=== PATIENT | female | born 1950 | race Caucasian/White ===

== ENCOUNTER 2017-05-07 16:50 | Emergency (ER) | payer MEDICARE, MEDICAID, SELFPAY ==
[2017-05-07 16:50] VITALS: BP 118/58; PULSE 52; RESP 18; TEMP 36.6; O2SAT 95; BMI 28.3
--- NOTE | 2017-05-07 16:58 | XR_ITS ---
XR elbow RT min 3V HISTORY: Pain following injury ITS.REASON: fall c/o pain ORDERING PHYSICIAN: Adrien Mehta MD PATIENT AGE: 66 years COMPARISON: None FINDINGS: BONY STRUCTURES: No fracture or dislocation. No lytic or blastic change. Normal mineralization. SOFT TISSUES: Unremarkable. No radio opaque foreign bodies. No displaced fat pad. JOINT SPACE: Well-preserved. No significant arthritic changes evident. IMPRESSION: Negative right elbow.
--- NOTE | 2017-05-07 16:58 | CT_ITS ---
CT facial bones wo con CLINICAL INDICATION: Patient pain and swelling, contusion, abrasion following injury ITS.REASON: fall ORDERING PHYSICIAN: Adrien Mehta MD PATIENT AGE: 66 years COMPARISON: None TECHNIQUE:Axial, sagittal, and coronal images are generated and reviewed without contrast COMPARISON: None FINDINGS: Bones: Unremarkable. No fracture, lytic, or blastic changes evident Extracranial soft tissues: Unremarkable Sinuses: Unremarkable. No air-fluid levels or significant mucosal thickening Orbits: Unremarkable Other: No other pertinent findings IMPRESSION: NO ACUTE FRACTURE OR OTHER ACUTE ANOMALY
--- NOTE | 2017-05-07 16:58 | CT_ITS ---
CT cervical spine wo con INDICATION: Neck pain following injury ITS.REASON: fall ORDERING PHYSICIAN: Adrien Mehta MD PATIENT AGE: 66 years COMPARISON: None TECHNIQUE: Axial images are obtained without contrast. Sagittal and coronal reformatted images are reviewed as well. FINDINGS: There is normal alignment. Multilevel degenerative disc disease is present with endplate hypertrophic change. No fracture or dislocation. C2-C3: Degenerative disc disease. C3-C4: Degenerative disc disease with endplate osteophytes with borderline canal stenosis along with left lateral recess narrowing C4-C5: Degenerative disc disease with endplate hypertrophic change and canal stenosis. C5-C6: Degenerative disc disease with canal stenosis with endplate osteophyte. Bilateral foraminal narrowing. C6-7: Degenerative disc disease. C7-T1: Unremarkable. There is scarring in the right apex. IMPRESSION: 1. No acute fracture. 2. Cervical spondylosis with degenerative disc disease, endplate disc osteophyte complexes with canal stenosis and facet arthritic change at multiple levels
--- NOTE | 2017-05-07 16:58 | CT_ITS ---
CT head/brain wo con HISTORY: Headache following injury, concussion, contusion with abrasion ITS.REASON: fall ORDERING PHYSICIAN: Adrien Mehta MD PATIENT AGE: 66 years COMPARISON: None TECHNIQUE: Axial images obtained without contrast. Brain and bone windows reviewed. FINDINGS: No midline shift, mass effect, intracranial hemorrhage, hydrocephalus, or extra-axial fluid collection is evident. Chronic white matter ischemic change with mild atrophy The calvarium has an unremarkable appearance. No mastoid effusion. No sinus air-fluid levels.. IMPRESSION: No acute finding.
--- NOTE | 2017-05-07 16:58 | XR_ITS ---
XR hip RT 2-3V w/pelvis HISTORY: Pain following injury ITS.REASON: fall, c/o pain ORDERING PHYSICIAN: Adrien Mehta MD PATIENT AGE: 66 years COMPARISON: 09/28/2016 FINDINGS: There are bilateral total hip prosthesis present. No evidence of acute fracture, dislocation, or prosthesis complication. IMPRESSION: No acute finding, total hip prosthesis present
--- NOTE | 2017-05-07 17:05 | HMH.EDFALL ---
ED Disposition Clinical Impression: Concussion without loss of consciousness Qualifiers: Encounter type: initial encounter Qualified Code(s): S06.0X0A - Concussion without loss of consciousness, initial encounter Facial contusion Qualifiers: Encounter type: initial encounter Qualified Code(s): S00.83XA - Contusion of other part of head, initial encounter Contusion of elbow, right Qualifiers: Encounter type: initial encounter Qualified Code(s): S50.01XA - Contusion of right elbow, initial encounter Disposition: Home, Self-Care Condition on Discharge: Good Additional Instructions: resume orders Referrals: dArien Mehta MD [Primary Care Provider] - - Critical Care Critical Care Time: No Attestation: On , the high probability of a clinically significant, sudden or life threatening deterioration of the following system(s) required my full and direct attention, intervention and personal management. The time I documented below is in addition to time spent performing reported procedures but includes the following listed in this critical care notation. Medical Decision Making - Medical Records Medical records reviewed: Yes: I reviewed the patient's medical records. Vital Signs: 05/07/17 16:50 Temperature 97.8 F Temperature Source Oral Pulse Rate [Right Brachial] 52 L Respiratory Rate 18 Blood Pressure [Right Arm] 118/58 Blood Pressure Mean [Right Arm] 78 Blood Pressure Source [Right Arm] Automatic Cuff Blood Pressure Position [Right Arm] Sitting 02 Sat by Pulse Oximetry 95 Oxygen Delivery Method Room Air Orders (Tests/Meds): ORDERS Category Date Time Status CT cervical spine wo con Stat Cat Scan 05/07/17 16:[address] facial bones wo con Stat Cat Scan 05/07/17 16:[address] head/brain wo con Stat Cat Scan 05/07/17 16:58 Taken XR elbow RT min 3V Stat Exams 05/07/17 16:58 Taken XR hip RT 2-3V w/pelvis Stat Exams 05/07/17 16:58 Taken - Radiology Data #1 Image(s): Elbow, Hip Image Reviewed: Yes I reviewed the patient's radiology image Preliminary Findings: No Fracture Seen - CT Data CT Scan: Head, C-Spine, Sinus Time Received: 18:[address] Reviewed: Yes: I have viewed the radiologist's interpretation Preliminary Findings: No Fracture Seen - Sukhwinder Inquiry Pt receiving controlled substance: No Fall HPI - General Chief Complaint: Fall Stated Complaint: fall Time Seen by Provider: 05/07/17 17:05 Mode of Arrival: EMS Source of Information: Patient, EMS, Medical Record Limitations: No Limitations Description of Symptoms (Recalled from ER Triage Doc. by RN): REPORTS TRIPPED GOING INTO THE BATHROOM CAUSING FALL, UNWITNESSED. PT REPORTS R HIP PAIN, R ELBOW PAIN AND PAIN IN ON R SIE OF FOREHEAD. - History of Present Illness HPI Narrative: trip injury at senior care with head and neck injury and rt elbow and rt hip w/o loc MD complaint: fall Onset (ago): hour(s) Fall from: standing Fall witnessed: yes, by living facility staff Place fall occurred: home Loss of consciousness: none Prolonged down time: no Symptoms prior to fall: none Context: tripped/slipped Location of injury: head, face, neck Location of injury - extremities: Right: elbow, thigh Severity: moderate - Related Data Allergies Allergy/AdvReac Type Severity Reaction Status Date / Time egg [From EGGS (FOOD/DRUG)] Allergy Unknown I-RASH Unverified 04/09/17 15:07 Penicillins [PENICILLINS] Allergy Unknown Unverified 04/09/17 15:07 Sulfa (Sulfonamide Allergy Unknown Unverified 04/09/17 15:07 Antibiotics) [SULFA (SULFONAMIDE ANTIBIOTICS)] trimethoprim [TRIMETHOPRIM] Allergy Unknown Unverified 04/09/17 15:07 From EGGS (FOOD/DRUG) Allergy Unknown I-RASH Uncoded 04/09/17 15:07 [facility] History I have reviewed the patient's past medical history: Yes Medical History: Denies:: Cancer, Diabetes Mellitus Type 1, Diabetes Mellitus Type 2, MRSA Laterality Cases: Bilateral: Total Hip Replacement
[2017-05-07 18:54] VITALS: BP 135/85; PULSE 57; RESP 20; O2SAT 94
== END 2017-05-07 18:56 | disposition home or self-care (01) ==
PROVIDERS: Emergency Provider Emergency Medicine; Family Provider Emergency Medicine; PCP Emergency Medicine
DX: S06.0X0A Concussion without loss of consciousness, initial encounter (principal); S00.83XA Contusion of other part of head, initial encounter; S50.01XA Contusion of right elbow, initial encounter; W01.0XXA Fall on same level from slipping, tripping and stumbling without subsequent striking against object, initial encounter; Y93.01 Activity, walking, marching and hiking; Y92.192 Bathroom in other specified residential institution as the place of occurrence of the external cause; Z96.643 Presence of artificial hip joint, bilateral; Z87.891 Personal history of nicotine dependence
CPT/HCPCS: 70450; 70486; 72125; 73080; 73502; 99283

== ENCOUNTER 2017-05-14 15:28 | Emergency (ER) | payer MEDICARE, MEDICAID, SELFPAY ==
[2017-05-14 15:30] VITALS: BP 117/56; PULSE 56; RESP 16; TEMP 36.7; O2SAT 94; BMI 25.8
--- NOTE | 2017-05-14 15:38 | CT_ITS ---
CT head/brain wo con HISTORY: Headache, contusion, abrasion following injury ITS.REASON: fall ORDERING PHYSICIAN: Dianna Rizzo MD PATIENT AGE: 66 years COMPARISON: 05/07/2017 TECHNIQUE: Axial images obtained without contrast. Brain and bone windows reviewed. FINDINGS: No midline shift, mass effect, intracranial hemorrhage, hydrocephalus, or extra-axial fluid collection is evident. There is atrophy with microangiopathic gliotic change. Skin clips are present in the left parietal area. No evidence of fracture. Mild soft tissue swelling left scalp parietal area. The calvarium has an unremarkable appearance. No mastoid effusion. No sinus air-fluid levels.. IMPRESSION: 1. No acute intracranial finding. 2. Left parietal scalp laceration.
--- NOTE | 2017-05-14 15:39 | CT_ITS ---
CT lumbar spine wo con INDICATION: Low back pain following injury ITS.REASON: fall ORDERING PHYSICIAN: Dianna Rizzo MD PATIENT AGE: 66 years COMPARISON: None TECHNIQUE: Axial images are obtained without contrast. Sagittal and coronal reformatted images are reviewed as well. FINDINGS: Mildly depressed fracture is present involving the left 11th and 12th ribs posteriorly. No lumbar fracture apparent. No dislocation. There is mild anterolisthesis of L5 on S1 of 5 mm which is degenerative in nature with mild degenerative disc disease at L5-S1. Bulging disc at L5-S1 with bilateral foraminal narrowing and canal stenosis. Nonobstructing 2 mm stone is present in the lower pole the right kidney. A moderate amount of retained colonic feces. IMPRESSION: 1. Mildly depressed left 12th and 11th rib fractures. 2. No acute lumbar fracture. 3. Mild anterolisthesis of L5 on S1 with degenerative disc disease, canal stenosis, and bilateral foraminal narrowing
--- NOTE | 2017-05-14 15:39 | CT_ITS ---
CT cervical spine wo con INDICATION: Neck pain following injury ITS.REASON: fall ORDERING PHYSICIAN: Dianna Rizzo MD PATIENT AGE: 66 years COMPARISON: None TECHNIQUE: Axial images are obtained without contrast. Sagittal and coronal reformatted images are reviewed as well. FINDINGS: There is normal alignment. Multilevel degenerative disc disease is present with endplate hypertrophic change. No fracture or dislocation. C2-C3: Degenerative disc disease. C3-C4: Degenerative disc disease with endplate osteophytes with borderline canal stenosis along with left lateral recess narrowing C4-C5: Degenerative disc disease with endplate hypertrophic change and canal stenosis. C5-C6: Degenerative disc disease with canal stenosis with endplate osteophyte. Bilateral foraminal narrowing. C6-7: Degenerative disc disease. C7-T1: Minimal anterolisthesis of C7 3 mm. There is scarring in the right apex. IMPRESSION: 1. No acute fracture. 2. Cervical spondylosis with degenerative disc disease, endplate disc osteophyte complexes with canal stenosis and facet arthritic change at multiple levels
--- NOTE | 2017-05-14 15:39 | XR_ITS ---
XR hip LT 2-3V w/pelvis HISTORY: Pain following injury ITS.REASON: fall ORDERING PHYSICIAN: Dianna Rizzo MD PATIENT AGE: 66 years COMPARISON: 09/28/2016 FINDINGS: Total left hip prosthesis present in good alignment without evidence of acute fracture or other orthopedic complications. IMPRESSION: Left hip prosthesis present, no acute finding
--- NOTE | 2017-05-14 15:39 | CT_ITS ---
CT pelvis wo con INDICATION: Pelvic pain following injury ITS.REASON: fell pelvis pain ORDERING PHYSICIAN: Dianna Rizzo MD PATIENT AGE: 66 years COMPARISON: None TECHNIQUE: Axial images are obtained without contrast. Sagittal and coronal reformatted images are reviewed as well. FINDINGS: There is extensive artifact bilateral hip prosthesis. This could obscure a fracture. No acute fractures evident regarding the areas not affected by the extensive artifact. No obvious pelvic hematoma. Mild amount retained colonic feces. IMPRESSION: 1. Extensive artifact from bilateral hip prosthesis. 2. No obvious acute fracture evident.
--- NOTE | 2017-05-14 15:39 | XR_ITS ---
XR hip RT 2-3V w/pelvis HISTORY: Post traumatic pain ITS.REASON: fall ORDERING PHYSICIAN: Dianna Rizzo MD PATIENT AGE: 66 years COMPARISON: 05/07/2017 FINDINGS: Total right hip prosthesis is present without evidence of fracture or other orthopedic complications. IMPRESSION: No change right hip prosthesis with no acute finding
--- NOTE | 2017-05-14 15:40 | HMH.EDFALL ---
ED Disposition Clinical Impression: Scalp laceration, Rib fracture Disposition: Home, Self-Care Condition on Discharge: Fair Instructions: DI for Low Back Pain Additional Instructions: 1- rest. 2- fall precautions. 3- IR 10 times whilw awake. 4- follow up with pcp jasmina on final x ray reports. Referrals: Adrien Mehta MD [Primary Care Provider] - - Critical Care Critical Care Time: No Attestation: On 05/14/17, the high probability of a clinically significant, sudden or life threatening deterioration of the following system(s) required my full and direct attention, intervention and personal management. The time I documented below is in addition to time spent performing reported procedures but includes the following listed in this critical care notation. Medical Decision Making Vital Signs: 05/14/17 15:30 Temperature 98.1 F Temperature Source Oral Pulse Rate [Right Brachial] 56 L Respiratory Rate 16 Blood Pressure [Right Arm] 117/56 Blood Pressure Mean [Right Arm] 76 Blood Pressure Source [Right Arm] Automatic Cuff Blood Pressure Position [Right Arm] Sitting 02 Sat by Pulse Oximetry 94 L Oxygen Delivery Method Room Air Nasal Cannula - Lab Data Lab Results 05/14/17 16:20: Urine Color Yellow, Urine Appearance Clear, Urine pH 6.0, Ur Specific [place] 1.010, Urine Protein Negative, Urine Glucose (UA) Negative, Urine Ketones Negative, Urine Blood Negative, Urine Nitrate Negative, Urine Bilirubin Negative, Urine Urobilinogen 0.2, Ur Leukocyte Esterase Trace Orders (Tests/Meds): ORDERS Category Date Time Status UA [Urinalysis and Microscopic] Stat Lab 05/14/17 16:20 Results - Radiology Data #1 Image(s): Chest, Hip, Femur Image Reviewed: Yes I reviewed the patient's radiology results, Yes I reviewed the patient's radiology image, Yes I have reviewed radiologist's interpretation - Sukhwinder Inquiry Pt receiving controlled substance: No Sukhwinder was queried for this patient: No Medical Decision Making Narrative: CT pelvis was negative for fractures. Ct LUMbar: IMPRESSION: 1. Mildly depressed left 12th and 11th rib fractures. 2. No acute lumbar fracture. 3. Mild anterolisthesis of L5 on S1 with degenerative disc disease, canal stenosis, and bilateral foraminal narrowing ct scalp was poisitive for a hematoma: CT cervical spine IMPRESSION: 1. No acute fracture. 2. Cervical spondylosis with degenerative disc disease, endplate disc osteophyte complexes with canal stenosis and facet arthritic change at multiple levels Fall HPI - General Chief Complaint: Fall Stated Complaint: fall Mode of Arrival: Ambulatory Limitations: No Limitations Description of Symptoms (Recalled from ER Triage Doc. by RN): fall with injury - History of Present Illness HPI Narrative: 66 years old white female came from [place]. She is status post bilateral hip replacement. She reports that she tripped and fell and hit her head. This resulted in a left occipital laceration. The patient denies loss of consciousness. She complains of left leg pain. MD complaint: fall Onset (ago): minute(s) Fall from: standing Fall witnessed: yes, by living facility staff Place fall occurred: snf/SNF Loss of consciousness: none Prolonged down time: no Context: tripped/slipped Location of injury: head Location of injury - extremities: Left: lower leg Severity: moderate Quality: dull Associated symptoms (after fall): other (He does have low back pain. ) - Related Data Allergies Allergy/AdvReac Type Severity Reaction Status Date / Time egg [From EGGS (FOOD/DRUG)] Allergy Unknown I-RASH Unverified 04/09/17 15:07 Penicillins [PENICILLINS] Allergy Unknown Unverified 04/09/17 15:07 Sulfa (Sulfonamide Allergy Unknown Unverified 04/09/17 15:07 Antibiotics) [SULFA (SULFONAMIDE ANTIBIOTICS)] trimethoprim [TRIMETHOPRIM] Allergy Unknown Unverified 04/09/17 15:07 From EG
--- NOTE | 2017-05-14 15:43 | ED_ITS ---
ED Disposition Clinical Impression: Scalp laceration, Rib fracture Disposition: Home, Self-Care Condition on Discharge: Fair Instructions: DI for Low Back Pain Additional Instructions: 1- rest. 2- fall precautions. 3- IR 10 times whilw awake. 4- follow up with pcp jasmina on final x ray reports. Referrals: Adrien Mehta MD [Primary Care Provider] - - Critical Care Critical Care Time: No Attestation: On 05/14/17, the high probability of a clinically significant, sudden or life threatening deterioration of the following system(s) required my full and direct attention, intervention and personal management. The time I documented below is in addition to time spent performing reported procedures but includes the following listed in this critical care notation. Medical Decision Making Vital Signs: 05/14/17 15:30 Temperature 98.1 F Temperature Source Oral Pulse Rate [Right Brachial] 56 L Respiratory Rate 16 Blood Pressure [Right Arm] 117/56 Blood Pressure Mean [Right Arm] 76 Blood Pressure Source [Right Arm] Automatic Cuff Blood Pressure Position [Right Arm] Sitting 02 Sat by Pulse Oximetry 94 L Oxygen Delivery Method Room Air Nasal Cannula - Lab Data Lab Results 05/14/17 16:20: Urine Color Yellow, Urine Appearance Clear, Urine pH 6.0, Ur Specific [place] 1.010, Urine Protein Negative, Urine Glucose (UA) Negative, Urine Ketones Negative, Urine Blood Negative, Urine Nitrate Negative, Urine Bilirubin Negative, Urine Urobilinogen 0.2, Ur Leukocyte Esterase Trace Orders (Tests/Meds): ORDERS Category Date Time Status UA [Urinalysis and Microscopic] Stat Lab 05/14/17 16:20 Results - Radiology Data #1 Image(s): Chest, Hip, Femur Image Reviewed: Yes I reviewed the patient's radiology results, Yes I reviewed the patient's radiology image, Yes I have reviewed radiologist's interpretation - Sukhwinder Inquiry Pt receiving controlled substance: No Sukhwinder was queried for this patient: No Medical Decision Making Narrative: CT pelvis was negative for fractures. Ct LUMbar: IMPRESSION: 1. Mildly depressed left 12th and 11th rib fractures. 2. No acute lumbar fracture. 3. Mild anterolisthesis of L5 on S1 with degenerative disc disease, canal stenosis, and bilateral foraminal narrowing ct scalp was poisitive for a hematoma: CT cervical spine IMPRESSION: 1. No acute fracture. 2. Cervical spondylosis with degenerative disc disease, endplate disc osteophyte complexes with canal stenosis and facet arthritic change at multiple levels Fall HPI - General Chief Complaint: Fall Stated Complaint: fall Mode of Arrival: Ambulatory Limitations: No Limitations Description of Symptoms (Recalled from ER Triage Doc. by RN): fall with injury - History of Present Illness HPI Narrative: 66 years old white female came from [place]. She is status post bilateral hip replacement. She reports that she tripped and fell and hit her head. This resulted in a left occipital laceration. The patient denies loss of consciousness. She complains of left leg pain. MD complaint: fall Onset (ago): minute(s) Fall from: standing Fall witnessed: yes, by living facility staff Place fall occurred: custodial/SNF Loss of consciousness: none Prolonged down time: no Context: tripped/slipped Location of inj
--- NOTE | 2017-05-14 15:45 | XR_ITS ---
XR femur LT 1V CLINICAL INDICATION: Posttraumatic pain ITS.REASON: fall ORDERING PHYSICIAN: Dianna Rizzo MD PATIENT AGE: 66 years COMPARISON: None FINDINGS: Total left hip prosthesis is present without evidence of acute complication. Mild osteoarthritic change involves the left knee. No acute fracture or dislocation. IMPRESSION: No acute finding
[2017-05-14 16:37] LABS: Appearance,Urine CLEAR (Clear); Bilirubin,Urine Negative (Negative); Blood, Urine Negative (Negative); Color,Urine YELLOW (Yellow); Glucose,Urine (UA) Negative (Negative); Ketones,Urine Negative (Negative); Leukocyte Esterase,Urine TRACE (Negative); Microscopic, Urine URINE MICROSCOPIC (MICROSCOPIC); Nitrate,Urine Negative (Negative); Protein,Urine Negative (Negative); Urobilinogen,Urine 0.2 EU/dl (0.2)
--- NOTE | 2017-05-14 17:00 | XR_ITS ---
XR chest AP HISTORY: ITS.REASON: CHEST PAIN POST FALL ORDERING PHYSICIAN: Dianna Rizzo MD PATIENT AGE: 66 years COMPARISON: 10/24/2016 FINDINGS: Prior median sternotomy. Mild cardiomegaly without failure.. Chronic changes. No lobar consolidation or collapse.. No acute bony abnormalities. IMPRESSION: Cardiomegaly with chronic changes. No acute finding
--- NOTE | 2017-05-14 17:33 | PC.NURSE ---
RU CALLED, ADVISED PT WAS READY TO BE PICKED UP.
[2017-05-14 18:09] LABS: Bacteria,Urine Trace /lpf; Squamous Epithelial Cell,Urine Occasional #/hpf (0-5); WBC,Urine Occasional #/hpf (0-3)
== END 2017-05-14 19:09 | disposition home or self-care (01) ==
PROVIDERS: Emergency Provider Emergency Medicine; Family Provider Emergency Medicine; PCP Emergency Medicine
DX: S01.01XA Laceration without foreign body of scalp, initial encounter (principal); S22.42XA Multiple fractures of ribs, left side, initial encounter for closed fracture; W01.0XXA Fall on same level from slipping, tripping and stumbling without subsequent striking against object, initial encounter; Y93.9 Activity, unspecified; Y92.129 Unspecified place in nursing home as the place of occurrence of the external cause; Z96.643 Presence of artificial hip joint, bilateral; Z87.891 Personal history of nicotine dependence; Z88.0 Allergy status to penicillin; Z88.2 Allergy status to sulfonamides
CPT/HCPCS: 12001; 70450; 71045; 72125; 72131; 72192; 73502; 73551; 81001; 99282

== ENCOUNTER 2017-05-15 14:26 | Emergency (ER) | payer MEDICARE, MEDICAID, SELFPAY ==
[2017-05-15 14:28] VITALS: BP 192/51; PULSE 50; RESP 12; TEMP 36.5; O2SAT 98; BMI 27.4
--- NOTE | 2017-05-15 15:00 | CT_ITS ---
CT head/brain wo con HISTORY: Headache, contusion, abrasion following injury, frontal scalp contusion/laceration ITS.REASON: FELL AT [facility] ORDERING PHYSICIAN: Mulugeta Cristina MD PATIENT AGE: 66 years COMPARISON: 05/14/2017 TECHNIQUE: Axial images obtained without contrast. Brain and bone windows reviewed. FINDINGS: No midline shift, mass effect, intracranial hemorrhage, hydrocephalus, or extra-axial fluid collection is evident. Mild generalized atrophy with microangiopathic gliotic changes. Increased soft tissue swelling is present in the left parietal region with skin clips at that area. The calvarium has an unremarkable appearance. No mastoid effusion. No sinus air-fluid levels.. IMPRESSION: 1. No acute intracranial findings. 2. Left parietal scalp hematoma is larger on today's exam.
--- NOTE | 2017-05-15 15:00 | CT_ITS ---
CT cervical spine wo con INDICATION: Neck pain following injury ITS.REASON: FELL AT CARE HOME COMPARISON: None TECHNIQUE: Axial images are obtained without contrast. Sagittal and coronal reformatted images are reviewed as well. FINDINGS: There is normal alignment. Multilevel degenerative disc disease is present with endplate hypertrophic change. No fracture or dislocation. C2-C3: Degenerative disc disease. C3-C4: Degenerative disc disease with endplate osteophytes with borderline canal stenosis along with left lateral recess narrowing C4-C5: Degenerative disc disease with endplate hypertrophic change and canal stenosis. C5-C6: Degenerative disc disease with canal stenosis with endplate osteophyte. Bilateral foraminal narrowing. C6-7: Degenerative disc disease. C7-T1: Minimal anterolisthesis of C7 3 mm. There is scarring in the right apex. Left lobe of thyroid gland is slightly enlarged. Scattered small lymph nodes are present in the neck IMPRESSION: 1. No acute fracture. 2. Cervical spondylosis with degenerative disc disease, endplate disc osteophyte complexes with canal stenosis and facet arthritic change at multiple levels
[2017-05-15 16:34] VITALS: BP 114/84; PULSE 94; RESP 16; O2SAT 99
--- NOTE | 2017-05-15 16:36 | HMH.EDGENADL ---
ED Disposition Condition on Discharge: Good - Critical Care Critical Care Time: No <Mulugeta Cristina - Last Filed: 05/15/17 20:28> <Adrien Mehta - Last Filed: 05/16/17 08:56> Clinical Impression: Scalp hematoma Qualifiers: Encounter type: initial encounter Qualified Code(s): S00.03XA - Contusion of scalp, initial encounter Fall Qualifiers: Encounter type: initial encounter Qualified Code(s): W19.XXXA - Unspecified fall, initial encounter Dilantin toxicity Qualifiers: Encounter type: initial encounter Injury intent: accidental or unintentional Qualified Code(s): T42.0X1A - Poisoning by hydantoin derivatives, accidental (unintentional), initial encounter Disposition: Home, Self-Care Instructions: How to Prevent Falls, DI for Closed Head Injury Additional Instructions: Additional instructions for HEAD INJURY: See your physician as soon as possible for further evaluation. Return immediately if severe headache, vomiting, problems with vision or speech, numbness or weakness of the extremities, or severe neck pain. Referrals: Adrien Mehta MD [Primary Care Provider] - Attestation: On 05/15/17, the high probability of a clinically significant, sudden or life threatening deterioration of the following system(s) required my full and direct attention, intervention and personal management. The time I documented below is in addition to time spent performing reported procedures but includes the following listed in this critical care notation. Medical Decision Making - Lab Data Result diagrams: 05/15/17 17:40 05/15/17 17:40 - CT Data CT Scan: Head, C-Spine Time Received: 16:[address] Reviewed: Yes: I have viewed the radiologist's interpretation - Sukhwinder Inquiry Pt receiving controlled substance: No <Mulugeta Cristina - Last Filed: 05/15/17 20:28> - Lab Data Result diagrams: 05/15/17 17:40 05/15/17 17:40 <Adrien Mehta - Last Filed: 05/16/17 08:56> Vital Signs: 05/15/17 14:28 05/15/17 16:34 05/15/17 18:34 Temperature 97.7 F 97.7 F Temperature Source Oral Axillary Pulse Rate [Right Brachial] 50 L 94 H 57 L Respiratory Rate 12 16 18 Blood Pressure [Right Arm] 192/51 114/84 198/65 Blood Pressure Mean [Right Arm] 98 94 109 Blood Pressure Source [Right Arm] Automatic Cuff Automatic Cuff Automatic Cuff Blood Pressure Position [Right Arm] Supine Sitting Supine 02 Sat by Pulse Oximetry 98 99 100 Oxygen Delivery Method Room Air Room Air Room Air 05/15/17 22:18 05/16/17 01:37 Temperature Temperature Source Pulse Rate [Right Brachial] 55 L 52 L Respiratory Rate 18 16 Blood Pressure [Right Arm] 190/44 193/65 Blood Pressure Mean [Right Arm] 92 107 Blood Pressure Source [Right Arm] Automatic Cuff Automatic Cuff Blood Pressure Position [Right Arm] Supine Supine 02 Sat by Pulse Oximetry 97 100 Oxygen Delivery Method Room Air Room Air - Lab Data Lab Results 05/15/17 17:40: WBC 9.1, RBC 4.17 L, Hgb 13.0, Hct 39.2, MCV 94.0, MCH 31.2, MCHC 33.1, RDW 14.8, Plt Count 194, MPV 8.1, Neut % (Auto) 72.9, Lymph % (Auto) 17.3, [place] % (Auto) 5.2, Eos % (Auto) 4.1, Baso % (Auto) 0.5, Neut # (Auto) 6.7, Lymph # (Auto) 1.6, [place] # (Auto) 0.5, Eos # (Auto) 0.4, Baso # (Auto) 0.0 05/15/17 17:40: Sodium 148 H, Potassium 3.5, Chloride 106, Carbon Dioxide 33 H, Anion Gap 12.5, BUN 8, Creatinine 0.76, Estimated Creat Clear 63, Estimated GFR 76, Est GFR ( Amer) 92, Glucose 121 H, Calcium 8.5, Total Bilirubin 0.6, AST 25, ALT 24, Alkaline Phosphatase 175 H, Total Creatine Kinase 183, CK-MB (CK-2) 1.2, CK-MB (CK-2) Rel Index 0.7, Troponin I 0.03, Total Protein 6.7, Albumin 3.6, Globulin 3.1, Albumin/Globulin Ratio 1.2, Phenytoin 50.5 H* 05/15/17 17:40: Urine Color Yellow, Urine Appearance Clear, Urine pH 7.5, Ur Specific [place] 1.010, Urine Protein Negative, Urine Glucose (UA) Negative, Urine Ketones Negative, Urine Blood 1+, Urine Nitrate Negative, Urine Bilirubin Negative, Urine Urobilinogen 0.2, Ur Le
--- NOTE | 2017-05-15 16:59 | XR_ITS ---
XR chest portable HISTORY: Cough and congestion ITS.REASON: cough, congestion ORDERING PHYSICIAN: Mulugeta Cristina MD PATIENT AGE: 66 years COMPARISON: 05/14/2017 FINDINGS: Prior median sternotomy with mild cardiomegaly without failure.. The lungs are clear without infiltrates, suspicious nodules, or pleural effusions. No acute bony abnormalities. IMPRESSION: No change with no acute finding
--- NOTE | 2017-05-15 17:02 | PC.NURSE ---
INFORMED P.T. THAT A P.T. EVAL HAS BEEN ORDERED ON PATIENT. STATED ALL PHYSICAL THERAPISTS WERE WITH PATIENT'S. I ASKED IF SHE COULD RELAY THE MESSAGE TO THEM. I INFORMED SHARLA, CARE MANAGEMENT OF REQUEST.
[2017-05-15 18:01] LABS: Microscopic, Urine URINE MICROSCOPIC (MICROSCOPIC)
[2017-05-15 18:06] LABS: Basophils % 0.5 % (0.1-2.0); Eosinophils # 0.4 K/mm3 (0.0-0.4); Eosinophils % 4.1 % (0.1-12.0); Hematocrit 39.2 % (37.0-47.0); Lymphocytes # 1.6 K/mm3 (0.7-4.5); Lymphocytes % 17.3 K/mm3 (10-50); Mean Corpuscular HGB Conc 33.1 g/dL (31.8-35.4); Mean Corpuscular Hemoglobin 31.2 pg (27.0-31.2); Mean Platelet Volume 8.1 fl (7.4-10.4); Monocytes # 0.5 K/mm3 (0.1-1.0); Monocytes % 5.2 % (1.7-9.3); Neutrophils # 6.7 K/mm3 (1.8-7.8); Neutrophils % 72.9 % (37.0-80.0); Platelet Count 194 K/mm3 (142-424); Red Blood Count 4.17 M/mm3 (4.20-5.40); Red Cell Distribution Width 14.8 % (11.5-17.5); White Blood Count 9.1 K/mm3 (4.8-10.8)
[2017-05-15 18:08] LABS: Appearance,Urine CLEAR (Clear); Bilirubin,Urine Negative (Negative); Blood, Urine 1+ (Negative); Color,Urine YELLOW (Yellow); Glucose,Urine (UA) Negative (Negative); Ketones,Urine Negative (Negative); Leukocyte Esterase,Urine Negative (Negative); Nitrate,Urine Negative (Negative); PH,Urine 7.5 (5.0-8.5); Protein,Urine Negative (Negative); Urobilinogen,Urine 0.2 EU/dl (0.2)
[2017-05-15 18:34] VITALS: BP 198/65; PULSE 57; RESP 18; TEMP 36.5; O2SAT 100
[2017-05-15 18:34] LABS: RBC,Urine Occasional #/hpf (0-3); Squamous Epithelial Cell,Urine Occasional #/hpf (0-5)
[2017-05-15 18:35] LABS: Hyaline Casts,Urine Occasional #/lpf (0)
[2017-05-15 18:38] LABS: Alanine Aminotransferase 24 U/L (12-78); Albumin Level 3.6 gm/dL (3.4-5.0); Albumin/Globulin Ratio 1.2 (1.1-1.8); Alkaline Phosphatase 175 U/L (46-116); Anion Gap 12.5 mEq/L (5-15); Aspartate Amino Transferase 25 U/L (15-37); Bilirubin,Total 0.6 mg/dL (0.2-1.0); Blood Urea Nitrogen 8 mg/dL (7-18); Calcium 8.5 mg/dL (8.5-10.1); Carbon Dioxide 33 mmol/L (21.0-32.0); Chloride 106 mmol/L (98-107); Creatine Kinase 183 U/L (26-192); Creatinine Clearance Estimated 63 mL/min (0-300); Creatinine,Serum 0.76 mg/dL (0.55-1.02); Estimated Glomerular Filt Rate 76 ml/min (>60); GFR (African American) 92 ML/MIN (>60); Globulin 3.1 gm/dl (1.3-3.2); Glucose 121 mg/dL (74-106); Potassium 3.5 mmoL/L (3.5-5.1); Sodium 148 mmol/L (136-145); Total Protein,Serum 6.7 gm/dL (6.4-8.2); Troponin I 0.03 ng/ml (0.00-0.06)
--- NOTE | 2017-05-15 18:41 | SW/DCPLANNER ---
Addendum entered by Greta Dhillon 05/15/17 19:24: MD has not made decision to admit or discharge at this time. I have informed Tiffany of situation and I have also asked that ED nurse (Janki) contact Tiffany if MD decides to discharge before 9pm and if patient is ready for discharge after 9pm then to call [facility] at [phone] and Tiffany has stated that they will send a otr company driver up once ready. If patient is admitted I will follow up with Tiffany and placement in the AM. Original Note: I have spoke with Tiffany from [facility] regarding this patient this evening. Earlier this evening ED MD did not see a reason to admit this patient and asked PT to see patient. PT stated that they would not be able to see this patient this evening due to having a full schedule. I called and informed Dae of this situation and Tiffany stated that she was fine with this and if patient was ready to be discharged she would send a worker to pick patient up. I then spoke with and he stated that he would prefer do a full work up on this patient then make a decision. Tiffany is aware of situation. Once makes decision after reviewing full work up labs I will contact Tiffany from [facility].
[2017-05-15 19:10] LABS: CKMB Relative Index 0.7 U/L (0-4.0); Creatine Kinase MB 1.2 mg/ml (0.0-3.6)
[2017-05-15 19:11] LABS: Phenytoin (Dilantin) 50.5 ug/mL (10-20)
[2017-05-15 22:18] VITALS: BP 190/44; PULSE 55; RESP 18; O2SAT 97
--- NOTE | 2017-05-15 22:20 | PC.NURSE ---
PT RESTING IN ROOM NO NEEDS EXPRESSED AT THIS TIME. WILL CONTINUE TO MONITOR
[2017-05-16 01:37] VITALS: BP 193/65; PULSE 52; RESP 16; O2SAT 100
[2017-05-16 06:41] LABS: Phenytoin (Dilantin) 38.9 ug/mL (10-20)
[2017-05-16 09:08] LABS: Phenytoin (Dilantin) 37.8 ug/mL (10-20)
[2017-05-16 11:00] VITALS: BP 177/67; PULSE 75; RESP 20; TEMP 36.9; O2SAT 96
== END 2017-05-16 11:01 | disposition home or self-care (01) ==
PROVIDERS: Emergency Medicine; Emergency Provider Emergency Medicine; Family Provider Emergency Medicine; PCP Emergency Medicine
DX: S06.0X0A Concussion without loss of consciousness, initial encounter (principal); S50.01XA Contusion of right elbow, initial encounter; S22.39XA Fracture of one rib, unspecified side, initial encounter for closed fracture; T42.0X1A Poisoning by hydantoin derivatives, accidental (unintentional), initial encounter; I10 Essential (primary) hypertension; Z95.1 Presence of aortocoronary bypass graft; F25.9 Schizoaffective disorder, unspecified; W01.0XXA Fall on same level from slipping, tripping and stumbling without subsequent striking against object, initial encounter; Z91.81 History of falling; Y92.199 Unspecified place in other specified residential institution as the place of occurrence of the external cause; Z79.899 Other long term (current) drug therapy; Z88.0 Allergy status to penicillin; Z88.2 Allergy status to sulfonamides; Z90.49 Acquired absence of other specified parts of digestive tract; Z90.79 Acquired absence of other genital organ(s)
CPT/HCPCS: 70450; 71045; 72125; 80053; 80185; 81001; 82550; 82553; 84484; 85025; 93005; 96365; 99284

== ENCOUNTER 2017-07-23 13:29 | Emergency (ER) | payer MEDICARE, MEDICAID, SELFPAY ==
[2017-07-23] VITALS (7 sets, daily range): BP systolic 89–188; BP diastolic 52–86; PULSE 56–89; RESP 8–18; TEMP 36.1–36.9; O2SAT 96–98; BMI 21.2; BMI 21.4
--- NOTE | 2017-07-23 12:43 | CT_ITS ---
CT head/brain wo con COMPARISON: Noncontrast CT scan of brain 05/15/2017 HISTORY: Patient unresponsive, stroke alert TECHNIQUE: Multiaxial scans obtained from base skull to the vertex and were performed without IV contrast. FINDINGS: The base of skull appears normal, the mastoids are clear. The basilar cisterns are mildly prominent. The ventricular system is normal for age. There is no ischemic infarct or bleed and there are no extra-axial fluid collections. There are mild periventricular hypodensities consistent with chronic ischemic white matter changes. The sylvian fissures and cortical sulci are somewhat prominent. The bony calvarium appears intact. IMPRESSION: No acute findings . Mild cortical atrophy and mild chronic ischemic white matter changes, no acute intracranial pathology noted No significant change since 05/15/2017
--- NOTE | 2017-07-23 12:44 | XR_ITS ---
XR pelvis 1-2V COMPARISON: CT scan the pelvis 05/14/2017 HISTORY: Questionable fall, patient unresponsive cannot give history TECHNIQUE: AP pelvis FINDINGS: The iliac bones appear intact although the right iliac crest is cut off from the top edge of the [id number]. Bilateral total hip prosthesis on noted in each prosthetic acetabulum is fixated to the ilium by a threaded screw. There is good position of the medullary stem in the proximal femurs bilaterally. The soft tissues are normal and the pubic bones are normal. IMPRESSION: No acute pelvic fracture identified
--- NOTE | 2017-07-23 12:44 | XR_ITS ---
XR chest portable COMPARISON: AP spine chest 05/14/2017 HISTORY: Altered mental status, chest pain TECHNIQUE: Portable upright chest FINDINGS: The lung dutta are well expanded and appear clear of infiltrate. There are sternal wire sutures noted likely from previous CABG there is prominent aortic tortuosity with borderline cardio megaly however the is no evidence of failure. There is no pleural fluid. IMPRESSION: Prominent aortic tortuosity, no acute chest pathology noted
[2017-07-23 12:56] LABS: Basophils % 0.4 % (0.1-2.0); Eosinophils # 0.2 K/mm3 (0.0-0.4); Eosinophils % 1.7 % (0.1-12.0); Hematocrit 38.8 % (37.0-47.0); Hemoglobin 12.7 g/dL (12.2-16.2); Lymphocytes # 1.6 K/mm3 (0.7-4.5); Lymphocytes % 14.6 K/mm3 (10-50); Mean Corpuscular HGB Conc 32.8 g/dL (31.8-35.4); Mean Corpuscular Hemoglobin 31.2 pg (27.0-31.2); Mean Platelet Volume 8.2 fl (7.4-10.4); Monocytes # 0.7 K/mm3 (0.1-1.0); Monocytes % 6.7 % (1.7-9.3); Neutrophils # 8.4 K/mm3 (1.8-7.8); Neutrophils % 76.6 % (37.0-80.0); Platelet Count 197 K/mm3 (142-424); Red Blood Count 4.09 M/mm3 (4.20-5.40); Red Cell Distribution Width 14.2 % (11.5-17.5); White Blood Count 10.9 K/mm3 (4.8-10.8)
[2017-07-23 13:02] LABS: Alanine Aminotransferase 18 U/L (12-78); Albumin Level 3.4 gm/dL (3.4-5.0); Albumin/Globulin Ratio 1.1 (1.1-1.8); Alkaline Phosphatase 83 U/L (46-116); Anion Gap 9.6 mEq/L (5-15); Aspartate Amino Transferase 21 U/L (15-37); Bilirubin,Total 0.7 mg/dL (0.2-1.0); Blood Urea Nitrogen 12 mg/dL (7-18); Calcium 9.2 mg/dL (8.5-10.1); Carbon Dioxide 31 mmol/L (21.0-32.0); Chloride 107 mmol/L (98-107); Creatinine Clearance Estimated 48 mL/min (0-300); Creatinine,Serum 0.82 mg/dL (0.55-1.02); Estimated Glomerular Filt Rate 70 ml/min (>60); GFR (African American) 84 ML/MIN (>60); Globulin 3.1 gm/dl (1.3-3.2); Glucose 95 mg/dL (74-106); Potassium 3.6 mmoL/L (3.5-5.1); Sodium 144 mmol/L (136-145); Total Protein,Serum 6.5 gm/dL (6.4-8.2)
[2017-07-23 13:14] LABS: Microscopic, Urine URINE MICROSCOPIC (MICROSCOPIC)
[2017-07-23 13:16] LABS: ABG Base Excess 3.4 mmol/L (-2.4-2.3); ABG Oxygen Saturation 99 % (90-100); ABG PCO2 44.9 mmhg (35.0-45.0); ABG PH 7.41 mmol/L (7.35-7.45); ABG PO2 274.1 mmhg (80-100); ABG TCO2 29.4 mmhg (23-27); Allen's Test Patient Unable; Oxygen 100% %
[2017-07-23 13:17] LABS: Source Left Radial
[2017-07-23 13:18] LABS: Appearance,Urine CLEAR (Clear); Bilirubin,Urine Negative (Negative); Blood, Urine 1+ (Negative); Color,Urine YELLOW (Yellow); Glucose,Urine (UA) Negative (Negative); Ketones,Urine Negative (Negative); Leukocyte Esterase,Urine 2+ (Negative); Nitrate,Urine Negative (Negative); PH,Urine 7.5 (5.0-8.5); Protein,Urine Negative (Negative); Specific Gravity, Urine <= 1.005 (1.005-1.030)
[2017-07-23 13:29] LABS: Bacteria,Urine 3+ /lpf; RBC,Urine Occasional #/hpf (0-3); Squamous Epithelial Cell,Urine Occasional #/hpf (0-5)
--- NOTE | 2017-07-23 13:33 | CT_ITS ---
CT angio chest COMPARISON: AP chest same date HISTORY: Altered mental status, chest pain TECHNIQUE: Multiaxial scans obtained from the thoracic inlet the hemidiaphragms after injection of IV contrast. Sagittal and coronal reformats were evaluated as well. FINDINGS: Lung dutta are well expanded. There is mild generalized cardio megaly. An there are sternal wire sutures likely from previous bypass procedure. There is prominent aortic tortuosity and there is mild aneurysmal dilatation of the ascending aorta measuring 3.8 to 4.4 cm. There is no evidence of aortic dissection. The descending thoracic aorta is mildly dilated as well measuring 3.5 cm in diameter. There is no evidence of PE. The lung dutta are clear of active infiltrate. There is no pleural fluid. There are mild multilevel degenerative changes of the thoracic spine. IMPRESSION: Mild aneurysmal dilatation of the ascending aorta and descending thoracic aorta near the diaphragmatic hiatus without evidence of aortic dissection. There is mild to moderate cardiomegaly without evidence of failure.
--- NOTE | 2017-07-23 13:34 | PC.NURSE ---
escorted patient to ct for cta chest. pt remains unresponsive to anything other than painful stimuli. at that point she simply grimaces both sides of face moving unilaterally.
--- NOTE | 2017-07-23 13:35 | PC.NURSE ---
MALIK MALONE spoke with pt daughter on the phone at this time
--- NOTE | 2017-07-23 13:39 | PC.NURSE ---
MALIK MALONE contacted [facility] [place], spoke with staff who was taking care of pt today
[2017-07-23 13:43] LABS: D-Dimer 1320 ng/mL (0-400)
--- NOTE | 2017-07-23 13:46 | PC.NURSE ---
Pt return from CT PE protocol with staff accompanying pt.
--- NOTE | 2017-07-23 13:48 | PC.NURSE ---
contacted [employer] to check flight status per ER MD request.
--- NOTE | 2017-07-23 13:50 | PC.NURSE ---
[employer] [place] [facility] declined flight r/t weather, dispatch stated they would check with other bases and call us back.
[2017-07-23 13:54] LABS: CKMB Relative Index 2.2 U/L (0-4.0); Creatine Kinase 129 U/L (26-192); Creatine Kinase MB 2.9 ng/ml (0.0-3.6); Troponin I < 0.02 ng/ml (0.00-0.06)
--- NOTE | 2017-07-23 13:55 | HMH.EDAMS ---
ED Disposition Clinical Impression: CVA (cerebral vascular accident), Status epilepticus, Ascending aortic aneurysm, CAD (coronary artery disease), Sinus bradycardia, Altered mental status Disposition: Xfer Short-Term Hosp Condition on Discharge: Fair Instructions: DI for Altered Mental Status Referrals: Adrien Mehta MD [Primary Care Provider] - Forms: Transfer Record - ED - Critical Care Critical Care Time: Yes (1 hour) Attestation: On , the high probability of a clinically significant, sudden or life threatening deterioration of the following system(s) required my full and direct attention, intervention and personal management. The time I documented below is in addition to time spent performing reported procedures but includes the following listed in this critical care notation. Vital system(s) involved:: Circulatory Failure, Central Nervous System My critical care processes included: Assessment & monitoring of V/S, Initial and Re-exams, Data Review/Interpretation, Coordinating Care, Medication Orders and management, Documentation Medical Decision Making - Medical Records Medical records reviewed: Yes: I reviewed the patient's medical records. - Sukhwinder Inquiry Pt receiving controlled substance: No Sukhwinder was queried for this patient: No Vital Signs: 07/23/17 12:59 07/23/17 13:51 07/23/17 14:00 Temperature 98.4 F Temperature Source Rectal Pulse Rate [Apical] 56 L 60 Pulse Rate [Right Brachial] 66 Respiratory Rate 8 L 8 L 18 Blood Pressure [Left Arm] 188/52 89/57 Blood Pressure [Right Arm] 180/60 Blood Pressure Mean [Left Arm] 97 67 Blood Pressure Mean [Right Arm] 100 Blood Pressure Source [Left Arm] Manual Cuff/ Auscultation Automatic Cuff Blood Pressure Source [Right Arm] Manual Cuff/ Auscultation Automatic Cuff Blood Pressure Position [Left Arm] Supine Sitting Blood Pressure Position [Right Arm] Sitting Supine 02 Sat by Pulse Oximetry 98 98 Oxygen Delivery Method Room Air Non-Rebreather Oxygen Flow Rate (LPM) 07/23/17 14:30 07/23/17 14:53 07/23/17 15:12 Temperature 97 F L 98.4 F Temperature Source Rectal Rectal Pulse Rate [Apical] 84 63 Pulse Rate [Right Brachial] 89 59 L Respiratory Rate 16 16 Blood Pressure [Left Arm] 172/58 Blood Pressure [Right Arm] 101/71 152/75 Blood Pressure Mean [Left Arm] 96 Blood Pressure Mean [Right Arm] 81 100 Blood Pressure Source [Left Arm] Automatic Cuff Blood Pressure Source [Right Arm] Automatic Cuff Automatic Cuff Blood Pressure Position [Left Arm] Sitting Blood Pressure Position [Right Arm] Sitting Supine 02 Sat by Pulse Oximetry 97 96 98 Oxygen Delivery Method Mechanical Ventilation Mechanical Ventilation Oxygen Flow Rate (LPM) 45 - Lab Data Lab Results 07/23/17 12:43: WBC 10.9 H, RBC 4.09 L, Hgb 12.7, Hct 38.8, MCV 95.0, MCH 31.2, MCHC 32.8, RDW 14.2, Plt Count 197, MPV 8.2, Neut % (Auto) 76.6, Lymph % (Auto) 14.6, [place] % (Auto) 6.7, Eos % (Auto) 1.7, Baso % (Auto) 0.4, Neut # (Auto) 8.4 H, Lymph # (Auto) 1.6, [place] # (Auto) 0.7, Eos # (Auto) 0.2, Baso # (Auto) 0.0 07/23/17 12:43: Sodium 144, Potassium 3.6, Chloride 107, Carbon Dioxide 31, Anion Gap 9.6, BUN 12, Creatinine 0.82, Estimated Creat Clear 48, Estimated GFR 70, Est GFR ( Amer) 84, Glucose 95, Calcium 9.2, Total Bilirubin 0.7, AST 21, ALT 18, Alkaline Phosphatase 83, Total Protein 6.5, Albumin 3.4, Globulin 3.1, Albumin/Globulin Ratio 1.1 07/23/17 12:43: B-Natriuretic Peptide 460 H 07/23/17 13:00: Urine Color Yellow, Urine Appearance Clear, Urine pH 7.5, Ur Specific [place] <= 1.005, Urine Protein Negative, Urine Glucose (UA) Negative, Urine Ketones Negative, Urine Blood 1+, Urine Nitrate Negative, Urine Bilirubin Negative, Urine Urobilinogen 1.0, Ur Leukocyte Esterase 2+ A, Urine RBC Occasional, Urine WBC 3-5, Ur Squamous Epith Cells Occasional, Urine Bacteria 3+ 07/23/17 13:05: Lactic Acid 1.0 07/23/17 13:05: D-Dimer 1320 H* 07/23/17 13:05: Total
--- NOTE | 2017-07-23 13:57 | PC.NURSE ---
speaking with [place] stroke team
--- NOTE | 2017-07-23 13:59 | ED_ITS ---
ED Disposition Clinical Impression: CVA (cerebral vascular accident), Status epilepticus, Ascending aortic aneurysm , CAD (coronary artery disease), Sinus bradycardia, Altered mental status Disposition: Xfer Short-Term Hosp Condition on Discharge: Fair Instructions: DI for Altered Mental Status Referrals: Adrien Mehta MD [Primary Care Provider] - Forms: Transfer Record - ED - Critical Care Critical Care Time: Yes (1 hour) Attestation: On , the high probability of a clinically significant, sudden or life threatening deterioration of the following system(s) required my full and direct attention, intervention and personal management. The time I documented below is in addition to time spent performing reported procedures but includes the following listed in this critical care notation. Vital system(s) involved:: Circulatory Failure, Central Nervous System My critical care processes included: Assessment & monitoring of V/S, Initial and Re-exams, Data Review/Interpretation, Coordinating Care, Medication Orders and management, Documentation Medical Decision Making - Medical Records Medical records reviewed: Yes: I reviewed the patient's medical records. - Sukhwinder Inquiry Pt receiving controlled substance: No Sukhwinder was queried for this patient: No Vital Signs: 07/23/17 12:59 07/23/17 13:51 07/23/17 14:00 Temperature 98.4 F Temperature Source Rectal Pulse Rate [Apical] 56 L 60 Pulse Rate [Right Brachial] 66 Respiratory Rate 8 L 8 L 18 Blood Pressure [Left Arm] 188/52 89/57 Blood Pressure [Right Arm] 180/60 Blood Pressure Mean [Left Arm] 97 67 Blood Pressure Mean [Right Arm] 100 Blood Pressure Source [Left Arm] Manual Cuff/ Auscultation Automatic Cuff Blood Pressure Source [Right Arm] Manual Cuff/ Auscultation Automatic Cuff Blood Pressure Position [Left Arm] Supine Sitting Blood Pressure Position [Right Arm] Sitting Supine 02 Sat by Pulse Oximetry 98 98 Oxygen Delivery Method Room Air Non-Rebreather Oxygen Flow Rate (LPM) 07/23/17 14:30 07/23/17 14:53 07/23/17 15:12 Temperature 97 F L 98.4 F Temperature Source Rectal Rectal Pulse Rate [Apical] 84 63 Pulse Rate [Right Brachial] 89 59 L Respiratory Rate 16 16 Blood Pressure [Left Arm] 172/58 Blood Pressure [Right Arm] 101/71 152/75 Blood Pressure Mean [Left Arm] 96 Blood Pressure Mean [Right Arm] 81 100 Blood Pressure Source [Left Arm] Automatic Cuff Blood Pressure Source [Right Arm] Automatic Cuff Automatic Cuff Blood Pressure Position [Left Arm] Sitting Blood Pressure Position [Right Arm] Sitting Supine 02 Sat by Pulse Oximetry 97 96 98 Oxygen Delivery Method Mechanical Ventilation Mechanical Ventilation Oxygen Flow Rate (LPM) 45 - Lab Data Lab Results 07/23/17 12:43: WBC 10.9 H, RBC 4.09 L, Hgb 12.7, Hct 38.8, MCV 95.0, MCH 31.2, MCHC 32.8, RDW 14.2, Plt Count 197, MPV 8.2, Neut % (Auto) 76.6, Lymph % (Auto) 14.6, [place] % (Auto) 6.7, Eos % (Auto) 1.7, Baso % (Auto) 0.4, Neut # (Auto) 8.4 H, Lymph # (Auto) 1.6, [place] # (Auto) 0.7, Eos # (Auto) 0.2, Baso # (Auto) 0.0 07/23/17 12:43: Sodium 144, Potassium 3.6, Chloride 107, Carbon Dioxide 31, Anion Gap 9.6, BUN 12, Creatinine 0.82, Estimated Creat Clear 48, Estimated GFR 70, Est GFR ( Amer) 84, Glucose 95, Calcium 9.2, Total Bilirubin
--- NOTE | 2017-07-23 14:14 | PC.NURSE ---
PT ACCEPTED BY DOCTOR RUBIO AT ER.
--- NOTE | 2017-07-23 14:35 | XR_ITS ---
XR chest portable COMPARISON: Portable upright chest 1:20 PM same date HISTORY: Post intubation TECHNIQUE: Portable spine chest FINDINGS: There is NG tube in place with the tip projecting towards the greater curvature of the stomach. There is an endotracheal tube in good position approximately 2.5 centers above the kari. The lung dutta remain clear of infiltrate. IMPRESSION: Satisfactory position of endotracheal tube and NG tube
--- NOTE | 2017-07-23 15:36 | PC.NURSE ---
[facility]A/RESPIRATORY ARREST: PT UNABLE TO MAINTAIN AIRWAY, GCS <8; aT APPROX 1420 ETOMIDATE 12MG GIVEN, ATTEMPTED TO INTUBATE WITHOUT SUCCESS PER DR ALBERT. ADDITION ETOMIDATE 15MG GIVEN, ALONG WITH 70 MG SUCCS. SEE MAR. AT 1425 PT WAS HYPERVENTILATED AND THEN SUCCESSFUL PLACEMENT OF 7.5 ET TUBE, LINED AT 22. 16 FR NG TUBE PLACED AND STABILIZED, 60 AT THE NARE. AT 1438, A VERSED 5MG IVP BOLUS WAS GIVEN AND TOLERATED WELL FOR PATIENTS COUGHING. PT PLACED ON VENTILATOR WITH INITIAL SETTINGS 475-16; FIO2 45%; NO PEEP.
[2017-07-23 15:37] LABS: Valproic Acid, (Depakene) 2.5 ug/mL (50-100)
[2017-07-26 07:19] LABS: POC Glucose,Bedside 90 (70-110)
== END 2017-07-23 17:42 | disposition short-term general hospital (02) ==
PROVIDERS: Emergency Provider Emergency Medicine; Family Provider Emergency Medicine; PCP Emergency Medicine
DX: I63.9 Cerebral infarction, unspecified (principal); G40.901 Epilepsy, unspecified, not intractable, with status epilepticus; I71.2 Thoracic aortic aneurysm, without rupture; I25.10 Atherosclerotic heart disease of native coronary artery without angina pectoris; R00.1 Bradycardia, unspecified; Z87.891 Personal history of nicotine dependence; Z96.641 Presence of right artificial hip joint; Z96.642 Presence of left artificial hip joint; R06.02 Shortness of breath; G20 Parkinson's disease
CPT/HCPCS: 31500; 70450; 71045; 71275; 72170; 80053; 80164; 81001; 82550; 82553; 82803; 82962; 83605; 83880; 84484; 85025; 85378; 87040; 87086; 87088; 87186; 92950; 93005; 96365; 96366; 96367; 96374; 96375; 99291; J0330; Q9967

== ENCOUNTER 2017-07-28 08:31 | Emergency (ER) | payer MEDICARE, MEDICAID, SELFPAY ==
[2017-07-28 08:31] VITALS: RESP 16; TEMP 36.4; O2SAT 95; BMI 25.7
--- NOTE | 2017-07-28 08:42 | HMH.EDGENADL ---
ED Disposition Clinical Impression: Superficial thrombophlebitis Qualifiers: Superficial thrombophlebitis-Involved body area: upper extremity Laterality: right Qualified Code(s): I80.8 - Phlebitis and thrombophlebitis of other sites Disposition: Xfer SNF Condition on Discharge: Good Instructions: DI for Superficial Thrombophlebitis Additional Instructions: Elevation of arm. Warm compresses. Prescriptions: Naproxen Sodium [Naproxen 220mg Tab] 220 mg PO BID #14 tab Referrals: Adrien Mehta MD [Primary Care Provider] - - Critical Care Critical Care Time: No Attestation: On , the high probability of a clinically significant, sudden or life threatening deterioration of the following system(s) required my full and direct attention, intervention and personal management. The time I documented below is in addition to time spent performing reported procedures but includes the following listed in this critical care notation. Medical Decision Making - Sukhwinder Inquiry Pt receiving controlled substance: No Vital Signs: 07/28/17 08:31 07/28/17 11:15 07/28/17 13:07 Temperature 97.5 F L 98.3 F Temperature Source Axillary Oral Pulse Rate [Left Radial] 100 H 90 Respiratory Rate 16 20 20 Blood Pressure [Left Arm] 118/57 121/50 Blood Pressure Mean [Left Arm] 77 73 Blood Pressure Source [Left Arm] Automatic Cuff Automatic Cuff Blood Pressure Position [Left Arm] Sitting Sitting 02 Sat by Pulse Oximetry 95 97 94 L Oxygen Delivery Method Room Air Nasal Cannula Nasal Cannula Oxygen Flow Rate (LPM) 2 2 - Lab Data Lab Results 07/28/17 08:48: WBC 7.6, RBC 3.50 L, Hgb 11.3 L, Hct 33.7 L, MCV 96.3, MCH 32.2 H, MCHC 33.5, RDW 13.8, Plt Count 179, MPV 8.0, Neut % (Auto) 77.3, Lymph % (Auto) 15.7, [place] % (Auto) 5.1, Eos % (Auto) 1.6, Baso % (Auto) 0.3, Neut # (Auto) 5.9, Lymph # (Auto) 1.2, [place] # (Auto) 0.4, Eos # (Auto) 0.1, Baso # (Auto) 0.0 07/28/17 08:48: Sodium 144, Potassium 3.5, Chloride 107, Carbon Dioxide 30, Anion Gap 10.5, BUN 22 H, Creatinine 0.73, Estimated Creat Clear 59, Estimated GFR 80, Est GFR ( Amer) 97, Glucose 107 H, Calcium 9.3, Total Bilirubin 0.6, AST 59 H, ALT 19, Alkaline Phosphatase 75, Total Protein 6.4, Albumin 2.9 L, Globulin 3.5 H, Albumin/Globulin Ratio 0.8 L 07/28/17 08:48: Lactic Acid 0.9 Result diagrams: 07/28/17 08:48 07/28/17 08:48 - US Data US Images: Upper Extremity Findings Narrative: As per [facility] procedure, ultrasound report received from research laboratory technician: Superficial thrombophlebitis of basilic and cephalic veins. Negative for DVT. Medical Decision Narrative: Discharge summary from [facility] reviewed. Patient was admitted 07/23/17 through 07/26/17. Diagnosed with acute hypoxic respiratory failure, metabolic encephalopathy, syncope, seizure, urinary retention. Noted to be on Levaquin since D/C. General Adult HPI - General Chief complaint: PAIN Stated complaint: RIGHT ARM SWOLLEN Time Seen by Provider: 07/28/17 08:43 - History of Present Illness HPI narrative: Arrives by ambulance from long-term. States both of her arms are sore, right greater than left. States released from the hospital yesterday. Had IVs in her arms. Per ED Nurse: patient sent here for swollen R arm where IV infiltrated, concerned about a possible blood clot. - Related Data Home Medications Medication Instructions Recorded Confirmed acetaminophen 325 mg capsule 325 mg PO Q4-6H PRN 07/01/17 07/28/17 acyclovir 800 mg tablet 1 tab PO DIRECTED 30 Days #30 07/01/17 07/28/17 amlodipine 10 mg tablet 10 mg PO DAILY 30 Days #30 07/01/17 07/28/17 fluticasone 50 mcg/actuation nasal 1 spray INTRANASAL DIRECTED 30 07/01/17 07/28/17 spray,suspension Days #16 furosemide 40 mg tablet 1 tab PO DIRECTED 14 Days #14 07/01/17 07/28/17 lisinopril 10 mg tablet 20 mg PO DAILY 30 Days #60 07/01/17 07/28/17 omega-3 acid ethyl esters 1 gram 1 tab PO DIRECTED 30 Days #30 07/01
[2017-07-28 09:09] LABS: Basophils % 0.3 % (0.1-2.0); Eosinophils # 0.1 K/mm3 (0.0-0.4); Eosinophils % 1.6 % (0.1-12.0); Hematocrit 33.7 % (37.0-47.0); Hemoglobin 11.3 g/dL (12.2-16.2); Lymphocytes # 1.2 K/mm3 (0.7-4.5); Lymphocytes % 15.7 K/mm3 (10-50); Mean Corpuscular HGB Conc 33.5 g/dL (31.8-35.4); Mean Corpuscular Hemoglobin 32.2 pg (27.0-31.2); Mean Corpuscular Volume 96.3 fl (81-99); Monocytes # 0.4 K/mm3 (0.1-1.0); Monocytes % 5.1 % (1.7-9.3); Neutrophils # 5.9 K/mm3 (1.8-7.8); Neutrophils % 77.3 % (37.0-80.0); Platelet Count 179 K/mm3 (142-424); Red Cell Distribution Width 13.8 % (11.5-17.5); White Blood Count 7.6 K/mm3 (4.8-10.8)
--- NOTE | 2017-07-28 09:10 | NVE_ITS ---
Venous Exam IMPRESSIONS Evidence of acute superficial vein thrombosis involving thebasilic and cephalic veinsof the right upper extremity. Right upper extremity venous duplex. Doppler flow study including spectral analysis, color and more scale imaging. Location: Bedside. Patient status: Emergency department. CRITICAL FINDINGS - Reported to: Dr. Cristina - Read back and verified. - 07/28/2017 - 1:20 PM - SVT Tables: Venous flow and imaging: + + + + Location Flow properties Comments + + + + Right internal Normal phasicity; jugular spontaneous; compressible + + + + Right subclavian Normal phasicity; spontaneous; normal augmentation; compressible + + + + Right axillary Normal phasicity; spontaneous; normal augmentation; compressible + + + + Right brachial Normal phasicity; spontaneous; normal augmentation; compressible + + + + Right cephalic Absent; not The cephalic vein is spontaneous; no noncompressible throughout augmentation; the forearm. Above the noncompressible antecubital fossa the cephalic vein is compressible and demonstrates flow by color Doppler. + + + + Right basilic Diminished phasicity; The basilic vein not spontaneous; no demonstrates augmentation; noncompressibility from the noncompressible wristtojust before it terminates with the brachial vein. No flow is demonstrated in the basilic vein by color Doppler. + + + + Right radial Compressible + + + + Right ulnar Compressible + +-----
[2017-07-28 09:19] LABS: Alanine Aminotransferase 19 U/L (12-78); Albumin Level 2.9 gm/dL (3.4-5.0); Albumin/Globulin Ratio 0.8 (1.1-1.8); Alkaline Phosphatase 75 U/L (46-116); Anion Gap 10.5 mEq/L (5-15); Aspartate Amino Transferase 59 U/L (15-37); Bilirubin,Total 0.6 mg/dL (0.2-1.0); Blood Urea Nitrogen 22 mg/dL (7-18); Calcium 9.3 mg/dL (8.5-10.1); Carbon Dioxide 30 mmol/L (21.0-32.0); Chloride 107 mmol/L (98-107); Creatinine Clearance Estimated 59 mL/min (0-300); Creatinine,Serum 0.73 mg/dL (0.55-1.02); Estimated Glomerular Filt Rate 80 ml/min (>60); GFR (African American) 97 ML/MIN (>60); Globulin 3.5 gm/dl (1.3-3.2); Glucose 107 mg/dL (74-106); Potassium 3.5 mmoL/L (3.5-5.1); Sodium 144 mmol/L (136-145); Total Protein,Serum 6.4 gm/dL (6.4-8.2)
[2017-07-28 09:22] LABS: Lactic Acid 0.9 mmol/L (0.4-2.0)
[2017-07-28 11:15] VITALS: BP 118/57; PULSE 100; RESP 20; O2SAT 97
[2017-07-28 13:07] VITALS: BP 121/50; PULSE 90; RESP 20; TEMP 36.8; O2SAT 94
[2017-07-28 16:26] VITALS: BP 127/96; PULSE 75; RESP 18; TEMP 36.7; O2SAT 99
== END 2017-07-28 16:26 ==
PROVIDERS: Emergency Provider Emergency Medicine; Family Provider Emergency Medicine; PCP Emergency Medicine
DX: I80.8 Phlebitis and thrombophlebitis of other sites (principal); I10 Essential (primary) hypertension; Z88.2 Allergy status to sulfonamides; Z90.49 Acquired absence of other specified parts of digestive tract; Z96.641 Presence of right artificial hip joint; Z96.642 Presence of left artificial hip joint
CPT/HCPCS: 80053; 83605; 85025; 93971; 99283

== ENCOUNTER → 2017-08-05 09:12 | Outpatient (CLI) | payer MEDICARE, MEDICAID, SELFPAY ==
--- NOTE | 2017-08-05 09:16 | MR_ITS ---
MR head/brain wo/w con HISTORY: Seizures, encephalopathy, tremors ITS.REASON: encephalopathy ORDERING PHYSICIAN: Lorraine Enriquez MD PATIENT AGE: 66 years COMPARISON: 60 07/23/2017 TECHNIQUE: Standard multiplanar multiecho sequences are performed without and with gadolinium enhancement. FINDINGS: No midline shift, mass effect, intracranial hemorrhage, hydrocephalus, enhancing lesion, or acute infarction evident. There is mild generalized atrophy. 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 The cerebellopontine angles, cerebellum, and brainstem are unremarkable. No intra or extra-axial mass. No enhancing lesions. The hippocampal gyri are unremarkable. The pituitary and optic chiasm are unremarkable. There is focal thinning of the posterior aspect of the body of the corpus callosum. No cerebellar tonsillar ectopia. No mastoid effusion or sinus air-fluid level. IMPRESSION: 1. No acute intracranial findings. 2. Involutional changes of age with mild atrophy and periventricular ischemic gliotic change. 3. Focal thinning of the posterior body of the corpus callosum of questionable clinical significance
== END ==
PROVIDERS: Family Provider Emergency Medicine; PCP Emergency Medicine; Visit Provider Specialist
DX: G93.40 Encephalopathy, unspecified (principal); R25.1 Tremor, unspecified; G20 Parkinson's disease; I10 Essential (primary) hypertension
CPT/HCPCS: 70553; A9576

== ENCOUNTER 2017-11-29 17:26 | Inpatient (IN) ==
[2017-11-29 17:55] LABS: Basophils % 0.5 % (0.1-2.0); Eosinophils # 0.1 K/mm3 (0.0-0.4); Eosinophils % 2.5 % (0.1-12.0); Hematocrit 35.2 % (37.0-47.0); Hemoglobin 11.4 g/dL (12.2-16.2); Lymphocytes # 1.5 K/mm3 (0.7-4.5); Lymphocytes % 27.8 K/mm3 (10-50); Mean Corpuscular HGB Conc 32.4 g/dL (31.8-35.4); Mean Corpuscular Hemoglobin 29.5 pg (27.0-31.2); Mean Corpuscular Volume 91.2 fl (81-99); Mean Platelet Volume 7.5 fl (7.4-10.4); Monocytes # 0.2 K/mm3 (0.1-1.0); Monocytes % 4.4 % (1.7-9.3); Neutrophils # 3.4 K/mm3 (1.8-7.8); Neutrophils % 64.8 % (37.0-80.0); Platelet Count 264 K/mm3 (142-424); Red Blood Count 3.86 M/mm3 (4.20-5.40); Red Cell Distribution Width 15.3 % (11.5-17.5); White Blood Count 5.3 K/mm3 (4.8-10.8)
[2017-11-29 17:57] LABS: ABG HCO3 29.2 mmhg (22.0-26.0); ABG PCO2 41.6 mmhg (35.0-45.0); ABG PH 7.46 mmol/L (7.35-7.45); ABG TCO2 30.5 mmhg (23-27)
[2017-11-29 17:58] LABS: ABG Base Excess 5.4 mmol/L (-2.4-2.3); ABG Oxygen Saturation 96 % (90-100); Allen's Test positive
[2017-11-29 18:00] LABS: Alanine Aminotransferase 21 U/L (12-78); Albumin Level 3.1 gm/dL (3.4-5.0); Albumin/Globulin Ratio 0.8 (1.1-1.8); Alkaline Phosphatase 102 U/L (46-116); Anion Gap 10.1 mEq/L (5-15); Aspartate Amino Transferase 26 U/L (15-37); Bilirubin,Total 0.4 mg/dL (0.2-1.0); Blood Urea Nitrogen 11 mg/dL (7-18); Calcium 9.2 mg/dL (8.5-10.1); Carbon Dioxide 36 mmol/L (21.0-32.0); Chloride 101 mmol/L (98-107); Globulin 3.8 gm/dl (1.3-3.2); Glucose 91 mg/dL (74-106); Potassium 3.1 mmoL/L (3.5-5.1); Sodium 144 mmol/L (136-145); Total Protein,Serum 6.9 gm/dL (6.4-8.2)
[2017-11-29 18:21] LABS: Microscopic, Urine URINE MICROSCOPIC (MICROSCOPIC)
[2017-11-29 18:30] LABS: Appearance,Urine CLOUDY (Clear); Bilirubin,Urine Negative (Negative); Blood, Urine 3+ (Negative); Color,Urine YELLOW (Yellow); Glucose,Urine (UA) Negative (Negative); Ketones,Urine Negative (Negative); Leukocyte Esterase,Urine 2+ (Negative); Protein,Urine 1+ (Negative); Specific Gravity, Urine 1.025 (1.005-1.030)
[2017-11-29 18:37] LABS: Bacteria,Urine 2+ /lpf; RBC,Urine 20-50 #/hpf (0-3); WBC,Urine 50-100 #/hpf (0-3)
--- NOTE | 2017-11-29 18:42 | Emergency Department Note ---
ED Disposition Clinical Impression: Acute delirium, UTI (urinary tract infection) Disposition: Admitted as Observation Condition on Discharge: Fair Referrals: Adrien Mehta MD [Primary Care Provider] - - Critical Care Critical Care Time: No Attestation: On 11/29/17, the high probability of a clinically significant, sudden or life threatening deterioration of the following system(s) required my full and direct attention, intervention and personal management. The time I documented below is in addition to time spent performing reported procedures but includes the following listed in this critical care notation. Medical Decision Making - Medical Records Medical records reviewed: Yes: I reviewed the patient's medical records. - Sukhwinder Inquiry Pt receiving controlled substance: No Vital Signs: 11/29/17 17:24 Temperature 98.1 F Temperature Source Temporal Artery Scan Pulse Rate [Right Brachial] 75 Respiratory Rate 14 Blood Pressure [Right Arm] 156/84 Blood Pressure Mean [Right Arm] 108 Blood Pressure Source [Right Arm] Automatic Cuff Blood Pressure Position [Right Arm] Sitting 02 Sat by Pulse Oximetry 100 Oxygen Delivery Method Room Air - Lab Data Lab results reviewed: Yes: I reviewed the patient's lab results. Lab Results 11/29/17 17:32: WBC 5.3, RBC 3.86 L, Hgb 11.4 L, Hct 35.2 L, MCV 91.2, MCH 29.5 , MCHC 32.4, RDW 15.3, Plt Count 264, MPV 7.5, Neut % (Auto) 64.8, Lymph % (Auto ) 27.8, [place] % (Auto) 4.4, Eos % (Auto) 2.5, Baso % (Auto) 0.5, Neut # (Auto) 3.4, Lymph # (Auto) 1.5, [place] # (Auto) 0.2, Eos # (Auto) 0.1, Baso # (Auto) 0.0 11/29/17 17:32: Sodium 144, Potassium 3.1 L, Chloride 101, Carbon Dioxide 36 H, Anion Gap 10.1, BUN 11, Creatinine 0.62, Estimated Creat Clear 68, Estimated GFR 96, Est GFR ( Amer) 116, Glucose 91, Calcium 9.2, Total Bilirubin 0.4 , AST 26, ALT 21, Alkaline Phosphatase 102, Troponin I < 0.02, Total Protein 6.9 , Albumin 3.1 L, Globulin 3.8 H, Albumin/Globulin Ratio 0.8 L 11/29/17 17:32: Lactate 0.7 11/29/17 17:50: Specimen Source Right radial, O2 % 1 lpm, ABG pH 7.46 H, ABG pCO2 41.6, ABG pO2 89.0, ABG HCO3 29.2 H, ABG Total CO2 30.5 H, ABG O2 Saturation 96, ABG Base Excess 5.4 H, Gordon Test positive 11/29/17 18:18: Urine Color Yellow, Urine Appearance Cloudy, Urine pH 6.0, Ur Specific [place] 1.025, Urine Protein 1+, Urine Glucose (UA) Negative, Urine Ketones Negative, Urine Blood 3+, Urine Nitrate Positive, Urine Bilirubin Negative, Urine Urobilinogen 1.0, Ur Leukocyte Esterase 2+ A, Urine RBC 20-50, Urine WBC 50-100, Urine Bacteria 2+ Result diagrams: 11/29/17 17:32 11/29/17 17:32 Orders (Tests/Meds): ORDERS Category Date Time Status CT head/brain wo con Stat Cat Scan 11/29/17 17:47 Taken Chest XR AP view [XR chest AP] Stat Exams 11/29/17 17:47 Taken Blood Culture Stat Micro 11/29/17 17:32 Received Urine Culture Stat Micro 11/29/17 18:18 Received - Radiology Data #1 Image(s): Chest, Other (sternotomy wires, neg acute) Image Reviewed: Yes I reviewed the patient's radiology image Preliminary Findings: No Infiltrates Seen, Normal Lung Inflation Sukh, Normal Heart Size - CT Data CT Scan: Head Time Received: 19:[address] Reviewed: Yes: I have viewed the radiologist's interpretation Preliminary Findings: Normal/NAD - ECG Data Tracing #1 old bifascicular block old ST changes no acute changes SB 59 ECG initial impression date: 11/29/17 ECG initial impression time: 17:55 Normal Sinus Rhythm: Yes Ischemic changes: non-specific ST-T wave changes ECG compared to prior tracings: there are no significant changes - Physician Consults Physician Consulted: Dr. Cooney Time: 19:33 (admit obs; hold psych/neuro meds overnight, continue abx) Reason -: Admission, Pt condition - Reevaluation(s) Time: 19:34 (neurologically unchanged; no response to Narcan) General Adult HPI - General Chief complaint: Altered Mental Status Stated complaint: lethargy,unexplained Time Seen by Provider: 11/29/17 18:30 Mode of Arrival: EMS Source of Information: EMS, Medical Record Limitations: No Limitations Description of Symptoms (Recalled from ER Triage Doc. by RN): according to ar staff, pt is a hospice patient who became more lethargic this date and her. daughter wanted to evaluate her at er - History of Present Illness HPI narrative: Gradual lethargy per NH; Hospice pt but full code; limited information due to change in mental status. Onset (ago): day(s) Treatments prior to arrival: none - Related Data Home Medications Medication Instructions Recorded Confirmed acetaminophen 325 mg capsule 325 mg PO Q4-6H PRN 07/01/17 07/28/17 acyclovir 800 mg tablet 1 tab PO DIRECTED 30 Days #30 07/01/17 07/28/17 amlodipine 10 mg tablet 10 mg PO DAILY 30 Days #30 07/01/17 07/28/17 fluticasone 50 mcg/actuation nasal 1 spray INTRANASAL DIRECTED 30 07/01/17 spray,suspension Days #16 furosemide 40 mg tablet 1 tab PO DIRECTED 14 Days #14 07/01/17 07/28/17 lisinopril 10 mg tablet 20 mg PO DAILY 30 Days #60 07/01/17 07/28/17 omega-3 acid ethyl esters 1 gram 1 tab PO DIRECTED 30 Days #30 07/01/1707/28 capsule omeprazole 40 mg capsule,delayed 1 tab PO DIRECTED 30 Days #30 07/01/1707/28 release potassium chloride ER 10 mEq 1 tab PO DAILY 14 Days #14 07/01/17 07/28/17 tablet,extended release risperidone 1 mg tablet 1 % PO DIRECTED 30 Days #60 07/01/17 07/28/17 risperidone 3 mg tablet 1 tab PO DIRECTED 30 Days #30 07/01/17 07/28/17 sertraline 50 mg tablet 1 tab PO DIRECTED 30 Days #30 07/01/17 07/28/17 levETIRAcetam [Keppra] 750 mg PO BID 07/28/17 07/28/17 levoFLOXacin [Levofloxacin 750MG 1 tab PO DAILY 07/28/17 07/28/17 Tablet] Previous Rx's Medication Instructions Recorded Naproxen Sodium [Naproxen 220mg 220 mg PO BID #14 tab 07/28/17 Tab] Allergies Allergy/AdvReac Type Severity Reaction Status Date / Time egg [From EGGS (FOOD/DRUG)] Allergy Unknown I-RASH Verified 07/28/17 08:44 Penicillins [PENICILLINS] Allergy Unknown Verified 07/28/17 08:44 Sulfa (Sulfonamide Allergy Unknown Verified 07/28/17 08:44 Antibiotics) [SULFA (SULFONAMIDE ANTIBIOTICS)] trimethoprim [TRIMETHOPRIM] Allergy Unknown Verified 07/28/17 08:44 From EGGS (FOOD/DRUG) Allergy Unknown I-RASH Uncoded 07/01/17 09:29 [facility] History I have reviewed the patient's past medical history: Yes Medical History: Reports:: Seizures (schizoaffective; PD) Other Medical History: Reports: Other (schizoaffective) Laterality Cases: Bilateral: Total Hip Replacement Other Surgeries: Yes: Appendectomy, Cardiac Surgery, Hysterectomy-Total, Other Comment: gallbladder, aortic aneurysm - Social History Educational Level: Completed High School Smoking Status: Unknown if ever smoked Tobacco Type: cigarettes Alcohol Intake: never Substance Use Type: denies use Occupational Status: disabled Housing: shelter - Psychiatric History Expresses thoughts of harming self/others: None Suicide Plan Description: No Plan Family Hx:: Stroke, Hypertension ROS Obtained: Yes unobtainable due to mental condition - Constitutional Constitutional: Reports other (change in MS) Physical Exam - General General appearance: other (sleepy, opens eyes to verbal stimulation) - Head Head exam: atraumatic, normocephalic - Eye Eye exam: Present: PERRL, EOMI - ENT ENT exam: Present: mucous membranes dry - Neck Neck exam: Present: full ROM, trachea midline. Absent: meningismus - Chest Chest inspection: Present: normal inspection, symmetric chest wall rise. Absent : tenderness - Respiratory Respiratory exam: Present: normal lung sounds bilaterally. Absent: respiratory distress - Cardiovascular Cardiovascular exam: Present: regular rate, normal rhythm. Absent: JVD - Abdominal Exam Abdominal exam: Present: soft, normal bowel sounds. Absent: distention, tenderness, guarding - Extremities Exam Extremities exam: Present: normal inspection, full ROM, normal capillary refill. Absent: tenderness - Back Exam Back exam: Present: other (decubitus with clean bandage) - Neurological Exam Neurological exam: Present: CN II-XII intact, reflexes normal (somewhat sleepy, no unilateral findings noted, nonverbal but opens eyes to verbal stimulation, moves extremities very slowly) - Skin Skin exam: Present: warm, dry, pallor. Absent: mottled - Lymphatic Lymphatic Findings: no adenopathy
--- NOTE | 2017-11-29 21:09 | History & Physical Report ---
*Admission Date: 11/29/17 *Chief complaint: change in mental status *History of present illness: this elderly wf to or staff, pt is a hospice patient who became more lethargic this date and her. daughter wanted to evaluate her at er pt had dec po intake and with dec loc - pt unable to give sig hx [facility] History I have reviewed the patient's past medical history: Yes Medical History: Reports:: Seizures (schizoaffective; PD) Other Medical History: Reports: Other (schizoaffective) Laterality Cases: Bilateral: Total Hip Replacement Other Surgeries: Yes: Appendectomy, Cardiac Surgery, Hysterectomy-Total, Other - *Social History Educational Level: Completed High School Smoking Status: Unknown if ever smoked Tobacco Type: cigarettes Alcohol Intake: never Substance Use Type: denies use Occupational Status: disabled Housing: long-term - Psychiatric History Expresses thoughts of harming self/others: None Suicide Plan Description: No Plan *Family Hx:: Stroke, Hypertension Review of Systems - Review of Systems Review of systems:: unable to obtain, pertinent systems reviewed and negative unless documented below - Constitutional Reports weakness - Eyes Denies discharge - ENT Denies headache(s), Denies lip swelling - *Cardiovascular Denies chest pain - *Respiratory Denies cough - *Gastrointestinal Denies abdominal pain - *Genitourinary Denies blood in urine - *Musculoskeletal Denies joint pain - Integumentary/Breasts Denies rash - *Neurologic Reports behavioral changes, Reports weakness Meds Home Medications Medication Instructions Recorded Confirmed Type acetaminophen 325 mg capsule 325 mg PO Q4-6H PRN 07/01/17 11/29/17 History acyclovir 800 mg tablet 1 tab PO DIRECTED 30 Days #30 07/01/17 11/29/17 History amlodipine 10 mg tablet 10 mg PO DAILY 30 Days #30 07/01/17 11/29/17 History fluticasone 50 mcg/actuation nasal 1 spray INTRANASAL DIRECTED 30 07/01/17 History spray,suspension Days #16 furosemide 40 mg tablet 1 tab PO DIRECTED 14 Days #14 07/01/17 11/29/17 History lisinopril 10 mg tablet 20 mg PO DAILY 30 Days #60 07/01/17 11/29/17 History omega-3 acid ethyl esters 1 gram 1 tab PO DIRECTED 30 Days #30 07/01/1711/29 History capsule omeprazole 40 mg capsule,delayed 1 tab PO DIRECTED 30 Days #30 07/01/1711/29 History release potassium chloride ER 10 mEq 1 tab PO DAILY 14 Days #14 07/01/17 11/29/17 History tablet,extended release risperidone 1 mg tablet 1 g PO DIRECTED 30 Days #60 07/01/17 11/29/17 History risperidone 3 mg tablet 1 tab PO DIRECTED 30 Days #30 07/01/17 11/29/17 History sertraline 50 mg tablet 1 tab PO DIRECTED 30 Days #30 07/01/17 11/29/17 History levETIRAcetam [Keppra] 750 mg PO BID 07/28/17 11/29/17 History levoFLOXacin [Levofloxacin 750MG 1 tab PO DAILY 07/28/17 11/29/17 History Tablet] Acyclovir 800 mg PO DAILY 11/29/17 11/29/17 History Docusate Sodium [Docusate Sodium 100 mg PO BID 11/29/17 11/29/17 History 100mg Cap] Melatonin/Pyridoxine [Melatonin 3 1 each PO DAILYP PRN 11/29/17 11/29/17 History mg Tablet] Naproxen Sodium [Naproxen 220mg 220 mg PO BID 11/29/17 11/29/17 History Tab] Omeprazole [Omeprazole 40mg 40 mg PO DAILY 11/29/17 11/29/17 History Capsule] Sennosides/Docusate Sodium [Senna 8.6 each PO DAILY 11/29/17 11/29/17 History Laxative Tablet] Allergies Allergy/AdvReac Type Severity Reaction Status Date / Time egg [From EGGS (FOOD/DRUG)] Allergy Unknown I-RASH Verified 07/28/17 08:44 Penicillins [PENICILLINS] Allergy Unknown Verified 07/28/17 08:44 Sulfa (Sulfonamide Allergy Unknown Verified 07/28/17 08:44 Antibiotics) [SULFA (SULFONAMIDE ANTIBIOTICS)] trimethoprim [TRIMETHOPRIM] Allergy Unknown Verified 07/28/17 08:44 From EGGS (FOOD/DRUG) Allergy Unknown I-RASH Uncoded 07/01/17 09:29 Exam Vital signs and Labs for Last 24 Hours: Temp Pulse Resp BP Pulse Ox 0 F L 50 L 15 145/62 100 11/29/17 20:19 11/29/17 20:19 11/29/17 20:19 11/29/17 20:19 11/29/17 17:24 Laboratory Results - last 24 hr 11/29/17 17:32: WBC 5.3, RBC 3.86 L, Hgb 11.4 L, Hct 35.2 L, MCV 91.2, MCH 29.5 , MCHC 32.4, RDW 15.3, Plt Count 264, MPV 7.5, Neut % (Auto) 64.8, Lymph % (Auto ) 27.8, [place] % (Auto) 4.4, Eos % (Auto) 2.5, Baso % (Auto) 0.5, Neut # (Auto) 3.4, Lymph # (Auto) 1.5, [place] # (Auto) 0.2, Eos # (Auto) 0.1, Baso # (Auto) 0.0 11/29/17 17:32: Sodium 144, Potassium 3.1 L, Chloride 101, Carbon Dioxide 36 H, Anion Gap 10.1, BUN 11, Creatinine 0.62, Estimated Creat Clear 68, Estimated GFR 96, Est GFR ( Amer) 116, Glucose 91, Calcium 9.2, Total Bilirubin 0.4 , AST 26, ALT 21, Alkaline Phosphatase 102, Troponin I < 0.02, Total Protein 6.9 , Albumin 3.1 L, Globulin 3.8 H, Albumin/Globulin Ratio 0.8 L 11/29/17 17:32: Lactate 0.7 11/29/17 17:50: Specimen Source Right radial, O2 % 1 lpm, ABG pH 7.46 H, ABG pCO2 41.6, ABG pO2 89.0, ABG HCO3 29.2 H, ABG Total CO2 30.5 H, ABG O2 Saturation 96, ABG Base Excess 5.4 H, Gordon Test positive 11/29/17 18:18: Urine Color Yellow, Urine Appearance Cloudy, Urine pH 6.0, Ur Specific [place] 1.025, Urine Protein 1+, Urine Glucose (UA) Negative, Urine Ketones Negative, Urine Blood 3+, Urine Nitrate Positive, Urine Bilirubin Negative, Urine Urobilinogen 1.0, Ur Leukocyte Esterase 2+ A, Urine RBC 20-50, Urine WBC 50-100, Urine Bacteria 2+ I & O for Last 24 hours: Intake & Output 11/27/17 11/28/17 11/29/17 11/30/17 11:59 11:59 11:59 11:59 Weight 175 lb - Constitutional no acute distress, thin, chronically ill appearing - *Routine HEENT Exam Head: Present: normocephalic Eye: Present: EOMI, PERRL ENT: Present: mucous membranes dry - *Routine Neck Exam Absent: JVD - *Routine Respiratory Exam Present: decreased breath sounds - *Routine Cardiovascular Exam Present: RRR, murmur, S4 - *Routine Abdominal Exam Present: soft - *Routine Extremities Exam Present: edema. Absent: calf tenderness - *Routine Skin Exam Present: intact - *Routine Neurological Exam Present: altered mental status (no focal changes ) H&P: Result - Labs Labs: Short CBC 11/29/17 Range/Units 17:32 WBC 5.3 (4.8-10.8) K/mm3 Hgb 11.4 L (12.2-16.2) g/dL Hct 35.2 L (37.0-47.0) % Plt Count 264 (142-424) K/mm3 BMP 11/29/17 17:32 Sodium 144 Potassium 3.1 L Chloride 101 Carbon Dioxide 36 H BUN 11 Creatinine 0.62 Glucose 91 Calcium 9.2 Cardiac Enzymes 11/29/17 Range/Units 17:32 Troponin I < 0.02 (0.00-0.06) ng/ml Liver Function 11/29/17 Range/Units 17:32 Total Bilirubin 0.4 (0.2-1.0) mg/dL AST 26 (15-37) U/L ALT 21 (12-78) U/L Alkaline Phosphatase 102 (46-116) U/L Albumin 3.1 L (3.4-5.0) gm/dL Urine 11/29/17 Range/Units 18:18 Urine Color Yellow (Yellow) Urine Appearance Cloudy (Clear) Urine pH 6.0 (5.0-8.5) Ur Specific [place] 1.025 (1.005-1.030) Urine Protein 1+ (Negative) Urine Glucose (UA) Negative (Negative) Assessment and Plan (1) UTI (urinary tract infection) Current visit: Yes Status: Acute Category: Medical Code(s): N39.0 - Urinary tract infection, site not specified (2) Acute delirium Current visit: Yes Status: Acute Category: Medical Code(s): R41.0 - Disorientation, unspecified (3) Hypokalemia Current visit: Yes Status: Acute Category: Medical Code(s): E87.6 - Hypokalemia (4) Low body mass index (BMI) Current visit: Yes Status: Acute Category: Medical
[2017-11-30 06:44] LABS: Basophils % 0.4 % (0.1-2.0); Eosinophils # 0.1 K/mm3 (0.0-0.4); Eosinophils % 2.4 % (0.1-12.0); Hematocrit 29.4 % (37.0-47.0); Lymphocytes # 1.3 K/mm3 (0.7-4.5); Lymphocytes % 21.4 K/mm3 (10-50); Mean Corpuscular HGB Conc 33.1 g/dL (31.8-35.4); Mean Corpuscular Hemoglobin 29.9 pg (27.0-31.2); Mean Corpuscular Volume 90.6 fl (81-99); Mean Platelet Volume 7.5 fl (7.4-10.4); Monocytes # 0.2 K/mm3 (0.1-1.0); Monocytes % 3.7 % (1.7-9.3); Neutrophils # 4.3 K/mm3 (1.8-7.8); Neutrophils % 72.1 % (37.0-80.0); Platelet Count 226 K/mm3 (142-424); Red Blood Count 3.24 M/mm3 (4.20-5.40); Red Cell Distribution Width 15.3 % (11.5-17.5)
[2017-11-30 06:59] LABS: Hemoglobin 9.6 g/dL (12.2-16.2)
[2017-11-30 07:08] LABS: Albumin Level 2.5 gm/dL (3.4-5.0); Albumin/Globulin Ratio 0.9 (1.1-1.8); Anion Gap 5.9 mEq/L (5-15); Bilirubin,Total 0.4 mg/dL (0.2-1.0); Calcium 8.3 mg/dL (8.5-10.1); Globulin 2.8 gm/dl (1.3-3.2); Total Protein,Serum 5.3 gm/dL (6.4-8.2)
[2017-11-30 07:13] LABS: Potassium 2.9 mmoL/L (3.5-5.1)
--- NOTE | 2017-11-30 08:54 | Progress Note ---
Internal Medicine - PN: Subj *Date: 12/01/17 *Time: 09:50 Interval history: pt with some improvement this am - more alert Exam Vital signs and Labs for Last 24 Hours: Temp Pulse Resp BP Pulse Ox 98.9 F 64 18 138/49 98 11/30/17 07:31 11/30/17 07:31 11/30/17 07:31 11/30/17 07:31 11/30/17 07:31 Laboratory Results - last 24 hr 11/29/17 17:32: WBC 5.3, RBC 3.86 L, Hgb 11.4 L, Hct 35.2 L, MCV 91.2, MCH 29.5 , MCHC 32.4, RDW 15.3, Plt Count 264, MPV 7.5, Neut % (Auto) 64.8, Lymph % (Auto ) 27.8, [place] % (Auto) 4.4, Eos % (Auto) 2.5, Baso % (Auto) 0.5, Neut # (Auto) 3.4, Lymph # (Auto) 1.5, [place] # (Auto) 0.2, Eos # (Auto) 0.1, Baso # (Auto) 0.0 11/29/17 17:32: Sodium 144, Potassium 3.1 L, Chloride 101, Carbon Dioxide 36 H, Anion Gap 10.1, BUN 11, Creatinine 0.62, Estimated Creat Clear 68, Estimated GFR 96, Est GFR ( Amer) 116, Glucose 91, Calcium 9.2, Total Bilirubin 0.4 , AST 26, ALT 21, Alkaline Phosphatase 102, Troponin I < 0.02, Total Protein 6.9 , Albumin 3.1 L, Globulin 3.8 H, Albumin/Globulin Ratio 0.8 L 11/29/17 17:32: Lactate 0.7 11/29/17 17:50: Specimen Source Right radial, O2 % 1 lpm, ABG pH 7.46 H, ABG pCO2 41.6, ABG pO2 89.0, ABG HCO3 29.2 H, ABG Total CO2 30.5 H, ABG O2 Saturation 96, ABG Base Excess 5.4 H, Gordon Test positive 11/29/17 18:18: Urine Color Yellow, Urine Appearance Cloudy, Urine pH 6.0, Ur Specific [place] 1.025, Urine Protein 1+, Urine Glucose (UA) Negative, Urine Ketones Negative, Urine Blood 3+, Urine Nitrate Positive, Urine Bilirubin Negative, Urine Urobilinogen 1.0, Ur Leukocyte Esterase 2+ A, Urine RBC 20-50, Urine WBC 50-100, Urine Bacteria 2+ 11/30/17 05:50: WBC 6.0, RBC 3.24 L, Hgb 9.6 L D, Hct 29.4 L, MCV 90.6, MCH 29.9 , MCHC 33.1, RDW 15.3, Plt Count 226, MPV 7.5, Neut % (Auto) 72.1, Lymph % (Auto ) 21.4, [place] % (Auto) 3.7, Eos % (Auto) 2.4, Baso % (Auto) 0.4, Neut # (Auto) 4.3, Lymph # (Auto) 1.3, [place] # (Auto) 0.2, Eos # (Auto) 0.1, Baso # (Auto) 0.0 11/30/17 05:50: Sodium 144, Potassium 2.9 L*, Chloride 106, Carbon Dioxide 35 H , Anion Gap 5.9, BUN 9, Creatinine 0.47 L D, Estimated Creat Clear 44, Estimated GFR 132, Est GFR ( Amer) 160 D, Glucose 97, Calcium 8.3 L, Total Bilirubin 0.4, AST 18 D, ALT 16, Alkaline Phosphatase 84, Total Protein 5.3 L, Albumin 2.5 L D, Globulin 2.8, Albumin/Globulin Ratio 0.9 L I & O for Last 24 hours: Intake & Output 11/27/17 11/28/17 11/29/17 11/30/17 11:59 11:59 11:59 11:59 Output Total 300 / 300 Balance -300 / -300 Weight 113 lb 9 oz Microbiology Reports for the Last 24 Hours: Microbiology 11/29/17 18:18 Urine,Clean Catch Urine Culture - Preliminary - Constitutional no acute distress - *Routine HEENT Exam Head: Present: normocephalic Eye: Present: EOMI, PERRL ENT: Present: mucous membranes dry - *Routine Neck Exam Absent: JVD - *Routine Respiratory Exam Present: decreased breath sounds - *Routine Cardiovascular Exam Present: RRR, murmur - *Routine Abdominal Exam Present: soft - *Routine Extremities Exam Present: edema - *Routine Skin Exam Present: intact - *Routine Neurological Exam Present: altered mental status Assessment and Plan (1) UTI (urinary tract infection) Current visit: Yes Status: Acute Category: Medical Code(s): N39.0 - Urinary tract infection, site not specified (2) Acute delirium Current visit: Yes Status: Acute Category: Medical Code(s): R41.0 - Disorientation, unspecified (3) Hypokalemia Current visit: Yes Status: Acute Category: Medical Code(s): E87.6 - Hypokalemia (4) Low body mass index (BMI) Current visit: Yes Status: Acute Category: Medical
--- NOTE | 2017-11-30 10:14 | Pharmacy Consult Notes ---
[facility] Pharmacy VTE Monitoring - Patient Demographics Admission date: 11/29/17 Report Date: 11/30/17 Time: 10:14 Allergies/Adverse Reactions: Patient Allergies egg [From EGGS (FOOD/DRUG)] Allergy (Unknown, Verified 07/28/17 08:44) I-RASH Penicillins [PENICILLINS] Allergy (Unknown, Verified 07/28/17 08:44) Sulfa (Sulfonamide Antibiotics) [SULFA (SULFONAMIDE ANTIBIOTICS)] Allergy ( Unknown, Verified 07/28/17 08:44) trimethoprim [TRIMETHOPRIM] Allergy (Unknown, Verified 07/28/17 08:44) From EGGS (FOOD/DRUG) Allergy (Unknown, Uncoded 07/01/17 09:29) I-RASH Height: 1.57 m Weight: 51.511 kg Patient Problems: Current Active Problems Acute delirium (Acute) UTI (urinary tract infection) (Acute) UTI (urinary tract infection) (Acute) Acute delirium (Acute) Hypokalemia (Acute) Low body mass index (BMI) (Acute) - VTE Risk Labs: VTE Related Lab Results Hgb 9.6 g/dL (12.2-16.2) L D 11/30/17 05:50 Hct 29.4 % (37.0-47.0) L 11/30/17 05:50 Plt Count 226 K/mm3 (142-424) 11/30/17 05:50 BUN 9 mg/dL (7-18) 11/30/17 05:50 Creatinine 0.47 mg/dL (0.55-1.02) L D 11/30/17 05:50 Estimated Creat Clear 44 mL/min (0-300) 11/30/17 05:50 VTE Risk Level: Low Risk - Prophylaxis VTE Prophylaxis Ordered?: Yes Types of VTE Prophylaxis: TEDS Knee High Location of Applied Device: Bilateral Lower Extremeties
--- NOTE | 2017-12-01 10:24 | Progress Note ---
Internal Medicine - PN: Subj *Date: 12/01/17 *Time: 10:21 Interval history: pt more awake and has gram neg rods on urine culture - discussed skin care with staff Exam Vital signs and Labs for Last 24 Hours: Temp Pulse Resp BP Pulse Ox 99.1 F 89 18 137/60 97 12/01/17 08:00 12/01/17 08:00 12/01/17 08:00 12/01/17 08:00 12/01/17 08:00 Laboratory Results - last 24 hr 11/29/17 18:18: Urine Color Yellow, Urine Appearance Cloudy, Urine pH 6.0, Ur Specific Thurman 1.025, Urine Protein 1+, Urine Glucose (UA) Negative, Urine Ketones Negative, Urine Blood 3+, Urine Nitrate Positive, Urine Bilirubin Negative, Urine Urobilinogen 1.0, Ur Leukocyte Esterase 2+ A, Urine RBC 20-50, Urine WBC 50-100, Urine Bacteria 2+ I & O for Last 24 hours: Intake & Output 11/28/17 11/29/17 11/30/17 12/01/17 11:59 11:59 11:59 11:59 Intake Total 1622 / 1622 Output Total 300 / 300 100 / 100 Balance -300 / -300 1522 / 1522 Weight 113 lb 9 oz Microbiology Reports for the Last 24 Hours: Microbiology 11/29/17 18:18 Urine,Clean Catch Urine Culture - Preliminary Gram Negative Rods - Constitutional no acute distress - *Routine HEENT Exam Head: Present: normocephalic Eye: Present: EOMI, PERRL ENT: Present: mucous membranes dry - *Routine Neck Exam Absent: JVD - *Routine Respiratory Exam Present: decreased breath sounds. Absent: respiratory distress - *Routine Cardiovascular Exam Present: RRR, murmur, S4 - *Routine Abdominal Exam Present: soft - *Routine Extremities Exam Absent: calf tenderness - *Routine Skin Exam Comments: has decubitus prob stage 3 on buttock area - *Routine Neurological Exam old changes Assessment and Plan (1) UTI (urinary tract infection) Current visit: Yes Status: Acute Category: Medical Code(s): N39.0 - Urinary tract infection, site not specified (2) Acute delirium Current visit: Yes Status: Acute Category: Medical Code(s): R41.0 - Disorientation, unspecified (3) Hypokalemia Current visit: Yes Status: Acute Category: Medical Code(s): E87.6 - Hypokalemia (4) Low body mass index (BMI) Current visit: Yes Status: Acute Category: Medical (5) Hypokalemia Current visit: Yes Status: Acute Category: Medical Code(s): E87.6 - Hypokalemia (6) Decubitus skin ulcer Current visit: Yes Status: Acute Qualifiers: Pressure injury stage: stage 3 Laterality: unspecified laterality Category: Medical Code(s): L89.90 - Pressure ulcer of unspecified site, unspecified stage (7) Anemia Current visit: Yes Status: Acute Qualifiers: Anemia type: unspecified type Qualified Code(s): D64.9 - Anemia, unspecified Category: Medical Code(s): D64.9 - Anemia, unspecified
[2017-12-01 10:44] LABS: Anion Gap 9.4 mEq/L (5-15); Calcium 8.7 mg/dL (8.5-10.1); Potassium 3.4 mmoL/L (3.5-5.1)
[2017-12-01 10:49] LABS: Hematocrit 29.2 % (37.0-47.0); Hemoglobin 9.6 g/dL (12.2-16.2); Lymphocytes % 18.9 K/mm3 (10-50); Mean Corpuscular Hemoglobin 30.1 pg (27.0-31.2); Monocytes % 4.3 % (1.7-9.3); Neutrophils % 74.7 % (37.0-80.0); Platelet Count 216 K/mm3 (142-424); Red Blood Count 3.21 M/mm3 (4.20-5.40); Red Cell Distribution Width 15.4 % (11.5-17.5); White Blood Count 5.5 K/mm3 (4.8-10.8)
[2017-12-01 10:50] LABS: Basophils % 0.5 % (0.1-2.0); Eosinophils # 0.1 K/mm3 (0.0-0.4); Eosinophils % 1.7 % (0.1-12.0); Monocytes # 0.2 K/mm3 (0.1-1.0); Neutrophils # 4.1 K/mm3 (1.8-7.8)
[2017-12-02 07:37] LABS: Basophils % 0.4 % (0.1-2.0); Eosinophils # 0.2 K/mm3 (0.0-0.4); Eosinophils % 2.1 % (0.1-12.0); Lymphocytes # 1.1 K/mm3 (0.7-4.5); Lymphocytes % 12.3 K/mm3 (10-50); Mean Corpuscular HGB Conc 33.5 g/dL (31.8-35.4); Mean Corpuscular Hemoglobin 30.4 pg (27.0-31.2); Mean Corpuscular Volume 90.7 fl (81-99); Mean Platelet Volume 7.2 fl (7.4-10.4); Monocytes # 0.3 K/mm3 (0.1-1.0); Monocytes % 3.5 % (1.7-9.3); Neutrophils # 7.3 K/mm3 (1.8-7.8); Neutrophils % 81.8 % (37.0-80.0); Platelet Count 251 K/mm3 (142-424); Red Cell Distribution Width 15.2 % (11.5-17.5)
[2017-12-02 07:44] LABS: Hematocrit 31.9 % (37.0-47.0); Hemoglobin 10.7 g/dL (12.2-16.2)
[2017-12-02 08:09] LABS: Anion Gap 10.5 mEq/L (5-15); Calcium 8.7 mg/dL (8.5-10.1); Potassium 3.5 mmoL/L (3.5-5.1)
--- NOTE | 2017-12-02 12:15 | Discharge Summary ---
General - General Admission date:: 11/29/17 Discharge date: 12/02/17 HPI HPI: this elderly wf to [facility] staff, pt is a hospice patient who became more lethargic this date and her. daughter wanted to evaluate her at er pt had dec po intake and with dec loc - pt unable to give sig hx Hospital Course Hospital Course: pt has improved with ivf and abx and was more alert and tolerating diet with temp controlled- she has pseudomonas a. uti and will need levofloxin x 10 days total -labs were stable and will benefit from return to [facility] Objective Vital signs: Temp Pulse Resp BP Pulse Ox 98.5 F 116 H 20 146/58 99 12/02/17 09:43 12/02/17 07:42 12/02/17 07:42 12/02/17 07:42 12/02/17 07:42 no acute distress - *Routine HEENT Exam Head: Present: normocephalic Eye: Present: PERRL ENT: Present: mucous membranes dry - *Routine Neck Exam Absent: JVD - *Routine Respiratory Exam Present: decreased breath sounds. Absent: respiratory distress - *Routine Cardiovascular Exam Present: RRR, murmur - *Routine Abdominal Exam Present: soft - *Routine Extremities Exam Absent: calf tenderness - *Routine Skin Exam Comments: unchanged - *Routine Neurological Exam no acute focal changes has residual changes Results Labs on day of discharge: Labs from last 24 hours 12/02/17 12/02/17 12/01/17 07:25 07:25 16:48 WBC 9.0 D RBC 3.50 L Hgb 10.7 L D Hct 31.9 L MCV 90.7 MCH 30.4 MCHC 33.5 RDW 15.2 Plt Count 251 MPV 7.2 L Neut % (Auto) 81.8 H Lymph % (Auto) 12.3 [place] % (Auto) 3.5 Eos % (Auto) 2.1 Baso % (Auto) 0.4 Neut # (Auto) 7.3 Lymph # (Auto) 1.1 [place] # (Auto) 0.3 Eos # (Auto) 0.2 Baso # (Auto) 0.0 Sodium 143 Potassium 3.5 Chloride 106 Carbon Dioxide 30 Anion Gap 10.5 BUN 9 Creatinine 0.53 L Estimated Creat Clear 44 Estimated GFR 115 Est GFR ( Amer) 139 Glucose 130 H POC Glucose 115 H Calcium 8.7 Preliminary micro results at discharge 11/29/17 17:32 Blood Culture - Preliminary Blood NO GROWTH AFTER 48 HOURS 11/29/17 17:32 Blood Culture - Preliminary Blood NO GROWTH AFTER 48 HOURS DS: Diagnosis - Discharge Diagnosis (1) UTI (urinary tract infection) Status: Acute (2) Acute delirium Status: Acute (3) Hypokalemia Status: Acute (4) Low body mass index (BMI) Status: Acute (5) Hypokalemia Status: Acute (6) Decubitus skin ulcer Status: Acute (7) Anemia Status: Acute (8) Pseudomonas aeruginosa infection Status: Acute Discharge Plan - Patient Discharge Instructions ACTIVITY: Continue current activity DIET: continue same diet - Follow up Plan Disposition: [facility] Home Medications: Home Medications Medication Instructions Recorded Confirmed Type acetaminophen 325 mg capsule 650 mg PO Q6HP PRN 07/01/17 11/30/17 History amlodipine 10 mg tablet 10 mg PO HS 30 Days #30 07/01/17 11/30/17 History furosemide 40 mg tablet 40 mg PO DAILY 14 Days #14 07/01/17 11/30/17 History potassium chloride ER 10 mEq 10 meq PO DAILY 14 Days #14 07/01/17 11/30/17 History tablet,extended release risperidone 1 mg tablet 1 mg PO BID 30 Days #60 07/01/17 11/30/17 History risperidone 3 mg tablet 3 mg PO HS 30 Days #30 07/01/17 11/30/17 History sertraline 50 mg tablet 50 mg PO DAILY 30 Days #30 07/01/17 11/30/17 History levETIRAcetam [Keppra] 750 mg PO BID 07/28/17 11/29/17 History Acyclovir 800 mg PO DAILY 11/29/17 11/29/17 History Docusate Sodium [Docusate Sodium 100 mg PO BID 11/29/17 11/29/17 History 100mg Cap] Melatonin/Pyridoxine [Melatonin 3 6 mg PO HS 11/29/17 11/30/17 History mg Tablet] Omeprazole [Omeprazole 40mg 40 mg PO DAILY 11/29/17 11/29/17 History Capsule] Aspirin [Aspirin 81mg chewable 81 mg PO DAILY 11/30/17 11/30/17 History tab] Baclofen 20 mg PO Q8HP PRN 11/30/17 11/30/17 History Hydrocodone/Acetaminophen 1 each PO Q4HP PRN 11/30/17 11/30/17 History [Hydrocodone-Acetamin 5-325 mg] LORazepam [Ativan] 0.5 mg PO Q12H PRN 11/30/17 11/30/17 History Lactulose [Lactulose 10gm/15ml 30 ml PO DAILYP PRN 11/30/17 11/30/17 History Oral Soln] Lisinopril [Lisinopril 20mg Tab] 20 mg PO DAILY 11/30/17 11/30/17 History Polyethylene Glycol 3350 [Miralax 17 gm PO DAILYP PRN 11/30/17 11/30/17 History 17gm Packet] Sennosides [Senna] 8.6 mg PO DAILY 11/30/17 11/30/17 History Prescriptions/Medication Reconciliation: New levoFLOXacin [Levaquin 500mg tab] 500 mg PO DAILY #7 tab Continue amlodipine 10 mg tablet 10 mg PO HS 30 Days #30 Acyclovir 800 mg PO DAILY No Action acetaminophen 325 mg capsule 650 mg PO Q6HP PRN PRN Reason: PAIN/FEVER potassium chloride ER 10 mEq tablet,extended release 10 meq PO DAILY 14 Days #14 furosemide 40 mg tablet 40 mg PO DAILY 14 Days #14 sertraline 50 mg tablet 50 mg PO DAILY 30 Days #30 risperidone 3 mg tablet 3 mg PO HS 30 Days #30 risperidone 1 mg tablet 1 mg PO BID 30 Days #60 levETIRAcetam [Keppra] 750 mg PO BID Melatonin/Pyridoxine [Melatonin 3 mg Tablet] 6 mg PO HS Sennosides [Senna] 8.6 mg PO DAILY Polyethylene Glycol 3350 [Miralax 17gm Packet] 17 gm PO DAILYP PRN PRN Reason: Constipation Aspirin [Aspirin 81mg chewable tab] 81 mg PO DAILY LORazepam [Ativan] 0.5 mg PO Q12H PRN PRN Reason: Anxiety Hydrocodone/Acetaminophen [Hydrocodone-Acetamin 5-325 mg] 1 each PO Q4HP PRN PRN Reason: PAIN Baclofen 20 mg PO Q8HP PRN PRN Reason: MUSCLE SPASMS Omeprazole [Omeprazole 40mg Capsule] 40 mg PO DAILY Docusate Sodium [Docusate Sodium 100mg Cap] 100 mg PO BID Lisinopril [Lisinopril 20mg Tab] 20 mg PO DAILY Lactulose [Lactulose 10gm/15ml Oral Soln] 30 ml PO DAILYP PRN PRN Reason: Constipation
--- NOTE | 2017-12-03 10:01 | Progress Note ---
Internal Medicine - PN: Subj *Date: 12/03/17 *Time: 09:59 Interval history: d/c cancelled as pt has temp of 102 rectally- pt denied any pain and rocio diet Exam Vital signs and Labs for Last 24 Hours: Temp Pulse Resp BP Pulse Ox 102.7 F H 120 H 24 148/67 97 12/03/17 09:06 12/03/17 08:00 12/03/17 08:00 12/03/17 08:00 12/03/17 08:00 I & O for Last 24 hours: Intake & Output 11/30/17 12/01/17 12/02/17 12/03/17 11:59 11:59 11:59 11:59 Intake Total 1622 / 1622 2553 / 2553 1080 / 1080 Output Total 300 / 300 100 / 100 425 / 425 100 / 100 Balance -300 / -300 1522 / 1522 2128 / 2128 980 / 980 Weight 113 lb 9 oz 113 lb 8.997 oz Microbiology Reports for the Last 24 Hours: Microbiology 11/29/17 18:18 Urine,Clean Catch Urine Culture - Final Pseudomonas aeruginosa - Constitutional no acute distress - *Routine HEENT Exam Head: Present: normocephalic Eye: Present: EOMI, PERRL ENT: Present: mucous membranes dry - *Routine Neck Exam Absent: JVD, meningismus - *Routine Respiratory Exam Present: decreased breath sounds - *Routine Cardiovascular Exam Present: RRR, murmur - *Routine Abdominal Exam Present: soft - *Routine Extremities Exam Absent: calf tenderness - *Routine Skin Exam Present: dry - *Routine Neurological Exam Present: alert - Routine Psychiatric Exam Present: unable to assess Assessment and Plan (1) UTI (urinary tract infection) Current visit: Yes Status: Acute Category: Medical Code(s): N39.0 - Urinary tract infection, site not specified (2) Acute delirium Current visit: Yes Status: Acute Category: Medical Code(s): R41.0 - Disorientation, unspecified (3) Hypokalemia Current visit: Yes Status: Acute Category: Medical Code(s): E87.6 - Hypokalemia (4) Low body mass index (BMI) Current visit: Yes Status: Acute Category: Medical (5) Hypokalemia Current visit: Yes Status: Acute Category: Medical Code(s): E87.6 - Hypokalemia (6) Decubitus skin ulcer Current visit: Yes Status: Acute Qualifiers: Pressure injury stage: stage 3 Laterality: unspecified laterality Category: Medical Code(s): L89.90 - Pressure ulcer of unspecified site, unspecified stage (7) Anemia Current visit: Yes Status: Acute Qualifiers: Anemia type: unspecified type Qualified Code(s): D64.9 - Anemia, unspecified Category: Medical Code(s): D64.9 - Anemia, unspecified (8) Pseudomonas aeruginosa infection Current visit: Yes Status: Acute Category: Medical Code(s): A49.8 - Other bacterial infections of unspecified site
[2017-12-03 10:51] LABS: Basophils % 0.2 % (0.1-2.0); Eosinophils # 0.1 K/mm3 (0.0-0.4); Eosinophils % 0.5 % (0.1-12.0); Hematocrit 33.5 % (37.0-47.0); Hemoglobin 10.7 g/dL (12.2-16.2); Lymphocytes # 1.3 K/mm3 (0.7-4.5); Lymphocytes % 13.4 K/mm3 (10-50); Mean Corpuscular HGB Conc 31.9 g/dL (31.8-35.4); Mean Corpuscular Hemoglobin 29.4 pg (27.0-31.2); Mean Corpuscular Volume 92.2 fl (81-99); Mean Platelet Volume 7.2 fl (7.4-10.4); Monocytes # 0.4 K/mm3 (0.1-1.0); Monocytes % 4.5 % (1.7-9.3); Neutrophils # 7.8 K/mm3 (1.8-7.8); Neutrophils % 81.5 % (37.0-80.0); Platelet Count 296 K/mm3 (142-424); Red Blood Count 3.64 M/mm3 (4.20-5.40); Red Cell Distribution Width 15.5 % (11.5-17.5); White Blood Count 9.6 K/mm3 (4.8-10.8)
[2017-12-03 10:57] LABS: Anion Gap 13.6 mEq/L (5-15); Calcium 9.1 mg/dL (8.5-10.1); Potassium 3.6 mmoL/L (3.5-5.1)
--- NOTE | 2017-12-04 08:09 | Progress Note ---
Internal Medicine - PN: Subj *Date: 12/04/17 *Time: 08:06 Interval history: pt still with sl fever but eating breakfast -cxr ok and decubitus stage 4 but stable Exam Vital signs and Labs for Last 24 Hours: Temp Pulse Resp BP Pulse Ox 100.7 F H 79 18 131/54 96 12/04/17 07:35 12/04/17 07:35 12/04/17 07:35 12/04/17 07:35 12/04/17 07:35 Laboratory Results - last 24 hr 12/03/17 10:40: WBC 9.6, RBC 3.64 L, Hgb 10.7 L, Hct 33.5 L, MCV 92.2, MCH 29.4 , MCHC 31.9, RDW 15.5, Plt Count 296, MPV 7.2 L, Neut % (Auto) 81.5 H, Lymph % ( Auto) 13.4, [place] % (Auto) 4.5, Eos % (Auto) 0.5, Baso % (Auto) 0.2, Neut # (Auto ) 7.8, Lymph # (Auto) 1.3, [place] # (Auto) 0.4, Eos # (Auto) 0.1, Baso # (Auto) 0.0 12/03/17 10:40: Sodium 148 H, Potassium 3.6, Chloride 108 H, Carbon Dioxide 30, Anion Gap 13.6, BUN 15 D, Creatinine 0.74 D, Estimated Creat Clear 44, Estimated GFR 78, Est GFR ( Amer) 95 D, Glucose 116 H, Calcium 9.1 I & O for Last 24 hours: Intake & Output 12/01/17 12/02/17 12/03/17 12/04/17 11:59 11:59 11:59 11:59 Intake Total 1622 / 1622 2553 / 2553 1080 / 1080 1560 / 1560 Output Total 100 / 100 425 / 425 100 / 100 625 / 625 Balance 1522 / 1522 2128 / 2128 980 / 980 935 / 935 Weight 113 lb 8.997 oz - Constitutional no acute distress - *Routine HEENT Exam Head: Present: normocephalic Eye: Present: EOMI, PERRL ENT: Present: mucous membranes dry - *Routine Neck Exam Present: supple - *Routine Respiratory Exam Present: decreased breath sounds - *Routine Cardiovascular Exam Present: RRR, murmur - *Routine Abdominal Exam Present: soft - *Routine Extremities Exam Absent: edema - *Routine Skin Exam Present: intact - *Routine Neurological Exam Present: alert, oriented X3, CN II-XII intact - Routine Psychiatric Exam Present: normal affect Assessment and Plan (1) UTI (urinary tract infection) Current visit: Yes Status: Acute Category: Medical Code(s): N39.0 - Urinary tract infection, site not specified (2) Acute delirium Current visit: Yes Status: Acute Category: Medical Code(s): R41.0 - Disorientation, unspecified (3) Hypokalemia Current visit: Yes Status: Acute Category: Medical Code(s): E87.6 - Hypokalemia (4) Low body mass index (BMI) Current visit: Yes Status: Acute Category: Medical (5) Hypokalemia Current visit: Yes Status: Acute Category: Medical Code(s): E87.6 - Hypokalemia (6) Decubitus skin ulcer Current visit: Yes Status: Acute Qualifiers: Pressure injury stage: stage 3 Laterality: unspecified laterality Category: Medical Code(s): L89.90 - Pressure ulcer of unspecified site, unspecified stage (7) Anemia Current visit: Yes Status: Acute Qualifiers: Anemia type: unspecified type Qualified Code(s): D64.9 - Anemia, unspecified Category: Medical Code(s): D64.9 - Anemia, unspecified (8) Pseudomonas aeruginosa infection Current visit: Yes Status: Acute Category: Medical Code(s): A49.8 - Other bacterial infections of unspecified site (9) CVA, old, hemiparesis Current visit: Yes Status: Acute Category: Medical Code(s): I69.359 - Hemiplegia and hemiparesis following cerebral infarction affecting unspecified side
--- NOTE | 2017-12-04 09:23 | Pharmacy Consult Notes ---
- Pharmacy Consult Date: 12/04/17 Time: 09:08 Referring provider: DR. COBB Reason for Consult:: TOBRAMYCIN DOSING Allergies and ADEs:: Allergies Allergy/AdvReac Type Severity Reaction Status Date / Time egg [From EGGS (FOOD/DRUG)] Allergy Unknown I-RASH Verified 07/28/17 08:44 Penicillins [PENICILLINS] Allergy Unknown Verified 07/28/17 08:44 Sulfa (Sulfonamide Allergy Unknown Verified 07/28/17 08:44 Antibiotics) [SULFA (SULFONAMIDE ANTIBIOTICS)] trimethoprim [TRIMETHOPRIM] Allergy Unknown Verified 07/28/17 08:44 From EGGS (FOOD/DRUG) Allergy Unknown I-RASH Uncoded 07/01/17 09:29 Home Medications:: Home Medications Medication Instructions Recorded Confirmed Type acetaminophen 325 mg capsule 650 mg PO Q6HP PRN 07/01/17 11/30/17 History amlodipine 10 mg tablet 10 mg PO HS 30 Days #30 07/01/17 11/30/17 History risperidone 1 mg tablet 1 mg PO BID 30 Days #60 07/01/17 11/30/17 History sertraline 50 mg tablet 50 mg PO DAILY 30 Days #30 07/01/17 11/30/17 History levETIRAcetam [Keppra] 750 mg PO BID 07/28/17 11/29/17 History Acyclovir 800 mg PO DAILY 11/29/17 11/29/17 History Docusate Sodium [Docusate Sodium 100 mg PO BID 11/29/17 11/29/17 History 100mg Cap] Melatonin/Pyridoxine [Melatonin 3 6 mg PO HS 11/29/17 11/30/17 History mg Tablet] Omeprazole [Omeprazole 40mg 40 mg PO DAILY 11/29/17 11/29/17 History Capsule] Aspirin [Aspirin 81mg chewable 81 mg PO DAILY 11/30/17 11/30/17 History tab] Baclofen 20 mg PO Q8HP PRN 11/30/17 11/30/17 History LORazepam [Ativan] 0.5 mg PO Q12H PRN 11/30/17 11/30/17 History Lactulose [Lactulose 10gm/15ml 30 ml PO DAILYP PRN 11/30/17 11/30/17 History Oral Soln] Lisinopril [Lisinopril 20mg Tab] 20 mg PO DAILY 11/30/17 11/30/17 History Polyethylene Glycol 3350 [Miralax 17 gm PO DAILYP PRN 11/30/17 11/30/17 History 17gm Packet] Sennosides [Senna] 8.6 mg PO DAILY 11/30/17 11/30/17 History Height: 1.57 m Weight: 51.511 kg Laboratory Results:: Laboratory Results - last 24 hr 12/03/17 10:40: WBC 9.6, RBC 3.64 L, Hgb 10.7 L, Hct 33.5 L, MCV 92.2, MCH 29.4 , MCHC 31.9, RDW 15.5, Plt Count 296, MPV 7.2 L, Neut % (Auto) 81.5 H, Lymph % ( Auto) 13.4, [place] % (Auto) 4.5, Eos % (Auto) 0.5, Baso % (Auto) 0.2, Neut # (Auto ) 7.8, Lymph # (Auto) 1.3, [place] # (Auto) 0.4, Eos # (Auto) 0.1, Baso # (Auto) 0.0 12/03/17 10:40: Sodium 148 H, Potassium 3.6, Chloride 108 H, Carbon Dioxide 30, Anion Gap 13.6, BUN 15 D, Creatinine 0.74 D, Estimated Creat Clear 44, Estimated GFR 78, Est GFR ( Amer) 95 D, Glucose 116 H, Calcium 9.1 Medical History: Reports:: Seizures (schizoaffective; PD) Assessment and Plan (1) UTI (urinary tract infection) Current visit: Yes Status: Acute Category: Medical Code(s): N39.0 - Urinary tract infection, site not specified (2) Acute delirium Current visit: Yes Status: Acute Category: Medical Code(s): R41.0 - Disorientation, unspecified (3) Hypokalemia Current visit: Yes Status: Acute Category: Medical Code(s): E87.6 - Hypokalemia (4) Low body mass index (BMI) Current visit: Yes Status: Acute Category: Medical (5) Hypokalemia Current visit: Yes Status: Acute Category: Medical Code(s): E87.6 - Hypokalemia (6) Decubitus skin ulcer Current visit: Yes Status: Acute Qualifiers: Pressure injury stage: stage 3 Laterality: unspecified laterality Category: Medical Code(s): L89.90 - Pressure ulcer of unspecified site, unspecified stage (7) Anemia Current visit: Yes Status: Acute Qualifiers: Anemia type: unspecified type Qualified Code(s): D64.9 - Anemia, unspecified Category: Medical Code(s): D64.9 - Anemia, unspecified (8) Pseudomonas aeruginosa infection Current visit: Yes Status: Acute Category: Medical Code(s): A49.8 - Other bacterial infections of unspecified site (9) CVA, old, hemiparesis Current visit: Yes Status: Acute Category: Medical Code(s): I69.359 - Hemiplegia and hemiparesis following cerebral infarction affecting unspecified side - Assessment and plan all Dx Assessment and Plan for all problems:: BASED ON PATIENT FACTORS, RECOMMEND TOBRAMYCIN 240 MG IV Q24H. WILL OBTAIN LEVELS AT 4 AND 12 HOURS POST-INFUSION. PHARMACY WILL FOLLOW DAILY AND ADJUST APPROPRIATE.
[2017-12-05 06:46] LABS: Basophils % 0.3 % (0.1-2.0); Eosinophils # 0.2 K/mm3 (0.0-0.4); Eosinophils % 2.6 % (0.1-12.0); Hematocrit 26.3 % (37.0-47.0); Hemoglobin 8.5 g/dL (12.2-16.2); Lymphocytes # 1.5 K/mm3 (0.7-4.5); Lymphocytes % 23.8 K/mm3 (10-50); Mean Corpuscular HGB Conc 32.4 g/dL (31.8-35.4); Mean Corpuscular Hemoglobin 30.3 pg (27.0-31.2); Mean Corpuscular Volume 93.3 fl (81-99); Mean Platelet Volume 7.3 fl (7.4-10.4); Monocytes # 0.2 K/mm3 (0.1-1.0); Monocytes % 3.9 % (1.7-9.3); Neutrophils # 4.3 K/mm3 (1.8-7.8); Neutrophils % 69.3 % (37.0-80.0); Platelet Count 222 K/mm3 (142-424); Red Blood Count 2.82 M/mm3 (4.20-5.40); Red Cell Distribution Width 15.3 % (11.5-17.5); White Blood Count 6.2 K/mm3 (4.8-10.8)
[2017-12-05 06:53] LABS: Anion Gap 10.2 mEq/L (5-15); Calcium 8.4 mg/dL (8.5-10.1); Potassium 3.2 mmoL/L (3.5-5.1)
--- NOTE | 2017-12-05 08:00 | Progress Note ---
Internal Medicine - PN: Subj *Date: 12/05/17 *Time: 07:59 Exam Vital signs and Labs for Last 24 Hours: Temp Pulse Resp BP Pulse Ox 100.5 F H 73 18 119/51 97 12/05/17 04:00 12/05/17 04:00 12/05/17 04:00 12/05/17 04:00 12/05/17 04:00 Laboratory Results - last 24 hr 12/04/17 14:20: Random Tobramycin 4.4 12/04/17 22:00: Random Tobramycin 1.5 12/05/17 06:15: WBC 6.2 D, RBC 2.82 L, Hgb 8.5 L, Hct 26.3 L, MCV 93.3, MCH 30.3, MCHC 32.4, RDW 15.3, Plt Count 222, MPV 7.3 L, Neut % (Auto) 69.3, Lymph % (Auto) 23.8, [place] % (Auto) 3.9, Eos % (Auto) 2.6, Baso % (Auto) 0.3, Neut # ( Auto) 4.3, Lymph # (Auto) 1.5, [place] # (Auto) 0.2, Eos # (Auto) 0.2, Baso # (Auto ) 0.0 12/05/17 06:15: Sodium 145, Potassium 3.2 L, Chloride 108 H, Carbon Dioxide 30, Anion Gap 10.2, BUN 14, Creatinine 0.54 L D, Estimated Creat Clear 46, Estimated GFR 113, Est GFR ( Amer) 136 D, Glucose 102, Calcium 8.4 L I & O for Last 24 hours: Intake & Output 12/02/17 12/03/17 12/04/17 12/05/17 23:59 23:59 23:59 23:59 Intake Total 1622 / 1622 1520 / 1520 1362 / 1362 Output Total 325 / 325 425 / 425 400 / 400 100 / 100 Balance 1297 / 1297 1095 / 1095 962 / 962 -100 / -100 Weight 51.511 kg 53.722 kg Microbiology Reports for the Last 24 Hours: Microbiology 11/29/17 17:32 Blood Blood Culture - Final NO GROWTH AFTER 5 DAYS 11/29/17 17:32 Blood Blood Culture - Final NO GROWTH AFTER 5 DAYS Assessment and Plan (1) UTI (urinary tract infection) Current visit: Yes Status: Acute Category: Medical Code(s): N39.0 - Urinary tract infection, site not specified (2) Acute delirium Current visit: Yes Status: Acute Category: Medical Code(s): R41.0 - Disorientation, unspecified (3) Hypokalemia Current visit: Yes Status: Acute Category: Medical Code(s): E87.6 - Hypokalemia (4) Low body mass index (BMI) Current visit: Yes Status: Acute Category: Medical (5) Hypokalemia Current visit: Yes Status: Acute Category: Medical Code(s): E87.6 - Hypokalemia (6) Decubitus skin ulcer Current visit: Yes Status: Acute Qualifiers: Pressure injury stage: stage 3 Laterality: unspecified laterality Category: Medical Code(s): L89.90 - Pressure ulcer of unspecified site, unspecified stage (7) Anemia Current visit: Yes Status: Acute Qualifiers: Anemia type: unspecified type Qualified Code(s): D64.9 - Anemia, unspecified Category: Medical Code(s): D64.9 - Anemia, unspecified (8) Pseudomonas aeruginosa infection Current visit: Yes Status: Acute Category: Medical Code(s): A49.8 - Other bacterial infections of unspecified site (9) CVA, old, hemiparesis Current visit: Yes Status: Acute Category: Medical Code(s): I69.359 - Hemiplegia and hemiparesis following cerebral infarction affecting unspecified side The patient's infection will respond to the chosen ABx?: Yes Is the patient receiving the right drug, dose, and route?: Yes Could a more targeted ABx be ordered?: No
--- NOTE | 2017-12-05 09:24 | Progress Note ---
Internal Medicine - PN: Subj *Date: 12/05/17 *Time: 09:22 Exam Vital signs and Labs for Last 24 Hours: Temp Pulse Resp BP Pulse Ox 97.8 F 79 22 133/62 98 12/05/17 08:00 12/05/17 08:00 12/05/17 08:00 12/05/17 08:00 12/05/17 08:00 Laboratory Results - last 24 hr 12/04/17 14:20: Random Tobramycin 4.4 12/04/17 22:00: Random Tobramycin 1.5 12/05/17 06:15: WBC 6.2 D, RBC 2.82 L, Hgb 8.5 L, Hct 26.3 L, MCV 93.3, MCH 30.3, MCHC 32.4, RDW 15.3, Plt Count 222, MPV 7.3 L, Neut % (Auto) 69.3, Lymph % (Auto) 23.8, [place] % (Auto) 3.9, Eos % (Auto) 2.6, Baso % (Auto) 0.3, Neut # ( Auto) 4.3, Lymph # (Auto) 1.5, [place] # (Auto) 0.2, Eos # (Auto) 0.2, Baso # (Auto ) 0.0 12/05/17 06:15: Sodium 145, Potassium 3.2 L, Chloride 108 H, Carbon Dioxide 30, Anion Gap 10.2, BUN 14, Creatinine 0.54 L D, Estimated Creat Clear 46, Estimated GFR 113, Est GFR ( Amer) 136 D, Glucose 102, Calcium 8.4 L I & O for Last 24 hours: Intake & Output 12/02/17 12/03/17 12/04/17 12/05/17 11:59 11:59 11:59 11:59 Intake Total 2553 / 2553 1180 / 1180 1660 / 1660 742 / 742 Output Total 425 / 425 100 / 100 625 / 625 300 / 300 Balance 2128 / 2128 1080 / 1080 1035 / 1035 442 / 442 Weight 113 lb 8.997 oz 113 lb 8.997 oz 118 lb 7 oz Microbiology Reports for the Last 24 Hours: Microbiology 11/29/17 17:32 Blood Blood Culture - Final NO GROWTH AFTER 5 DAYS 11/29/17 17:32 Blood Blood Culture - Final NO GROWTH AFTER 5 DAYS - Constitutional no acute distress, thin, chronically ill appearing - *Routine HEENT Exam Head: Present: normocephalic Eye: Present: PERRL ENT: Present: mucous membranes moist - *Routine Respiratory Exam Present: CTA bilaterally - *Routine Cardiovascular Exam Present: RRR - *Routine Abdominal Exam Present: soft, normoactive bowel sounds - *Routine Extremities Exam Present: full ROM - *Routine Skin Exam Comments: ulcer to buttocks stage 4 - *Routine Neurological Exam Present: alert - Routine Psychiatric Exam Present: normal affect Assessment and Plan (1) UTI (urinary tract infection) Current visit: Yes Status: Acute Category: Medical Code(s): N39.0 - Urinary tract infection, site not specified (2) Acute delirium Current visit: Yes Status: Acute Category: Medical Code(s): R41.0 - Disorientation, unspecified (3) Hypokalemia Current visit: Yes Status: Acute Category: Medical Code(s): E87.6 - Hypokalemia (4) Low body mass index (BMI) Current visit: Yes Status: Acute Category: Medical (5) Hypokalemia Current visit: Yes Status: Acute Category: Medical Code(s): E87.6 - Hypokalemia (6) Decubitus skin ulcer Current visit: Yes Status: Acute Qualifiers: Pressure injury stage: stage 3 Laterality: unspecified laterality Category: Medical Code(s): L89.90 - Pressure ulcer of unspecified site, unspecified stage (7) Anemia Current visit: Yes Status: Acute Qualifiers: Anemia type: unspecified type Qualified Code(s): D64.9 - Anemia, unspecified Category: Medical Code(s): D64.9 - Anemia, unspecified (8) Pseudomonas aeruginosa infection Current visit: Yes Status: Acute Category: Medical Code(s): A49.8 - Other bacterial infections of unspecified site (9) CVA, old, hemiparesis Current visit: Yes Status: Acute Category: Medical Code(s): I69.359 - Hemiplegia and hemiparesis following cerebral infarction affecting unspecified side - Assessment and plan all Dx Assessment and Plan for all problems:: rounded with beverly,all orders per beverly repeat blood cx for fever
--- NOTE | 2017-12-05 09:26 | Progress Note ---
Internal Medicine - PN: Subj *Date: 12/05/17 *Time: 09:26 Exam Vital signs and Labs for Last 24 Hours: Temp Pulse Resp BP Pulse Ox 97.8 F 79 22 133/62 98 12/05/17 08:00 12/05/17 08:00 12/05/17 08:00 12/05/17 08:00 12/05/17 08:00 Laboratory Results - last 24 hr 12/04/17 14:20: Random Tobramycin 4.4 12/04/17 22:00: Random Tobramycin 1.5 12/05/17 06:15: WBC 6.2 D, RBC 2.82 L, Hgb 8.5 L, Hct 26.3 L, MCV 93.3, MCH 30.3, MCHC 32.4, RDW 15.3, Plt Count 222, MPV 7.3 L, Neut % (Auto) 69.3, Lymph % (Auto) 23.8, [place] % (Auto) 3.9, Eos % (Auto) 2.6, Baso % (Auto) 0.3, Neut # ( Auto) 4.3, Lymph # (Auto) 1.5, [place] # (Auto) 0.2, Eos # (Auto) 0.2, Baso # (Auto ) 0.0 12/05/17 06:15: Sodium 145, Potassium 3.2 L, Chloride 108 H, Carbon Dioxide 30, Anion Gap 10.2, BUN 14, Creatinine 0.54 L D, Estimated Creat Clear 46, Estimated GFR 113, Est GFR ( Amer) 136 D, Glucose 102, Calcium 8.4 L I & O for Last 24 hours: Intake & Output 12/02/17 12/03/17 12/04/17 12/05/17 23:59 23:59 23:59 23:59 Intake Total 1622 / 1622 1520 / 1520 1462 / 1462 Output Total 325 / 325 425 / 425 400 / 400 100 / 100 Balance 1297 / 1297 1095 / 1095 1062 / 1062 -100 / -100 Weight 51.511 kg 53.722 kg Microbiology Reports for the Last 24 Hours: Microbiology 11/29/17 17:32 Blood Blood Culture - Final NO GROWTH AFTER 5 DAYS 11/29/17 17:32 Blood Blood Culture - Final NO GROWTH AFTER 5 DAYS Assessment and Plan (1) UTI (urinary tract infection) Current visit: Yes Status: Acute Category: Medical Code(s): N39.0 - Urinary tract infection, site not specified (2) Acute delirium Current visit: Yes Status: Acute Category: Medical Code(s): R41.0 - Disorientation, unspecified (3) Hypokalemia Current visit: Yes Status: Acute Category: Medical Code(s): E87.6 - Hypokalemia (4) Low body mass index (BMI) Current visit: Yes Status: Acute Category: Medical (5) Hypokalemia Current visit: Yes Status: Acute Category: Medical Code(s): E87.6 - Hypokalemia (6) Decubitus skin ulcer Current visit: Yes Status: Acute Qualifiers: Pressure injury stage: stage 3 Laterality: unspecified laterality Category: Medical Code(s): L89.90 - Pressure ulcer of unspecified site, unspecified stage (7) Anemia Current visit: Yes Status: Acute Qualifiers: Anemia type: unspecified type Qualified Code(s): D64.9 - Anemia, unspecified Category: Medical Code(s): D64.9 - Anemia, unspecified (8) Pseudomonas aeruginosa infection Current visit: Yes Status: Acute Category: Medical Code(s): A49.8 - Other bacterial infections of unspecified site (9) CVA, old, hemiparesis Current visit: Yes Status: Acute Category: Medical Code(s): I69.359 - Hemiplegia and hemiparesis following cerebral infarction affecting unspecified side The patient's infection will respond to the chosen ABx?: Yes Is the patient receiving the right drug, dose, and route?: Yes Could a more targeted ABx be ordered?: No
--- NOTE | 2017-12-05 14:39 | Pharmacy Consult Notes ---
- Pharmacy Consult Date: 12/05/17 Time: 14:35 Referring provider: DR. COBB Reason for Consult:: TOBRAMYCIN LEVELS Allergies and ADEs:: Allergies Allergy/AdvReac Type Severity Reaction Status Date / Time egg [From EGGS (FOOD/DRUG)] Allergy Unknown I-RASH Verified 07/28/17 08:44 Penicillins [PENICILLINS] Allergy Unknown Verified 07/28/17 08:44 Sulfa (Sulfonamide Allergy Unknown Verified 07/28/17 08:44 Antibiotics) [SULFA (SULFONAMIDE ANTIBIOTICS)] trimethoprim [TRIMETHOPRIM] Allergy Unknown Verified 07/28/17 08:44 From EGGS (FOOD/DRUG) Allergy Unknown I-RASH Uncoded 07/01/17 09:29 Home Medications:: Home Medications Medication Instructions Recorded Confirmed Type acetaminophen 325 mg capsule 650 mg PO Q6HP PRN 07/01/17 11/30/17 History amlodipine 10 mg tablet 10 mg PO HS 30 Days #30 07/01/17 11/30/17 History risperidone 1 mg tablet 1 mg PO BID 30 Days #60 07/01/17 11/30/17 History sertraline 50 mg tablet 50 mg PO DAILY 30 Days #30 07/01/17 11/30/17 History levETIRAcetam [Keppra] 750 mg PO BID 07/28/17 11/29/17 History Acyclovir 800 mg PO DAILY 11/29/17 11/29/17 History Docusate Sodium [Docusate Sodium 100 mg PO BID 11/29/17 11/29/17 History 100mg Cap] Melatonin/Pyridoxine [Melatonin 3 6 mg PO HS 11/29/17 11/30/17 History mg Tablet] Omeprazole [Omeprazole 40mg 40 mg PO DAILY 11/29/17 11/29/17 History Capsule] Aspirin [Aspirin 81mg chewable 81 mg PO DAILY 11/30/17 11/30/17 History tab] Baclofen 20 mg PO Q8HP PRN 11/30/17 11/30/17 History LORazepam [Ativan] 0.5 mg PO Q12H PRN 11/30/17 11/30/17 History Lactulose [Lactulose 10gm/15ml 30 ml PO DAILYP PRN 11/30/17 11/30/17 History Oral Soln] Lisinopril [Lisinopril 20mg Tab] 20 mg PO DAILY 11/30/17 11/30/17 History Polyethylene Glycol 3350 [Miralax 17 gm PO DAILYP PRN 11/30/17 11/30/17 History 17gm Packet] Sennosides [Senna] 8.6 mg PO DAILY 11/30/17 11/30/17 History Height: 1.57 m Weight: 53.722 kg Laboratory Results:: Laboratory Results - last 24 hr 12/04/17 14:20: Random Tobramycin 4.4 12/04/17 22:00: Random Tobramycin 1.5 12/05/17 06:15: WBC 6.2 D, RBC 2.82 L, Hgb 8.5 L, Hct 26.3 L, MCV 93.3, MCH 30.3, MCHC 32.4, RDW 15.3, Plt Count 222, MPV 7.3 L, Neut % (Auto) 69.3, Lymph % (Auto) 23.8, [place] % (Auto) 3.9, Eos % (Auto) 2.6, Baso % (Auto) 0.3, Neut # ( Auto) 4.3, Lymph # (Auto) 1.5, [place] # (Auto) 0.2, Eos # (Auto) 0.2, Baso # (Auto ) 0.0 12/05/17 06:15: Sodium 145, Potassium 3.2 L, Chloride 108 H, Carbon Dioxide 30, Anion Gap 10.2, BUN 14, Creatinine 0.54 L D, Estimated Creat Clear 46, Estimated GFR 113, Est GFR ( Amer) 136 D, Glucose 102, Calcium 8.4 L Medical History: Reports:: Seizures (schizoaffective; PD) Assessment and Plan (1) UTI (urinary tract infection) Current visit: Yes Status: Acute Category: Medical Code(s): N39.0 - Urinary tract infection, site not specified (2) Acute delirium Current visit: Yes Status: Acute Category: Medical Code(s): R41.0 - Disorientation, unspecified (3) Hypokalemia Current visit: Yes Status: Acute Category: Medical Code(s): E87.6 - Hypokalemia (4) Low body mass index (BMI) Current visit: Yes Status: Acute Category: Medical (5) Hypokalemia Current visit: Yes Status: Acute Category: Medical Code(s): E87.6 - Hypokalemia (6) Decubitus skin ulcer Current visit: Yes Status: Acute Qualifiers: Pressure injury stage: stage 3 Laterality: unspecified laterality Category: Medical Code(s): L89.90 - Pressure ulcer of unspecified site, unspecified stage (7) Anemia Current visit: Yes Status: Acute Qualifiers: Anemia type: unspecified type Qualified Code(s): D64.9 - Anemia, unspecified Category: Medical Code(s): D64.9 - Anemia, unspecified (8) Pseudomonas aeruginosa infection Current visit: Yes Status: Acute Category: Medical Code(s): A49.8 - Other bacterial infections of unspecified site (9) CVA, old, hemiparesis Current visit: Yes Status: Acute Category: Medical Code(s): I69.359 - Hemiplegia and hemiparesis following cerebral infarction affecting unspecified side - Assessment and plan all Dx Assessment and Plan for all problems:: TOBRAMYCIN LEVELS 4-HOUR POST-INFUSION: 4.4 CALCULATED PEAK: 6.6 MCG/ML 12-HOUR POST-INFUSION: 1.5 CALCULATED TROUGH: 0.30 MCG/ML BASED ON LEVELS AND PATIENT FACTORS, RECOMMEND INCREASING DOSE TO TOBRAMYCIN 360 MG IV Q24H. PHARMACY WILL CONTINUE TO FOLLOW DAILY AND ADJUST APPROPRIATE.
--- NOTE | 2017-12-06 09:06 | Progress Note ---
Internal Medicine - PN: Subj *Date: 12/07/17 *Time: 08:16 Interval history: pt doing better and no fever tonight Exam Vital signs and Labs for Last 24 Hours: Temp Pulse Resp BP Pulse Ox 100.4 F H 65 20 130/58 95 12/06/17 07:57 12/06/17 07:57 12/06/17 07:57 12/06/17 07:57 12/06/17 07:57 I & O for Last 24 hours: Intake & Output 12/03/17 12/04/17 12/05/17 12/06/17 11:59 11:59 11:59 11:59 Intake Total 1180 / 1180 1660 / 1660 742 / 742 2180 / 2180 Output Total 100 / 100 625 / 625 300 / 300 200 / 200 Balance 1080 / 1080 1035 / 1035 442 / 442 1979 / 1979 Weight 113 lb 8.997 oz 118 lb 7 oz 118 lb 7 oz - Constitutional no acute distress - *Routine HEENT Exam Head: Present: normocephalic Eye: Present: EOMI, PERRL ENT: Absent: mucous membranes dry - *Routine Neck Exam Present: supple - *Routine Respiratory Exam Present: decreased breath sounds - *Routine Cardiovascular Exam Present: RRR, murmur - *Routine Abdominal Exam Present: soft - *Routine Extremities Exam Absent: calf tenderness - *Routine Skin Exam Present: intact - *Routine Neurological Exam no focal changes - Routine Psychiatric Exam Present: normal affect Assessment and Plan (1) UTI (urinary tract infection) Current visit: Yes Status: Acute Category: Medical Code(s): N39.0 - Urinary tract infection, site not specified (2) Acute delirium Current visit: Yes Status: Acute Category: Medical Code(s): R41.0 - Disorientation, unspecified (3) Hypokalemia Current visit: Yes Status: Acute Category: Medical Code(s): E87.6 - Hypokalemia (4) Low body mass index (BMI) Current visit: Yes Status: Acute Category: Medical (5) Hypokalemia Current visit: Yes Status: Acute Category: Medical Code(s): E87.6 - Hypokalemia (6) Decubitus skin ulcer Current visit: Yes Status: Acute Qualifiers: Pressure injury stage: stage 3 Laterality: unspecified laterality Category: Medical Code(s): L89.90 - Pressure ulcer of unspecified site, unspecified stage (7) Anemia Current visit: Yes Status: Acute Qualifiers: Anemia type: unspecified type Qualified Code(s): D64.9 - Anemia, unspecified Category: Medical Code(s): D64.9 - Anemia, unspecified (8) Pseudomonas aeruginosa infection Current visit: Yes Status: Acute Category: Medical Code(s): A49.8 - Other bacterial infections of unspecified site (9) CVA, old, hemiparesis Current visit: Yes Status: Acute Category: Medical Code(s): I69.359 - Hemiplegia and hemiparesis following cerebral infarction affecting unspecified side
[2017-12-07 09:55] LABS: Basophils % 0.2 % (0.1-2.0); Eosinophils # 0.1 K/mm3 (0.0-0.4); Eosinophils % 1.3 % (0.1-12.0); Hematocrit 30.7 % (37.0-47.0); Lymphocytes # 1.1 K/mm3 (0.7-4.5); Lymphocytes % 13.4 K/mm3 (10-50); Mean Corpuscular HGB Conc 32.5 g/dL (31.8-35.4); Mean Corpuscular Hemoglobin 30.2 pg (27.0-31.2); Mean Corpuscular Volume 92.8 fl (81-99); Mean Platelet Volume 7.3 fl (7.4-10.4); Monocytes # 0.3 K/mm3 (0.1-1.0); Monocytes % 3.8 % (1.7-9.3); Neutrophils # 6.5 K/mm3 (1.8-7.8); Neutrophils % 81.4 % (37.0-80.0); Platelet Count 282 K/mm3 (142-424); Red Blood Count 3.31 M/mm3 (4.20-5.40)
[2017-12-07 10:03] LABS: Anion Gap 9.2 mEq/L (5-15); Calcium 8.7 mg/dL (8.5-10.1); Potassium 3.2 mmoL/L (3.5-5.1)
--- NOTE | 2017-12-07 10:49 | Progress Note ---
Internal Medicine - PN: Subj *Date: 12/07/17 *Time: 10:47 Exam Vital signs and Labs for Last 24 Hours: Temp Pulse Resp BP Pulse Ox 98.6 F 68 20 138/54 98 12/07/17 08:00 12/07/17 08:00 12/07/17 08:00 12/07/17 08:00 12/07/17 08:00 Laboratory Results - last 24 hr 12/06/17 23:00: Random Tobramycin 1.7 12/07/17 09:38: WBC 8.0 D, RBC 3.31 L, Hgb 10.0 L, Hct 30.7 L, MCV 92.8, MCH 30.2, MCHC 32.5, RDW 15.0, Plt Count 282 D, MPV 7.3 L, Neut % (Auto) 81.4 H, Lymph % (Auto) 13.4, [place] % (Auto) 3.8, Eos % (Auto) 1.3, Baso % (Auto) 0.2, Neut # (Auto) 6.5, Lymph # (Auto) 1.1, [place] # (Auto) 0.3, Eos # (Auto) 0.1, Baso # (Auto) 0.0 12/07/17 09:38: Sodium 144, Potassium 3.2 L, Chloride 105, Carbon Dioxide 33 H, Anion Gap 9.2, BUN 11, Creatinine 0.49 L, Estimated Creat Clear 46, Estimated GFR 126, Est GFR ( Amer) 152, Glucose 122 H, Calcium 8.7 I & O for Last 24 hours: Intake & Output 12/04/17 12/05/17 12/06/17 12/07/17 11:59 11:59 11:59 11:59 Intake Total 1660 / 1660 842 / 842 2280 / 2280 4075 / 4075 Output Total 625 / 625 300 / 300 200 / 200 550 / 550 Balance 1035 / 1035 542 / 542 2080 / 2080 3525 / 3525 Weight 113 lb 8.997 oz 118 lb 7 oz 118 lb 7 oz Microbiology Reports for the Last 24 Hours: Microbiology 12/05/17 10:33 Blood Blood Culture - Preliminary NO GROWTH AFTER 48 HOURS 12/05/17 10:33 Blood Blood Culture - Preliminary NO GROWTH AFTER 48 HOURS - Constitutional no acute distress - *Routine HEENT Exam Head: Present: normocephalic Eye: Present: PERRL ENT: Present: mucous membranes moist - *Routine Neck Exam Present: full ROM - *Routine Respiratory Exam Present: CTA bilaterally - *Routine Cardiovascular Exam Present: RRR, murmur - *Routine Abdominal Exam Present: soft, normoactive bowel sounds - *Routine Exam Comments: King draining at bedside - *Routine Extremities Exam Comments: Old CVA - *Routine Skin Exam Comments: Ulcer to coccyx dressing in place - *Routine Neurological Exam Present: alert - Routine Psychiatric Exam Present: normal affect Assessment and Plan (1) UTI (urinary tract infection) Current visit: Yes Status: Acute Category: Medical Code(s): N39.0 - Urinary tract infection, site not specified (2) Acute delirium Current visit: Yes Status: Acute Category: Medical Code(s): R41.0 - Disorientation, unspecified (3) Hypokalemia Current visit: Yes Status: Acute Category: Medical Code(s): E87.6 - Hypokalemia (4) Low body mass index (BMI) Current visit: Yes Status: Acute Category: Medical (5) Hypokalemia Current visit: Yes Status: Acute Category: Medical Code(s): E87.6 - Hypokalemia (6) Decubitus skin ulcer Current visit: Yes Status: Acute Qualifiers: Pressure injury stage: stage 3 Laterality: unspecified laterality Category: Medical Code(s): L89.90 - Pressure ulcer of unspecified site, unspecified stage (7) Anemia Current visit: Yes Status: Acute Qualifiers: Anemia type: unspecified type Qualified Code(s): D64.9 - Anemia, unspecified Category: Medical Code(s): D64.9 - Anemia, unspecified (8) Pseudomonas aeruginosa infection Current visit: Yes Status: Acute Category: Medical Code(s): A49.8 - Other bacterial infections of unspecified site (9) CVA, old, hemiparesis Current visit: Yes Status: Acute Category: Medical Code(s): I69.359 - Hemiplegia and hemiparesis following cerebral infarction affecting unspecified side - Assessment and plan all Dx Assessment and Plan for all problems:: Rounded with Dr. Mehta all orders per Janine
--- NOTE | 2017-12-07 14:01 | Pharmacy Consult Notes ---
- Pharmacy Consult Date: 12/07/17 Time: 14:00 Referring provider: DR. COBB Reason for Consult:: TOBRAMYCIN LEVEL Allergies and ADEs:: Allergies Allergy/AdvReac Type Severity Reaction Status Date / Time egg [From EGGS (FOOD/DRUG)] Allergy Unknown I-RASH Verified 07/28/17 08:44 Penicillins [PENICILLINS] Allergy Unknown Verified 07/28/17 08:44 Sulfa (Sulfonamide Allergy Unknown Verified 07/28/17 08:44 Antibiotics) [SULFA (SULFONAMIDE ANTIBIOTICS)] trimethoprim [TRIMETHOPRIM] Allergy Unknown Verified 07/28/17 08:44 From EGGS (FOOD/DRUG) Allergy Unknown I-RASH Uncoded 07/01/17 09:29 Home Medications:: Home Medications Medication Instructions Recorded Confirmed Type acetaminophen 325 mg capsule 650 mg PO Q6HP PRN 07/01/17 11/30/17 History amlodipine 10 mg tablet 10 mg PO HS 30 Days #30 07/01/17 11/30/17 History risperidone 1 mg tablet 1 mg PO BID 30 Days #60 07/01/17 11/30/17 History sertraline 50 mg tablet 50 mg PO DAILY 30 Days #30 07/01/17 11/30/17 History levETIRAcetam [Keppra] 750 mg PO BID 07/28/17 11/29/17 History Acyclovir 800 mg PO DAILY 11/29/17 11/29/17 History Docusate Sodium [Docusate Sodium 100 mg PO BID 11/29/17 11/29/17 History 100mg Cap] Melatonin/Pyridoxine [Melatonin 3 6 mg PO HS 11/29/17 11/30/17 History mg Tablet] Omeprazole [Omeprazole 40mg 40 mg PO DAILY 11/29/17 11/29/17 History Capsule] Aspirin [Aspirin 81mg chewable 81 mg PO DAILY 11/30/17 11/30/17 History tab] Baclofen 20 mg PO Q8HP PRN 11/30/17 11/30/17 History LORazepam [Ativan] 0.5 mg PO Q12H PRN 11/30/17 11/30/17 History Lactulose [Lactulose 10gm/15ml 30 ml PO DAILYP PRN 11/30/17 11/30/17 History Oral Soln] Lisinopril [Lisinopril 20mg Tab] 20 mg PO DAILY 11/30/17 11/30/17 History Polyethylene Glycol 3350 [Miralax 17 gm PO DAILYP PRN 11/30/17 11/30/17 History 17gm Packet] Sennosides [Senna] 8.6 mg PO DAILY 11/30/17 11/30/17 History Height: 1.57 m Weight: 53.722 kg Laboratory Results:: Laboratory Results - last 24 hr 12/06/17 23:00: Random Tobramycin 1.7 12/07/17 09:38: WBC 8.0 D, RBC 3.31 L, Hgb 10.0 L, Hct 30.7 L, MCV 92.8, MCH 30.2, MCHC 32.5, RDW 15.0, Plt Count 282 D, MPV 7.3 L, Neut % (Auto) 81.4 H, Lymph % (Auto) 13.4, [place] % (Auto) 3.8, Eos % (Auto) 1.3, Baso % (Auto) 0.2, Neut # (Auto) 6.5, Lymph # (Auto) 1.1, [place] # (Auto) 0.3, Eos # (Auto) 0.1, Baso # (Auto) 0.0 12/07/17 09:38: Sodium 144, Potassium 3.2 L, Chloride 105, Carbon Dioxide 33 H, Anion Gap 9.2, BUN 11, Creatinine 0.49 L, Estimated Creat Clear 46, Estimated GFR 126, Est GFR ( Amer) 152, Glucose 122 H, Calcium 8.7 Medical History: Reports:: Seizures (schizoaffective; PD) Assessment and Plan (1) UTI (urinary tract infection) Current visit: Yes Status: Acute Category: Medical Code(s): N39.0 - Urinary tract infection, site not specified (2) Acute delirium Current visit: Yes Status: Acute Category: Medical Code(s): R41.0 - Disorientation, unspecified (3) Hypokalemia Current visit: Yes Status: Acute Category: Medical Code(s): E87.6 - Hypokalemia (4) Low body mass index (BMI) Current visit: Yes Status: Acute Category: Medical (5) Hypokalemia Current visit: Yes Status: Acute Category: Medical Code(s): E87.6 - Hypokalemia (6) Decubitus skin ulcer Current visit: Yes Status: Acute Qualifiers: Pressure injury stage: stage 3 Laterality: unspecified laterality Category: Medical Code(s): L89.90 - Pressure ulcer of unspecified site, unspecified stage (7) Anemia Current visit: Yes Status: Acute Qualifiers: Anemia type: unspecified type Qualified Code(s): D64.9 - Anemia, unspecified Category: Medical Code(s): D64.9 - Anemia, unspecified (8) Pseudomonas aeruginosa infection Current visit: Yes Status: Acute Category: Medical Code(s): A49.8 - Other bacterial infections of unspecified site (9) CVA, old, hemiparesis Current visit: Yes Status: Acute Category: Medical Code(s): I69.359 - Hemiplegia and hemiparesis following cerebral infarction affecting unspecified side - Assessment and plan all Dx Assessment and Plan for all problems:: BASED ON PATIENT'S TOBRAMYCIN 12 HOUR LEVEL OF 1.7 MCG/ML, RECOMMEND CONTINUING WITH CURRENT DOSE AND INTERVAL OF TOBRAMYCIN 360 MG Q24 AT THIS TIME. PHARMACY WILL FOLLOW DAILY AND ADJUST APPROPRIATE. STEPHANY NICOLE, PHARMD
[2017-12-08 08:08] LABS: Lymphocytes # 1.3 K/mm3 (0.7-4.5); Monocytes # 0.3 K/mm3 (0.1-1.0)
[2017-12-08 08:10] LABS: Basophils % 0.2 % (0.1-2.0); Eosinophils # 0.3 K/mm3 (0.0-0.4); Eosinophils % 2.8 % (0.1-12.0); Hematocrit 27.9 % (37.0-47.0); Lymphocytes % 13.7 K/mm3 (10-50); Mean Corpuscular HGB Conc 32.1 g/dL (31.8-35.4); Mean Corpuscular Hemoglobin 29.7 pg (27.0-31.2); Mean Corpuscular Volume 92.6 fl (81-99); Mean Platelet Volume 7.2 fl (7.4-10.4); Monocytes % 3.5 % (1.7-9.3); Neutrophils # 7.3 K/mm3 (1.8-7.8); Neutrophils % 79.8 % (37.0-80.0); Platelet Count 263 K/mm3 (142-424); Red Blood Count 3.01 M/mm3 (4.20-5.40); Red Cell Distribution Width 15.1 % (11.5-17.5); White Blood Count 9.1 K/mm3 (4.8-10.8)
[2017-12-08 08:22] LABS: Hemoglobin 8.9 g/dL (12.2-16.2)
[2017-12-08 08:26] LABS: Chloride 103 mmol/L (98-107); Sodium 136 mmol/L (136-145)
[2017-12-08 08:40] LABS: Alkaline Phosphatase 65 U/L (46-116); Anion Gap 11.9 mEq/L (5-15); Aspartate Amino Transferase 18 U/L (15-37); Bilirubin,Total 0.4 mg/dL (0.2-1.0); Carbon Dioxide 24 mmol/L (21.0-32.0); Total Protein,Serum 5.5 gm/dL (6.4-8.2)
[2017-12-08 08:45] LABS: Potassium 2.9 mmoL/L (3.5-5.1)
--- NOTE | 2017-12-08 09:54 | Progress Note ---
Internal Medicine - PN: Subj *Date: 12/08/17 *Time: 14:09 Exam Vital signs and Labs for Last 24 Hours: Temp Pulse Resp BP Pulse Ox 100.1 F H 76 18 144/55 97 12/08/17 07:50 12/08/17 07:50 12/08/17 07:50 12/08/17 07:50 12/08/17 07:50 Laboratory Results - last 24 hr 12/07/17 09:38: WBC 8.0 D, RBC 3.31 L, Hgb 10.0 L, Hct 30.7 L, MCV 92.8, MCH 30.2, MCHC 32.5, RDW 15.0, Plt Count 282 D, MPV 7.3 L, Neut % (Auto) 81.4 H, Lymph % (Auto) 13.4, [place] % (Auto) 3.8, Eos % (Auto) 1.3, Baso % (Auto) 0.2, Neut # (Auto) 6.5, Lymph # (Auto) 1.1, [place] # (Auto) 0.3, Eos # (Auto) 0.1, Baso # (Auto) 0.0 12/07/17 09:38: Sodium 144, Potassium 3.2 L, Chloride 105, Carbon Dioxide 33 H, Anion Gap 9.2, BUN 11, Creatinine 0.49 L, Estimated Creat Clear 46, Estimated GFR 126, Est GFR ( Amer) 152, Glucose 122 H, Calcium 8.7 12/08/17 08:00: WBC 9.1, RBC 3.01 L, Hgb 8.9 L D, Hct 27.9 L, MCV 92.6, MCH 29.7 , MCHC 32.1, RDW 15.1, Plt Count 263, MPV 7.2 L, Neut % (Auto) 79.8, Lymph % ( Auto) 13.7, [place] % (Auto) 3.5, Eos % (Auto) 2.8, Baso % (Auto) 0.2, Neut # (Auto ) 7.3, Lymph # (Auto) 1.3, [place] # (Auto) 0.3, Eos # (Auto) 0.3, Baso # (Auto) 0.0 12/08/17 08:00: Sodium 136, Potassium 2.9 L*, Chloride 103, Carbon Dioxide 24 D , Anion Gap 11.9, BUN TNP, Creatinine TNP, Estimated GFR TNP, Est GFR ( Amer) TNP, Glucose TNP, Calcium TNP, Total Bilirubin 0.4, AST 18, ALT TNP, Alkaline Phosphatase 65, Total Protein 5.5 L, Albumin TNP, Globulin TNP, Albumin /Globulin Ratio TNP I & O for Last 24 hours: Intake & Output 12/05/17 12/06/17 12/07/17 12/08/17 11:59 11:59 11:59 11:59 Intake Total 842 / 842 2280 / 2280 4175 / 4175 3052 / 3052 Output Total 300 / 300 200 / 200 550 / 550 250 / 250 Balance 542 / 542 2080 / 2080 3625 / 3625 2802 / 2802 Weight 118 lb 7 oz 118 lb 7 oz 118 lb 7 oz Microbiology Reports for the Last 24 Hours: Microbiology 12/05/17 10:33 Blood Blood Culture - Preliminary NO GROWTH AFTER 48 HOURS 12/05/17 10:33 Blood Blood Culture - Preliminary NO GROWTH AFTER 48 HOURS - Constitutional no acute distress - *Routine HEENT Exam Head: Present: normocephalic Eye: Present: PERRL ENT: Present: mucous membranes moist - *Routine Neck Exam Present: supple - *Routine Respiratory Exam Present: CTA bilaterally - *Routine Cardiovascular Exam Present: RRR, murmur - *Routine Abdominal Exam Present: soft, normoactive bowel sounds, tenderness - *Routine Exam Patient deferred: external exam Comments: melton draining at bedside - *Routine Extremities Exam Present: full ROM - *Routine Skin Exam Present: wounds Comments: stage 4 on coccyx - *Routine Neurological Exam Present: alert, oriented X3 - Routine Psychiatric Exam Present: normal affect, normal thought process Comments: pt more talkative today and answers questions vamsi Assessment and Plan (1) UTI (urinary tract infection) Current visit: Yes Status: Acute Category: Medical Code(s): N39.0 - Urinary tract infection, site not specified (2) Acute delirium Current visit: Yes Status: Acute Category: Medical Code(s): R41.0 - Disorientation, unspecified (3) Hypokalemia Current visit: Yes Status: Acute Category: Medical Code(s): E87.6 - Hypokalemia (4) Low body mass index (BMI) Current visit: Yes Status: Acute Category: Medical (5) Hypokalemia Current visit: Yes Status: Acute Category: Medical Code(s): E87.6 - Hypokalemia (6) Decubitus skin ulcer Current visit: Yes Status: Acute Qualifiers: Pressure injury stage: stage 3 Laterality: unspecified laterality Category: Medical Code(s): L89.90 - Pressure ulcer of unspecified site, unspecified stage (7) Anemia Current visit: Yes Status: Acute Qualifiers: Anemia type: unspecified type Qualified Code(s): D64.9 - Anemia, unspecified Category: Medical Code(s): D64.9 - Anemia, unspecified (8) Pseudomonas aeruginosa infection Current visit: Yes Status: Acute Category: Medical Code(s): A49.8 - Other bacterial infections of unspecified site (9) CVA, old, hemiparesis Current visit: Yes Status: Acute Category: Medical Code(s): I69.359 - Hemiplegia and hemiparesis following cerebral infarction affecting unspecified side - Assessment and plan all Dx Assessment and Plan for all problems:: Dr Mehta rounded earlier today and all orders per beverly meyer dc back to [facility] tomorrow
[2017-12-09 08:36] LABS: Basophils % 0.4 % (0.1-2.0); Eosinophils # 0.2 K/mm3 (0.0-0.4); Eosinophils % 1.8 % (0.1-12.0); Hematocrit 29.6 % (37.0-47.0); Hemoglobin 9.7 g/dL (12.2-16.2); Lymphocytes # 1.6 K/mm3 (0.7-4.5); Lymphocytes % 14.6 K/mm3 (10-50); Mean Corpuscular HGB Conc 32.8 g/dL (31.8-35.4); Mean Corpuscular Hemoglobin 30.2 pg (27.0-31.2); Mean Corpuscular Volume 92.1 fl (81-99); Mean Platelet Volume 8.2 fl (7.4-10.4); Monocytes # 0.4 K/mm3 (0.1-1.0); Neutrophils # 8.5 K/mm3 (1.8-7.8); Neutrophils % 79.3 % (37.0-80.0); Platelet Count 317 K/mm3 (142-424); Red Blood Count 3.21 M/mm3 (4.20-5.40); Red Cell Distribution Width 15.2 % (11.5-17.5); White Blood Count 10.7 K/mm3 (4.8-10.8)
[2017-12-09 08:47] LABS: Albumin Level 2.5 gm/dL (3.4-5.0); Albumin/Globulin Ratio 0.7 (1.1-1.8); Anion Gap 6.4 mEq/L (5-15); Bilirubin,Total 0.4 mg/dL (0.2-1.0); Calcium 9.1 mg/dL (8.5-10.1); Globulin 3.6 gm/dl (1.3-3.2); Potassium 3.4 mmoL/L (3.5-5.1); Total Protein,Serum 6.1 gm/dL (6.4-8.2)
--- NOTE | 2017-12-09 10:09 | Discharge Summary ---
Addendum entered and electronically signed by Gabby Allen APRN 12/27/17 13:10: add abnormal urinalysis with 2+ leukocytes Urine culture identified Pseudomonas Pressure decubitus to the sacrum Original Note: General - General Admission date:: 12/03/17 Discharge date: 12/09/17 HPI HPI: this elderly wf to tx staff, pt is a hospice patient who became more lethargic this date and her. daughter wanted to evaluate her at er pt had dec po intake and with dec loc - pt unable to give sig hx - pt was seen in the ed and noted to have uti - pt was admitted for ivf and abx - Hospital Course Hospital Course: pt with ivf and abx and was found to have positive uti -pt was found to have pseudomonas aeruginosa and was placed on dual abx - she slowly improved and inc po intake - she did dev hypokalemia but treated and resolved and she had stable anemia - she had stage 4 sacral decubitus- which has remained stable - Objective Vital signs: Temp Pulse Resp BP Pulse Ox 97.9 F 90 18 138/53 90 L 12/09/17 07:38 12/09/17 07:38 12/09/17 07:38 12/09/17 07:38 12/09/17 07:38 no acute distress, chronically ill appearing - *Routine HEENT Exam Head: Present: normocephalic, atraumatic Eye: Present: EOMI, PERRL ENT: Present: mucous membranes dry - *Routine Neck Exam Present: supple - *Routine Respiratory Exam Present: decreased breath sounds - *Routine Cardiovascular Exam Present: RRR, murmur, S4 - *Routine Abdominal Exam Present: soft - *Routine Extremities Exam Present: edema - *Routine Skin Exam Comments: has chronic stage 4 decubitus which apperared stable at this time - *Routine Neurological Exam no focal changes - Routine Psychiatric Exam Comments: more alert today Results Labs on day of discharge: Labs from last 24 hours 12/09/17 12/09/17 07:50 07:50 WBC 10.7 RBC 3.21 L Hgb 9.7 L Hct 29.6 L MCV 92.1 MCH 30.2 MCHC 32.8 RDW 15.2 Plt Count 317 MPV 8.2 Neut % (Auto) 79.3 Lymph % (Auto) 14.6 [place] % (Auto) 4.0 Eos % (Auto) 1.8 Baso % (Auto) 0.4 Neut # (Auto) 8.5 H Lymph # (Auto) 1.6 [place] # (Auto) 0.4 Eos # (Auto) 0.2 Baso # (Auto) 0.0 Sodium 138 Potassium 3.4 L Chloride 101 Carbon Dioxide 34 H D Anion Gap 6.4 BUN 9 Creatinine 0.44 L Estimated Creat Clear 46 Estimated GFR 143 Est GFR ( Amer) 173 Glucose 91 Calcium 9.1 Total Bilirubin 0.4 AST 18 ALT 20 Alkaline Phosphatase 72 Total Protein 6.1 L Albumin 2.5 L Globulin 3.6 H Albumin/Globulin Ratio 0.7 L Preliminary micro results at discharge 12/05/17 10:33 Blood Culture - Preliminary Blood NO GROWTH AFTER 48 HOURS 12/05/17 10:33 Blood Culture - Preliminary Blood NO GROWTH AFTER 48 HOURS DS: Diagnosis - Discharge Diagnosis (1) UTI (urinary tract infection) Status: Acute (2) Acute delirium Status: Acute (3) Hypokalemia Status: Acute (4) Low body mass index (BMI) Status: Acute (5) Decubitus skin ulcer Status: Acute (6) Anemia Status: Acute (7) Pseudomonas aeruginosa infection Status: Acute (8) CVA, old, hemiparesis Status: Acute Discharge Plan - Patient Discharge Instructions ACTIVITY: Continue current activity DIET: continue same diet Patient Instructions: DI for Pressure Sores, DI for Urinary Tract Infection (UTI) - Follow up Plan Disposition: [facility] Home Medications: Home Medications Medication Instructions Recorded Confirmed Type acetaminophen 325 mg capsule 650 mg PO Q6HP PRN 07/01/17 11/30/17 History amlodipine 10 mg tablet 10 mg PO HS 30 Days #30 07/01/17 11/30/17 History risperidone 1 mg tablet 1 mg PO BID 30 Days #60 07/01/17 11/30/17 History sertraline 50 mg tablet 50 mg PO DAILY 30 Days #30 07/01/17 11/30/17 History levETIRAcetam [Keppra] 750 mg PO BID 07/28/17 11/29/17 History Acyclovir 800 mg PO DAILY 11/29/17 11/29/17 History Docusate Sodium [Docusate Sodium 100 mg PO BID 11/29/17 11/29/17 History 100mg Cap] Melatonin/Pyridoxine [Melatonin 3 6 mg PO HS 11/29/17 11/30/17 History mg Tablet] Omeprazole [Omeprazole 40mg 40 mg PO DAILY 11/29/17 11/29/17 History Capsule] Aspirin [Aspirin 81mg chewable 81 mg PO DAILY 11/30/17 11/30/17 History tab] Baclofen 20 mg PO Q8HP PRN 11/30/17 11/30/17 History LORazepam [Ativan] 0.5 mg PO Q12H PRN 11/30/17 11/30/17 History Lactulose [Lactulose 10gm/15ml 30 ml PO DAILYP PRN 11/30/17 11/30/17 History Oral Soln] Lisinopril [Lisinopril 20mg Tab] 20 mg PO DAILY 11/30/17 11/30/17 History Polyethylene Glycol 3350 [Miralax 17 gm PO DAILYP PRN 11/30/17 11/30/17 History 17gm Packet] Sennosides [Senna] 8.6 mg PO DAILY 11/30/17 11/30/17 History Prescriptions/Medication Reconciliation: New levoFLOXacin [Levaquin 500mg tab] 500 mg PO DAILY #7 tab Continue acetaminophen 325 mg capsule 650 mg PO Q6HP PRN PRN Reason: PAIN/FEVER sertraline 50 mg tablet 50 mg PO DAILY 30 Days #30 amlodipine 10 mg tablet 10 mg PO HS 30 Days #30 risperidone 1 mg tablet 1 mg PO BID 30 Days #60 levETIRAcetam [Keppra] 750 mg PO BID Melatonin/Pyridoxine [Melatonin 3 mg Tablet] 6 mg PO HS Sennosides [Senna] 8.6 mg PO DAILY Polyethylene Glycol 3350 [Miralax 17gm Packet] 17 gm PO DAILYP PRN PRN Reason: Constipation Aspirin [Aspirin 81mg chewable tab] 81 mg PO DAILY LORazepam [Ativan] 0.5 mg PO Q12H PRN PRN Reason: Anxiety Baclofen 20 mg PO Q8HP PRN PRN Reason: MUSCLE SPASMS Omeprazole [Omeprazole 40mg Capsule] 40 mg PO DAILY Docusate Sodium [Docusate Sodium 100mg Cap] 100 mg PO BID Acyclovir 800 mg PO DAILY Lisinopril [Lisinopril 20mg Tab] 20 mg PO DAILY Lactulose [Lactulose 10gm/15ml Oral Soln] 30 ml PO DAILYP PRN PRN Reason: Constipation Discontinued potassium chloride ER 10 mEq tablet,extended release 10 meq PO DAILY 14 Days #14 furosemide 40 mg tablet 40 mg PO DAILY 14 Days #14 risperidone 3 mg tablet 3 mg PO HS 30 Days #30 Hydrocodone/Acetaminophen [Hydrocodone-Acetamin 5-325 mg] 1 each PO Q4HP PRN PRN Reason: PAIN
== END 2017-12-09 12:00 ==
LOC: ER 17:26 → 2ND 17:26 → UNDODISIN 12-08 09:55
PROVIDERS: ADMIT Internal Medicine Adolescent Medicine; ATTEND Emergency Medicine
CPT/HCPCS: 36415; 70450; 71010; 71045; 80048; 80053; 80200; 81001; 82803; 82962; 83605; 84484; 85025; 87040; 87086; 87088; 87186; 93005; 94761; 96365; 96366; 96375; 99284; G0378; J1956; J2310

== ENCOUNTER 2017-12-13 14:53 | Observation (INO) ==
--- NOTE | 2017-12-13 15:09 | Emergency Department Note ---
ED Disposition Clinical Impression: Hypokalemia Urinary tract infection Qualifiers: Urinary tract infection type: site unspecified Hematuria presence: without hematuria Qualified Code(s): N39.0 - Urinary tract infection, site not specified Altered mental status Qualifiers: Altered mental status type: somnolence Qualified Code(s): R40.0 - Somnolence Disposition: Still a Patient Condition on Discharge: Fair Referrals: Adrien Mehta MD [Primary Care Provider] - - Critical Care Critical Care Time: No Attestation: On , the high probability of a clinically significant, sudden or life threatening deterioration of the following system(s) required my full and direct attention, intervention and personal management. The time I documented below is in addition to time spent performing reported procedures but includes the following listed in this critical care notation. Medical Decision Making - Sukhwinder Inquiry Pt receiving controlled substance: No Vital Signs: 12/13/17 14:53 12/13/17 15:49 12/13/17 16:30 Temperature 98.7 F Temperature Source Oral Pulse Rate [Left Radial] 68 62 61 Respiratory Rate 18 Blood Pressure [Right Arm] 106/53 114/58 133/48 Blood Pressure Mean [Right Arm] 70 76 76 Blood Pressure Source [Right Arm] Automatic Cuff Manual Cuff/ Doppler Automatic Cuff Blood Pressure Position [Right Arm] Sitting Sitting Sitting 02 Sat by Pulse Oximetry 98 99 100 Oxygen Delivery Method Nasal Cannula Oxygen Flow Rate (LPM) 2 - Lab Data Lab Results 12/13/17 15:40: WBC 6.5, RBC 3.21 L, Hgb 9.6 L, Hct 29.8 L, MCV 92.9, MCH 30.0, MCHC 32.3, RDW 15.4, Plt Count 384, MPV 7.0 L, Neut % (Auto) 77.1, Lymph % (Auto ) 17.2, [place] % (Auto) 3.3, Eos % (Auto) 2.2, Baso % (Auto) 0.2, Neut # (Auto) 5.0, Lymph # (Auto) 1.1, [place] # (Auto) 0.2, Eos # (Auto) 0.1, Baso # (Auto) 0.0 12/13/17 15:40: Sodium 144, Potassium 2.7 L*, Chloride 102, Carbon Dioxide 36 H , Anion Gap 8.7, BUN 6 L, Creatinine 0.52 L, Estimated Creat Clear 42, Estimated GFR 118, Est GFR ( Amer) 142, Glucose 94, Calcium 8.4 L, Total Bilirubin 0.5, AST 21, ALT 18, Alkaline Phosphatase 83, Troponin I < 0.02, Total Protein 6.0 L, Albumin 2.5 L, Globulin 3.5 H, Albumin/Globulin Ratio 0.7 L 12/13/17 15:40: Urine Color Yellow, Urine Appearance Clear, Urine pH 6.0, Ur Specific Spur >= 1.030, Urine Protein Negative, Urine Glucose (UA) Negative, Urine Ketones Negative, Urine Blood Negative, Urine Nitrate Negative, Urine Bilirubin Negative, Urine Urobilinogen 1.0, Ur Leukocyte Esterase 1+ A, Urine RBC Occasional, Urine WBC 10-20, Ur Squamous Epith Cells Occasional, Ur Transition Epith Cell 3-5, Calcium Oxalate Crystal Trace, Urine Bacteria 2+, Hyaline Casts 10-20, Urine Mucus 3+ Result diagrams: 12/13/17 15:40 12/13/17 15:40 Orders (Tests/Meds): ED MEDICATIONS Generic Name Dose Route Start Last Admin Trade Name Freq PRN Reason Stop Dose Admin Levofloxacin/Dextrose 500 mg in 100 mls @ 100 mls/hr 12/13/17 17:00 Levaquin 500mg/100ml Premix IV 12/27/17 16:59 Q24H [facility] Protocol Miscellaneous 1 each 12/13/17 17:00 Tobramycin Consult Request * 01/12/18 16:59 [facility] Discontinued Medications Generic Name Dose Route Start Last Admin Trade Name Freq PRN Reason Stop Dose Admin Potassium Chloride 60 meq 12/13/17 16:07 12/13/17 16:36 Klor-Con 20meq Tablet PO 12/13/17 16:08 60 meq ONCE ONE Administration ORDERS Category Date Time Status Urine Culture Stat Micro 12/13/17 15:40 Received - ECG Data Tracing #1 EKG interpreted by Mulugeta Cristina MD: Rhythm: sinus Rate: 69 [place]: Left Ectopy: Premature ventricular contraction present Conduction: Right bundle branch block and left anterior fascicular block ST Segment Changes: none T Wave Changes: none Q Waves: none LVH poor R-wave progression Prior electrocardiagrams reviewed. No change from prior tracings. - Physician Consults Physician Consulted: beverly Time: 16:52 Reason -: Admission Comment/Response: Agrees to admit the patient to the hospital. We discussed the patient's clinical information, including history, exam, laboratory and radiology results and ED course. Per hospital procedure, I will write temporary bridge inpatient orders on the patient. Specific orders requested by the admitting physician: Intravenous Levaquin and tobramycin Medical Decision Narrative: Urine culture on 11/29/17 showed pseudomonas aeruginosa greater than 100,000 colony count. General Adult HPI - General Chief complaint: Weakness Stated complaint: Lethargic Time Seen by Provider: 12/13/17 15:09 Mode of Arrival: EMS Limitations: Physical Limitations Description of Symptoms (Recalled from ER Triage Doc. by RN): Per residential pt was lethargic this morning but was able to talk but the lethargic has been worse t/o the day. Pt is A&O x4 states she has no complaints at this time. - History of Present Illness HPI narrative: Brought in from residential for altered mental status, lethargic all day. Patient denies any current complaints. Denies pain. Frequent visits here for the same complaint. Recent admission 12/03/17 through 12/09/17. Recent urinary tract infection. Currently on Levaquin for the past 3 days for UTI, to be continued through 12/16/17. - Related Data Home Medications Medication Instructions Recorded Confirmed acetaminophen 325 mg capsule 650 mg PO Q6HP PRN 07/01/17 12/13/17 amlodipine 10 mg tablet 10 mg PO HS 30 Days #30 07/01/17 12/13/17 risperidone 1 mg tablet 1 mg PO BID 30 Days #60 07/01/17 12/13/17 sertraline 50 mg tablet 50 mg PO DAILY 30 Days #30 07/01/17 12/13/17 levETIRAcetam [Keppra] 750 mg PO BID 07/28/17 12/13/17 Acyclovir 800 mg PO DAILY 11/29/17 12/13/17 Docusate Sodium [Docusate Sodium 100 mg PO BID 11/29/17 12/13/17 100mg Cap] Melatonin/Pyridoxine [Melatonin 3 6 mg PO HS 11/29/17 12/13/17 mg Tablet] Omeprazole [Omeprazole 40mg 40 mg PO DAILY 11/29/17 12/13/17 Capsule] Aspirin [Aspirin 81mg chewable 81 mg PO DAILY 11/30/17 12/13/17 tab] Baclofen 20 mg PO Q8HP PRN 11/30/17 12/13/17 LORazepam [Ativan] 0.5 mg PO Q12H PRN 11/30/17 12/13/17 Lactulose [Lactulose 10gm/15ml 30 ml PO DAILYP PRN 11/30/17 12/13/17 Oral Soln] Lisinopril [Lisinopril 20mg Tab] 20 mg PO DAILY 11/30/17 12/13/17 Polyethylene Glycol 3350 [Miralax 17 gm PO DAILYP PRN 11/30/17 12/13/17 17gm Packet] Sennosides [Senna] 8.6 mg PO DAILY 11/30/17 12/13/17 levoFLOXacin [Levaquin 500mg 500 mg PO DAILY 12/09/17 12/13/17 tab] Allergies Allergy/AdvReac Type Severity Reaction Status Date / Time egg [From EGGS (FOOD/DRUG)] Allergy Unknown I-RASH Verified 07/28/17 08:44 Penicillins [PENICILLINS] Allergy Unknown Verified 07/28/17 08:44 Sulfa (Sulfonamide Allergy Unknown Verified 07/28/17 08:44 Antibiotics) [SULFA (SULFONAMIDE ANTIBIOTICS)] trimethoprim [TRIMETHOPRIM] Allergy Unknown Verified 07/28/17 08:44 From EGGS (FOOD/DRUG) Allergy Unknown I-RASH Uncoded 07/01/17 09:29 [facility] History I have reviewed the patient's past medical history: Yes Medical History: Reports:: Seizures (schizoaffective; PD) Denies:: Diabetes Mellitus Type 1, Diabetes Mellitus Type 2 Other Medical History: Reports: Other (schizoaffective) Laterality Cases: Bilateral: Total Hip Replacement Other Surgeries: Yes: Appendectomy, Cardiac Surgery, Hysterectomy-Total, Other Comment: gallbladder, aortic aneurysm - Social History Smoking Status: Never smoker Tobacco Type: cigarettes Alcohol Intake: never Substance Use Type: denies use Occupational Status: disabled Housing: residential - Psychiatric History Expresses thoughts of harming self/others: None Suicide Plan Description: No Plan Family Hx:: Stroke, Hypertension ROS Obtained: Yes All systems reviewed & no additional complaints - Constitutional Constitutional: Denies fever(s) - Cardiovascular Cardiovascular: Denies chest pain - Respiratory Respiratory: No cough, No dyspnea - Gastrointestinal Gastrointestingal: Denies: abdominal pain, diarrhea, vomiting - Neurologic Neurologic: Denies headache(s) Physical Exam - General General appearance: other Comment: Lays with eyes closed. Opens eyes to voice. Stares straight ahead most of the time during interview. She will look at me when I ask her to do so. She can count fingers. She answers questions but there is a delay between the question and her answer. When she speaks, speech is clear. Pupils constricted, approximately 2 mm bilaterally. - Head Head exam: atraumatic, normocephalic, normal inspection - Eye Eye exam: Present: PERRL, EOMI, miosis - ENT ENT exam: Present: mucous membranes moist - Neck Neck exam: Present: normal inspection, full ROM, trachea midline. Absent: meningismus, lymphadenopathy - Chest Chest inspection: Present: normal inspection, symmetric chest wall rise. Absent : tenderness - Respiratory Respiratory exam: Present: normal lung sounds bilaterally. Absent: respiratory distress - Cardiovascular Cardiovascular exam: Present: regular rate, normal rhythm. Absent: JVD - Abdominal Exam Abdominal exam: Present: soft, normal bowel sounds. Absent: distention, tenderness, guarding - Extremities Exam Extremities exam: Present: other (Contractures of all 4 extremities. Heel pads in place.) - Back Exam Back exam: Present: normal inspection. Absent: tenderness - Neurological Exam Neurological exam: Present: alert, oriented X3 - Psychiatric Psychiatric exam: Present: flat affect - Skin Skin exam: Present: warm, dry, intact, normal color
[2017-12-13 15:46] LABS: Microscopic, Urine URINE MICROSCOPIC (MICROSCOPIC)
[2017-12-13 15:47] LABS: Basophils % 0.2 % (0.1-2.0); Eosinophils # 0.1 K/mm3 (0.0-0.4); Eosinophils % 2.2 % (0.1-12.0); Hematocrit 29.8 % (37.0-47.0); Hemoglobin 9.6 g/dL (12.2-16.2); Lymphocytes # 1.1 K/mm3 (0.7-4.5); Lymphocytes % 17.2 K/mm3 (10-50); Mean Corpuscular HGB Conc 32.3 g/dL (31.8-35.4); Mean Corpuscular Volume 92.9 fl (81-99); Monocytes # 0.2 K/mm3 (0.1-1.0); Monocytes % 3.3 % (1.7-9.3); Neutrophils % 77.1 % (37.0-80.0); Platelet Count 384 K/mm3 (142-424); Red Blood Count 3.21 M/mm3 (4.20-5.40); Red Cell Distribution Width 15.4 % (11.5-17.5); White Blood Count 6.5 K/mm3 (4.8-10.8)
[2017-12-13 15:50] LABS: Appearance,Urine CLEAR (Clear); Bilirubin,Urine Negative (Negative); Blood, Urine Negative (Negative); Color,Urine YELLOW (Yellow); Glucose,Urine (UA) Negative (Negative); Ketones,Urine Negative (Negative); Leukocyte Esterase,Urine 1+ (Negative); Protein,Urine Negative (Negative); Specific Gravity, Urine >= 1.030 (1.005-1.030)
[2017-12-13 16:01] LABS: Alanine Aminotransferase 18 U/L (12-78); Albumin Level 2.5 gm/dL (3.4-5.0); Albumin/Globulin Ratio 0.7 (1.1-1.8); Alkaline Phosphatase 83 U/L (46-116); Anion Gap 8.7 mEq/L (5-15); Aspartate Amino Transferase 21 U/L (15-37); Bilirubin,Total 0.5 mg/dL (0.2-1.0); Blood Urea Nitrogen 6 mg/dL (7-18); Calcium 8.4 mg/dL (8.5-10.1); Carbon Dioxide 36 mmol/L (21.0-32.0); Chloride 102 mmol/L (98-107); Globulin 3.5 gm/dl (1.3-3.2); Glucose 94 mg/dL (74-106); Sodium 144 mmol/L (136-145)
[2017-12-13 16:04] LABS: Bacteria,Urine 2+ /lpf; Calcium Oxalate Crystals,Urine Trace /lpf; Mucus,Urine 3+ /lpf; RBC,Urine Occasional #/hpf (0-3); Squamous Epithelial Cell,Urine Occasional #/hpf (0-5)
[2017-12-13 16:05] LABS: Potassium 2.7 mmoL/L (3.5-5.1)
[2017-12-14 06:52] LABS: Anion Gap 4.1 mEq/L (5-15); Calcium 7.9 mg/dL (8.5-10.1); Potassium 3.5 mmoL/L (3.5-5.1)
--- NOTE | 2017-12-14 09:08 | History & Physical Report ---
*Admission Date: 12/13/17 *Chief complaint: change mental status *History of present illness: this wf sent from [facility] for change in mental status - in from longterm for altered mental status, lethargic all day. Patient denies any current complaints. Denies pain. Frequent visits here for the same complaint. Recent admission 12/03/17 through 12/09/17. Recent urinary tract infection. Currently on Levaquin for the past 3 days for UTI, to be continued through 12/16/17. [facility] History I have reviewed the patient's past medical history: Yes Medical History: Reports:: Seizures (schizoaffective; PD) Denies:: Cancer, Diabetes Mellitus Type 1, Diabetes Mellitus Type 2, MRSA Other Medical History: Reports: Other (schizoaffective) Laterality Cases: Bilateral: Total Hip Replacement Other Surgeries: Yes: Appendectomy, Cardiac Surgery, Hysterectomy-Total, Other Amputation: No - *Social History Educational Level: Completed High School Smoking Status: Former smoker Tobacco Type: cigarettes Alcohol Intake: never Substance Use Type: denies use Occupational Status: disabled Housing: longterm Household Members: none - Psychiatric History Expresses thoughts of harming self/others: None Suicide Plan Description: No Plan *Family Hx:: Stroke, Hypertension Review of Systems - Review of Systems Review of systems:: pertinent systems reviewed and negative unless documented below - Constitutional Reports weakness - Eyes Denies change in vision - ENT Denies dizziness - *Cardiovascular Denies chest pain at rest - *Respiratory Denies cough - *Gastrointestinal Denies abdominal pain, Denies vomiting - *Genitourinary Denies blood in urine - *Musculoskeletal Denies joint pain - Integumentary/Breasts Denies rash - *Neurologic Denies headache(s) - Psychiatric Reports behavioral changes Meds Home Medications Medication Instructions Recorded Confirmed Type acetaminophen 325 mg capsule 650 mg PO Q6HP PRN 07/01/17 12/13/17 History amlodipine 10 mg tablet 10 mg PO HS 30 Days #30 07/01/17 12/13/17 History risperidone 1 mg tablet 1 mg PO BID 30 Days #60 07/01/17 12/13/17 History sertraline 50 mg tablet 50 mg PO DAILY 30 Days #30 07/01/17 12/13/17 History levETIRAcetam [Keppra] 750 mg PO BID 07/28/17 12/13/17 History Acyclovir 800 mg PO DAILY 11/29/17 12/13/17 History Docusate Sodium [Docusate Sodium 100 mg PO BID 11/29/17 12/13/17 History 100mg Cap] Omeprazole [Omeprazole 40mg 40 mg PO DAILY 11/29/17 12/13/17 History Capsule] Aspirin [Aspirin 81mg chewable 81 mg PO DAILY 11/30/17 12/13/17 History tab] Baclofen 20 mg PO Q8HP PRN 11/30/17 12/13/17 History LORazepam [Ativan] 0.5 mg PO Q12H PRN 11/30/17 12/13/17 History Lactulose [Lactulose 10gm/15ml 30 ml PO DAILYP PRN 11/30/17 12/13/17 History Oral Soln] Lisinopril [Lisinopril 20mg Tab] 20 mg PO DAILY 11/30/17 12/13/17 History Polyethylene Glycol 3350 [Miralax 17 gm PO DAILYP PRN 11/30/17 12/13/17 History 17gm Packet] Sennosides [Senna] 8.6 mg PO DAILY 11/30/17 12/13/17 History levoFLOXacin [Levaquin 500mg 500 mg PO DAILY 12/09/17 12/13/17 History tab] Melatonin 6 mg PO HS 12/14/17 12/14/17 History Allergies Allergy/AdvReac Type Severity Reaction Status Date / Time egg [From EGGS (FOOD/DRUG)] Allergy Unknown I-RASH Verified 07/28/17 08:44 Penicillins [PENICILLINS] Allergy Unknown Verified 07/28/17 08:44 Sulfa (Sulfonamide Allergy Unknown Verified 07/28/17 08:44 Antibiotics) [SULFA (SULFONAMIDE ANTIBIOTICS)] trimethoprim [TRIMETHOPRIM] Allergy Unknown Verified 07/28/17 08:44 From EGGS (FOOD/DRUG) Allergy Unknown I-RASH Uncoded 07/01/17 09:29 Exam Vital signs and Labs for Last 24 Hours: Temp Pulse Resp BP Pulse Ox 98.4 F 73 18 114/43 95 12/14/17 07:36 12/14/17 07:36 12/14/17 07:36 12/14/17 07:36 12/14/17 07:36 Laboratory Results - last 24 hr 12/13/17 15:40: WBC 6.5, RBC 3.21 L, Hgb 9.6 L, Hct 29.8 L, MCV 92.9, MCH 30.0, MCHC 32.3, RDW 15.4, Plt Count 384, MPV 7.0 L, Neut % (Auto) 77.1, Lymph % (Auto ) 17.2, [place] % (Auto) 3.3, Eos % (Auto) 2.2, Baso % (Auto) 0.2, Neut # (Auto) 5.0, Lymph # (Auto) 1.1, [place] # (Auto) 0.2, Eos # (Auto) 0.1, Baso # (Auto) 0.0 12/13/17 15:40: Sodium 144, Potassium 2.7 L*, Chloride 102, Carbon Dioxide 36 H , Anion Gap 8.7, BUN 6 L, Creatinine 0.52 L, Estimated Creat Clear 42, Estimated GFR 118, Est GFR ( Amer) 142, Glucose 94, Calcium 8.4 L, Total Bilirubin 0.5, AST 21, ALT 18, Alkaline Phosphatase 83, Troponin I < 0.02, Total Protein 6.0 L, Albumin 2.5 L, Globulin 3.5 H, Albumin/Globulin Ratio 0.7 L 12/13/17 15:40: Urine Color Yellow, Urine Appearance Clear, Urine pH 6.0, Ur Specific [place] >= 1.030, Urine Protein Negative, Urine Glucose (UA) Negative, Urine Ketones Negative, Urine Blood Negative, Urine Nitrate Negative, Urine Bilirubin Negative, Urine Urobilinogen 1.0, Ur Leukocyte Esterase 1+ A, Urine RBC Occasional, Urine WBC 10-20, Ur Squamous Epith Cells Occasional, Ur Transition Epith Cell 3-5, Calcium Oxalate Crystal Trace, Urine Bacteria 2+, Hyaline Casts 10-20, Urine Mucus 3+ 12/13/17 17:31: Lactate 0.6 12/13/17 22:00: Tobramycin Trough 5.0 H 12/14/17 06:12: Tobramycin Trough 1.7 12/14/17 06:12: Sodium 143, Potassium 3.5 D, Chloride 105, Carbon Dioxide 34 H , Anion Gap 4.1 L, BUN 7, Creatinine 0.48 L, Estimated Creat Clear 47, Estimated GFR 129, Est GFR ( Amer) 156, Glucose 93, Calcium 7.9 L 12/14/17 07:10: HIV 1&2 Antibody Rapid Non-reactive I & O for Last 24 hours: Intake & Output 12/11/17 12/12/17 12/13/17 12/14/17 11:59 11:59 11:59 11:59 Intake Total 480 / 480 Output Total 250 / 250 Balance 230 / 230 Weight 119 lb 7 oz - Constitutional no acute distress, thin - *Routine HEENT Exam Head: Present: normocephalic Eye: Present: EOMI, PERRL ENT: Present: mucous membranes dry - *Routine Neck Exam Absent: JVD - *Routine Respiratory Exam Present: decreased breath sounds - *Routine Cardiovascular Exam Present: RRR, murmur - *Routine Abdominal Exam Present: soft - *Routine Extremities Exam Absent: calf tenderness - *Routine Skin Exam Comments: has stage 4 decubitus noted - *Routine Neurological Exam Present: alert. Absent: motor deficit - Routine Psychiatric Exam Present: unable to assess Assessment and Plan (1) Change in mental status Current visit: Yes Status: Acute Qualifiers: Altered mental status type: delirium Qualified Code(s): R41.0 - Disorientation, unspecified Category: Medical Code(s): R41.82 - Altered mental status, unspecified (2) RBBB (right bundle branch block with left anterior fascicular block) Current visit: Yes Status: Acute Category: Medical Code(s): I45.2 - Bifascicular block (3) Schizoaffective disorder, depressive type Current visit: Yes Status: Acute Category: Medical Code(s): F25.1 - Schizoaffective disorder, depressive type (4) Decubitus ulcer of buttock, stage 4 Current visit: Yes Status: Acute Category: Medical Code(s): L89.304 - Pressure ulcer of unspecified buttock, stage 4
--- NOTE | 2017-12-14 10:27 | Pharmacy Consult Notes ---
[facility] Pharmacy VTE Monitoring - Patient Demographics Admission date: 12/13/17 Report Date: 12/14/17 Time: 10:26 Allergies/Adverse Reactions: Patient Allergies egg [From EGGS (FOOD/DRUG)] Allergy (Unknown, Verified 07/28/17 08:44) I-RASH Penicillins [PENICILLINS] Allergy (Unknown, Verified 07/28/17 08:44) Sulfa (Sulfonamide Antibiotics) [SULFA (SULFONAMIDE ANTIBIOTICS)] Allergy ( Unknown, Verified 07/28/17 08:44) trimethoprim [TRIMETHOPRIM] Allergy (Unknown, Verified 07/28/17 08:44) From EGGS (FOOD/DRUG) Allergy (Unknown, Uncoded 07/01/17 09:29) I-RASH Height: 1.6 m Weight: 54.176 kg Patient Problems: Current Active Problems Altered mental status (Acute) UTI (urinary tract infection) (Acute) Hypokalemia (Acute) - VTE Risk Labs: VTE Related Lab Results Hgb 9.6 g/dL (12.2-16.2) L 12/13/17 15:40 Hct 29.8 % (37.0-47.0) L 12/13/17 15:40 Plt Count 384 K/mm3 (142-424) 12/13/17 15:40 BUN 7 mg/dL (7-18) 12/14/17 06:12 Creatinine 0.48 mg/dL (0.55-1.02) L 12/14/17 06:12 Estimated Creat Clear 47 mL/min (0-300) 12/14/17 06:12 VTE Score: 3 VTE Risk Level: Low Risk - Prophylaxis VTE Prophylaxis Ordered?: Yes Types of VTE Prophylaxis: TEDS Knee High Location of Applied Device: Bilateral Lower Extremeties - VTE Diagnosis Confirmed Treatment or plan recommended: Continue Current Treatment
--- NOTE | 2017-12-14 11:36 | Pharmacy Consult Notes ---
- Pharmacy Consult Date: 12/14/17 Time: 11:33 Referring provider: DR. COBB Reason for Consult:: TOBRAMYCIN DOSING Allergies and ADEs:: Allergies Allergy/AdvReac Type Severity Reaction Status Date / Time egg [From EGGS (FOOD/DRUG)] Allergy Unknown I-RASH Verified 07/28/17 08:44 Penicillins [PENICILLINS] Allergy Unknown Verified 07/28/17 08:44 Sulfa (Sulfonamide Allergy Unknown Verified 07/28/17 08:44 Antibiotics) [SULFA (SULFONAMIDE ANTIBIOTICS)] trimethoprim [TRIMETHOPRIM] Allergy Unknown Verified 07/28/17 08:44 From EGGS (FOOD/DRUG) Allergy Unknown I-RASH Uncoded 07/01/17 09:29 Home Medications:: Home Medications Medication Instructions Recorded Confirmed Type acetaminophen 325 mg capsule 650 mg PO Q6HP PRN 07/01/17 12/13/17 History amlodipine 10 mg tablet 10 mg PO HS 30 Days #30 07/01/17 12/13/17 History risperidone 1 mg tablet 1 mg PO BID 30 Days #60 07/01/17 12/13/17 History sertraline 50 mg tablet 50 mg PO DAILY 30 Days #30 07/01/17 12/13/17 History levETIRAcetam [Keppra] 750 mg PO BID 07/28/17 12/13/17 History Acyclovir 800 mg PO DAILY 11/29/17 12/13/17 History Docusate Sodium [Docusate Sodium 100 mg PO BID 11/29/17 12/13/17 History 100mg Cap] Omeprazole [Omeprazole 40mg 40 mg PO DAILY 11/29/17 12/13/17 History Capsule] Aspirin [Aspirin 81mg chewable 81 mg PO DAILY 11/30/17 12/13/17 History tab] Baclofen 20 mg PO Q8HP PRN 11/30/17 12/13/17 History LORazepam [Ativan] 0.5 mg PO Q12H PRN 11/30/17 12/13/17 History Lactulose [Lactulose 10gm/15ml 30 ml PO DAILYP PRN 11/30/17 12/13/17 History Oral Soln] Lisinopril [Lisinopril 20mg Tab] 20 mg PO DAILY 11/30/17 12/13/17 History Polyethylene Glycol 3350 [Miralax 17 gm PO DAILYP PRN 11/30/17 12/13/17 History 17gm Packet] Sennosides [Senna] 8.6 mg PO DAILY 11/30/17 12/13/17 History levoFLOXacin [Levaquin 500mg 500 mg PO DAILY 12/09/17 12/13/17 History tab] Melatonin 6 mg PO HS 12/14/17 12/14/17 History Height: 1.6 m Weight: 54.176 kg Laboratory Results:: Laboratory Results - last 24 hr 12/13/17 15:40: WBC 6.5, RBC 3.21 L, Hgb 9.6 L, Hct 29.8 L, MCV 92.9, MCH 30.0, MCHC 32.3, RDW 15.4, Plt Count 384, MPV 7.0 L, Neut % (Auto) 77.1, Lymph % (Auto ) 17.2, [place] % (Auto) 3.3, Eos % (Auto) 2.2, Baso % (Auto) 0.2, Neut # (Auto) 5.0, Lymph # (Auto) 1.1, [place] # (Auto) 0.2, Eos # (Auto) 0.1, Baso # (Auto) 0.0 12/13/17 15:40: Sodium 144, Potassium 2.7 L*, Chloride 102, Carbon Dioxide 36 H , Anion Gap 8.7, BUN 6 L, Creatinine 0.52 L, Estimated Creat Clear 42, Estimated GFR 118, Est GFR ( Amer) 142, Glucose 94, Calcium 8.4 L, Total Bilirubin 0.5, AST 21, ALT 18, Alkaline Phosphatase 83, Troponin I < 0.02, Total Protein 6.0 L, Albumin 2.5 L, Globulin 3.5 H, Albumin/Globulin Ratio 0.7 L 12/13/17 15:40: Urine Color Yellow, Urine Appearance Clear, Urine pH 6.0, Ur Specific [place] >= 1.030, Urine Protein Negative, Urine Glucose (UA) Negative, Urine Ketones Negative, Urine Blood Negative, Urine Nitrate Negative, Urine Bilirubin Negative, Urine Urobilinogen 1.0, Ur Leukocyte Esterase 1+ A, Urine RBC Occasional, Urine WBC 10-20, Ur Squamous Epith Cells Occasional, Ur Transition Epith Cell 3-5, Calcium Oxalate Crystal Trace, Urine Bacteria 2+, Hyaline Casts 10-20, Urine Mucus 3+ 12/13/17 17:31: Lactate 0.6 12/13/17 22:00: Tobramycin Trough 5.0 H 12/14/17 06:12: Tobramycin Trough 1.7 12/14/17 06:12: Sodium 143, Potassium 3.5 D, Chloride 105, Carbon Dioxide 34 H , Anion Gap 4.1 L, BUN 7, Creatinine 0.48 L, Estimated Creat Clear 47, Estimated GFR 129, Est GFR ( Amer) 156, Glucose 93, Calcium 7.9 L 12/14/17 07:10: HIV 1&2 Antibody Rapid Non-reactive Medical History: Reports:: Seizures (schizoaffective; PD) Denies:: Cancer, Diabetes Mellitus Type 1, Diabetes Mellitus Type 2, MRSA Assessment and Plan - Assessment and plan all Dx Assessment and Plan for all problems:: BASED ON PATIENT FACTORS, INITIATE TOBRAMYCIN IV AT 240MG Q24H. WILL OBTAIN POST INFUSION LEVELS AT 4 AND 12 HOURS. PHARMACY WILL THEN ADJUST DOSE APPRORIATE. -CARINE COVARRUBIAS PHARMD
--- NOTE | 2017-12-14 13:11 | Pharmacy Consult Notes ---
[facility] Pharmacy VTE Monitoring - Patient Demographics Allergies/Adverse Reactions: Patient Allergies egg [From EGGS (FOOD/DRUG)] Allergy (Unknown, Verified 07/28/17 08:44) I-RASH Penicillins [PENICILLINS] Allergy (Unknown, Verified 07/28/17 08:44) Sulfa (Sulfonamide Antibiotics) [SULFA (SULFONAMIDE ANTIBIOTICS)] Allergy ( Unknown, Verified 07/28/17 08:44) trimethoprim [TRIMETHOPRIM] Allergy (Unknown, Verified 07/28/17 08:44) From EGGS (FOOD/DRUG) Allergy (Unknown, Uncoded 07/01/17 09:29) I-RASH Height: 1.6 m Weight: 54.176 kg Patient Problems: Current Active Problems Altered mental status (Acute) UTI (urinary tract infection) (Acute) Hypokalemia (Acute) - VTE Risk Labs: VTE Related Lab Results Hgb 9.6 g/dL (12.2-16.2) L 12/13/17 15:40 Hct 29.8 % (37.0-47.0) L 12/13/17 15:40 Plt Count 384 K/mm3 (142-424) 12/13/17 15:40 BUN 7 mg/dL (7-18) 12/14/17 06:12 Creatinine 0.48 mg/dL (0.55-1.02) L 12/14/17 06:12 Estimated Creat Clear 47 mL/min (0-300) 12/14/17 06:12 VTE Score: 3 VTE Risk Level: Low Risk - Prophylaxis Location of Applied Device: Bilateral Lower Extremeties
--- NOTE | 2017-12-14 13:25 | Pharmacy Consult Notes ---
- Pharmacy Consult Date: 12/14/17 Time: 13:22 Referring provider: DR. COBB Reason for Consult:: TOBRAMYCIN LEVEL Allergies and ADEs:: Allergies Allergy/AdvReac Type Severity Reaction Status Date / Time egg [From EGGS (FOOD/DRUG)] Allergy Unknown I-RASH Verified 07/28/17 08:44 Penicillins [PENICILLINS] Allergy Unknown Verified 07/28/17 08:44 Sulfa (Sulfonamide Allergy Unknown Verified 07/28/17 08:44 Antibiotics) [SULFA (SULFONAMIDE ANTIBIOTICS)] trimethoprim [TRIMETHOPRIM] Allergy Unknown Verified 07/28/17 08:44 From EGGS (FOOD/DRUG) Allergy Unknown I-RASH Uncoded 07/01/17 09:29 Home Medications:: Home Medications Medication Instructions Recorded Confirmed Type acetaminophen 325 mg capsule 650 mg PO Q6HP PRN 07/01/17 12/13/17 History amlodipine 10 mg tablet 10 mg PO HS 30 Days #30 07/01/17 12/13/17 History risperidone 1 mg tablet 1 mg PO BID 30 Days #60 07/01/17 12/13/17 History sertraline 50 mg tablet 50 mg PO DAILY 30 Days #30 07/01/17 12/13/17 History levETIRAcetam [Keppra] 750 mg PO BID 07/28/17 12/13/17 History Acyclovir 800 mg PO DAILY 11/29/17 12/13/17 History Docusate Sodium [Docusate Sodium 100 mg PO BID 11/29/17 12/13/17 History 100mg Cap] Omeprazole [Omeprazole 40mg 40 mg PO DAILY 11/29/17 12/13/17 History Capsule] Aspirin [Aspirin 81mg chewable 81 mg PO DAILY 11/30/17 12/13/17 History tab] Baclofen 20 mg PO Q8HP PRN 11/30/17 12/13/17 History LORazepam [Ativan] 0.5 mg PO Q12H PRN 11/30/17 12/13/17 History Lactulose [Lactulose 10gm/15ml 30 ml PO DAILYP PRN 11/30/17 12/13/17 History Oral Soln] Lisinopril [Lisinopril 20mg Tab] 20 mg PO DAILY 11/30/17 12/13/17 History Polyethylene Glycol 3350 [Miralax 17 gm PO DAILYP PRN 11/30/17 12/13/17 History 17gm Packet] Sennosides [Senna] 8.6 mg PO DAILY 11/30/17 12/13/17 History levoFLOXacin [Levaquin 500mg 500 mg PO DAILY 12/09/17 12/13/17 History tab] Melatonin 6 mg PO HS 12/14/17 12/14/17 History Height: 1.6 m Weight: 54.176 kg Laboratory Results:: Laboratory Results - last 24 hr 12/13/17 15:40: WBC 6.5, RBC 3.21 L, Hgb 9.6 L, Hct 29.8 L, MCV 92.9, MCH 30.0, MCHC 32.3, RDW 15.4, Plt Count 384, MPV 7.0 L, Neut % (Auto) 77.1, Lymph % (Auto ) 17.2, [place] % (Auto) 3.3, Eos % (Auto) 2.2, Baso % (Auto) 0.2, Neut # (Auto) 5.0, Lymph # (Auto) 1.1, [place] # (Auto) 0.2, Eos # (Auto) 0.1, Baso # (Auto) 0.0 12/13/17 15:40: Sodium 144, Potassium 2.7 L*, Chloride 102, Carbon Dioxide 36 H , Anion Gap 8.7, BUN 6 L, Creatinine 0.52 L, Estimated Creat Clear 42, Estimated GFR 118, Est GFR ( Amer) 142, Glucose 94, Calcium 8.4 L, Total Bilirubin 0.5, AST 21, ALT 18, Alkaline Phosphatase 83, Troponin I < 0.02, Total Protein 6.0 L, Albumin 2.5 L, Globulin 3.5 H, Albumin/Globulin Ratio 0.7 L 12/13/17 15:40: Urine Color Yellow, Urine Appearance Clear, Urine pH 6.0, Ur Specific [place] >= 1.030, Urine Protein Negative, Urine Glucose (UA) Negative, Urine Ketones Negative, Urine Blood Negative, Urine Nitrate Negative, Urine Bilirubin Negative, Urine Urobilinogen 1.0, Ur Leukocyte Esterase 1+ A, Urine RBC Occasional, Urine WBC 10-20, Ur Squamous Epith Cells Occasional, Ur Transition Epith Cell 3-5, Calcium Oxalate Crystal Trace, Urine Bacteria 2+, Hyaline Casts 10-20, Urine Mucus 3+ 12/13/17 17:31: Lactate 0.6 12/13/17 22:00: Tobramycin Trough 5.0 H 12/14/17 06:12: Tobramycin Trough 1.7 12/14/17 06:12: Sodium 143, Potassium 3.5 D, Chloride 105, Carbon Dioxide 34 H , Anion Gap 4.1 L, BUN 7, Creatinine 0.48 L, Estimated Creat Clear 47, Estimated GFR 129, Est GFR ( Amer) 156, Glucose 93, Calcium 7.9 L 12/14/17 07:10: HIV 1&2 Antibody Rapid Non-reactive Medical History: Reports:: Seizures (schizoaffective; PD) Denies:: Cancer, Diabetes Mellitus Type 1, Diabetes Mellitus Type 2, MRSA Assessment and Plan - Assessment and plan all Dx Assessment and Plan for all problems:: BASED ON TOBRAMYCIN LEVELS OF 5.0 (4-HOUR POST INFUSION) AND 1.7 (12 HOUR POST INFUSION) (C-MAX=7.5MCG/ML C-MIN=0.3 MCG/ML), RECOMMEND INCREASING DOSE TO 360MG DAILY. PHARMACY WILL CONTINUE TO MONITOR DAILY AND ADJUST DOSE APPROPRIATE. -CARINE COVARRUBIAS, RAFITAD
--- NOTE | 2017-12-15 08:21 | Progress Note ---
Internal Medicine - PN: Subj *Date: 12/15/17 *Time: 08:18 Interval history: doing better this am with no fever and alert - Exam Vital signs and Labs for Last 24 Hours: Temp Pulse Resp BP Pulse Ox 98.0 F 87 22 125/60 98 12/15/17 04:11 12/15/17 04:11 12/15/17 04:11 12/15/17 04:11 12/15/17 04:11 Laboratory Results - last 24 hr 12/14/17 07:10: HIV 1&2 Antibody Rapid Non-reactive 12/15/17 07:15: Random Tobramycin 2.1 I & O for Last 24 hours: Intake & Output 12/12/17 12/13/17 12/14/17 12/15/17 11:59 11:59 11:59 11:59 Intake Total 480 / 480 2504 / 2504 Output Total 250 / 250 1050 / 1050 Balance 230 / 230 1454 / 1454 Weight 119 lb 7 oz 119 lb 7 oz Microbiology Reports for the Last 24 Hours: Microbiology 12/13/17 15:40 Urine,Catheterized Urine Culture - Preliminary NO GROWTH AFTER 24 HOURS - Constitutional no acute distress - *Routine HEENT Exam Head: Present: normocephalic Eye: Present: EOMI, PERRL ENT: Present: mucous membranes dry - *Routine Neck Exam Absent: JVD - *Routine Respiratory Exam Present: CTA bilaterally - *Routine Cardiovascular Exam Present: RRR, murmur, S4 - *Routine Abdominal Exam Present: soft - *Routine Extremities Exam Absent: calf tenderness - *Routine Skin Exam Comments: has decubitus - *Routine Neurological Exam Present: alert - Routine Psychiatric Exam Present: unable to assess Assessment and Plan (1) Change in mental status Current visit: Yes Status: Acute Qualifiers: Altered mental status type: delirium Qualified Code(s): R41.0 - Disorientation, unspecified Category: Medical Code(s): R41.82 - Altered mental status, unspecified (2) RBBB (right bundle branch block with left anterior fascicular block) Current visit: Yes Status: Acute Category: Medical Code(s): I45.2 - Bifascicular block (3) Schizoaffective disorder, depressive type Current visit: Yes Status: Acute Category: Medical Code(s): F25.1 - Schizoaffective disorder, depressive type (4) Decubitus ulcer of buttock, stage 4 Current visit: Yes Status: Acute Category: Medical Code(s): L89.304 - Pressure ulcer of unspecified buttock, stage 4 (5) Hypokalemia Current visit: Yes Status: Acute Category: Medical Code(s): E87.6 - Hypokalemia
--- NOTE | 2017-12-15 08:30 | Pharmacy Consult Notes ---
- Pharmacy Consult Date: 12/15/17 Time: 08:28 Referring provider: DR. COBB Reason for Consult:: TOBRAMYCIN LEVEL Allergies and ADEs:: Allergies Allergy/AdvReac Type Severity Reaction Status Date / Time egg [From EGGS (FOOD/DRUG)] Allergy Unknown I-RASH Verified 07/28/17 08:44 Penicillins [PENICILLINS] Allergy Unknown Verified 07/28/17 08:44 Sulfa (Sulfonamide Allergy Unknown Verified 07/28/17 08:44 Antibiotics) [SULFA (SULFONAMIDE ANTIBIOTICS)] trimethoprim [TRIMETHOPRIM] Allergy Unknown Verified 07/28/17 08:44 From EGGS (FOOD/DRUG) Allergy Unknown I-RASH Uncoded 07/01/17 09:29 Home Medications:: Home Medications Medication Instructions Recorded Confirmed Type acetaminophen 325 mg capsule 650 mg PO Q6HP PRN 07/01/17 12/13/17 History amlodipine 10 mg tablet 10 mg PO HS 30 Days #30 07/01/17 12/13/17 History risperidone 1 mg tablet 1 mg PO BID 30 Days #60 07/01/17 12/13/17 History sertraline 50 mg tablet 50 mg PO DAILY 30 Days #30 07/01/17 12/13/17 History levETIRAcetam [Keppra] 750 mg PO BID 07/28/17 12/13/17 History Acyclovir 800 mg PO DAILY 11/29/17 12/13/17 History Docusate Sodium [Docusate Sodium 100 mg PO BID 11/29/17 12/13/17 History 100mg Cap] Omeprazole [Omeprazole 40mg 40 mg PO DAILY 11/29/17 12/13/17 History Capsule] Aspirin [Aspirin 81mg chewable 81 mg PO DAILY 11/30/17 12/13/17 History tab] Baclofen 20 mg PO Q8HP PRN 11/30/17 12/13/17 History LORazepam [Ativan] 0.5 mg PO Q12H PRN 11/30/17 12/13/17 History Lactulose [Lactulose 10gm/15ml 30 ml PO DAILYP PRN 11/30/17 12/13/17 History Oral Soln] Lisinopril [Lisinopril 20mg Tab] 20 mg PO DAILY 11/30/17 12/13/17 History Polyethylene Glycol 3350 [Miralax 17 gm PO DAILYP PRN 11/30/17 12/13/17 History 17gm Packet] Sennosides [Senna] 8.6 mg PO DAILY 11/30/17 12/13/17 History levoFLOXacin [Levaquin 500mg 500 mg PO DAILY 12/09/17 12/13/17 History tab] Melatonin 6 mg PO HS 12/14/17 12/14/17 History Height: 1.6 m Weight: 54.176 kg Laboratory Results:: Laboratory Results - last 24 hr 12/14/17 07:10: HIV 1&2 Antibody Rapid Non-reactive 12/15/17 07:15: Random Tobramycin 2.1 Medical History: Reports:: Seizures (schizoaffective; PD) Denies:: Cancer, Diabetes Mellitus Type 1, Diabetes Mellitus Type 2, MRSA Assessment and Plan (1) Change in mental status Current visit: Yes Status: Acute Qualifiers: Altered mental status type: delirium Qualified Code(s): R41.0 - Disorientation, unspecified Category: Medical Code(s): R41.82 - Altered mental status, unspecified (2) RBBB (right bundle branch block with left anterior fascicular block) Current visit: Yes Status: Acute Category: Medical Code(s): I45.2 - Bifascicular block (3) Schizoaffective disorder, depressive type Current visit: Yes Status: Acute Category: Medical Code(s): F25.1 - Schizoaffective disorder, depressive type (4) Decubitus ulcer of buttock, stage 4 Current visit: Yes Status: Acute Category: Medical Code(s): L89.304 - Pressure ulcer of unspecified buttock, stage 4 (5) Hypokalemia Current visit: Yes Status: Acute Category: Medical Code(s): E87.6 - Hypokalemia - Assessment and plan all Dx Assessment and Plan for all problems:: BASED ON PATIENT FACTORS AND TOBRAMYCIN LEVEL (POST 12-HR INFUSION) LEVEL OF 2.1 , RECOMMEND CONTINUING CURRENT DOSE OF 360MG IV Q24H. PHARMACY WILL CONTINUE TO MONITOR AND ADJUST DOSE APPROPRIATE. -CARINE COVARRUBIAS, RAFITAD
[2017-12-15 10:17] LABS: Hepatitis B Core Antibody IgM Negative (Negative); Hepatitis B Surface Antigen Negative (Negative)
[2017-12-16 08:03] LABS: Basophils % 0.3 % (0.1-2.0); Eosinophils # 0.1 K/mm3 (0.0-0.4); Eosinophils % 1.4 % (0.1-12.0); Hematocrit 27.6 % (37.0-47.0); Hemoglobin 8.9 g/dL (12.2-16.2); Lymphocytes % 12.6 K/mm3 (10-50); Mean Corpuscular HGB Conc 32.2 g/dL (31.8-35.4); Mean Corpuscular Hemoglobin 29.9 pg (27.0-31.2); Mean Corpuscular Volume 92.9 fl (81-99); Mean Platelet Volume 6.8 fl (7.4-10.4); Monocytes # 0.2 K/mm3 (0.1-1.0); Monocytes % 2.9 % (1.7-9.3); Neutrophils # 6.6 K/mm3 (1.8-7.8); Neutrophils % 82.9 % (37.0-80.0); Platelet Count 372 K/mm3 (142-424); Red Blood Count 2.97 M/mm3 (4.20-5.40); Red Cell Distribution Width 15.2 % (11.5-17.5)
[2017-12-16 08:17] LABS: Anion Gap 10.1 mEq/L (5-15); Calcium 8.4 mg/dL (8.5-10.1); Potassium 4.1 mmoL/L (3.5-5.1)
--- NOTE | 2017-12-16 12:30 | Discharge Summary ---
General - General Admission date:: 12/13/17 Discharge date: 12/16/17 HPI HPI: this wf sent from [facility] for change in mental status - in from assisted for altered mental status, lethargic all day. Patient denies any current complaints. Denies pain. Frequent visits here for the same complaint. Recent admission 12/03/17 through 12/09/17. Recent urinary tract infection. Currently on Levaquin for the past 3 days for UTI, to be continued through 12/16/17. Hospital Course Hospital Course: pt has did well in the hospital with resolving uti and no new growth on culture and stable labs - she is awake but slow at times but at baseline with ox 2 - no fever and decubitus stable Objective Vital signs: Temp Pulse Resp BP Pulse Ox 99.2 F 111 H 18 140/75 98 12/16/17 07:36 12/16/17 07:36 12/16/17 07:36 12/16/17 07:36 12/16/17 07:36 no acute distress, thin - *Routine HEENT Exam Head: Present: normocephalic Eye: Present: EOMI, PERRL ENT: Present: mucous membranes dry - *Routine Neck Exam Present: supple. Absent: JVD - *Routine Respiratory Exam Present: decreased breath sounds - *Routine Cardiovascular Exam Present: RRR, murmur, S4 - *Routine Abdominal Exam Present: soft - *Routine Extremities Exam Absent: calf tenderness Comments: chronic changes - *Routine Skin Exam Comments: has stage 4 decubitus buttock - *Routine Neurological Exam Present: alert, CN II-XII intact - Routine Psychiatric Exam Present: unable to assess Results Labs on day of discharge: Labs from last 24 hours 12/16/17 12/16/17 07:35 07:35 WBC 8.0 RBC 2.97 L Hgb 8.9 L Hct 27.6 L MCV 92.9 MCH 29.9 MCHC 32.2 RDW 15.2 Plt Count 372 MPV 6.8 L Neut % (Auto) 82.9 H Lymph % (Auto) 12.6 [place] % (Auto) 2.9 Eos % (Auto) 1.4 Baso % (Auto) 0.3 Neut # (Auto) 6.6 Lymph # (Auto) 1.0 [place] # (Auto) 0.2 Eos # (Auto) 0.1 Baso # (Auto) 0.0 Sodium 143 Potassium 4.1 Chloride 106 Carbon Dioxide 31 Anion Gap 10.1 BUN 7 Creatinine 0.53 L Estimated Creat Clear 47 Estimated GFR 115 Est GFR ( Amer) 139 Glucose 136 H Calcium 8.4 L Preliminary micro results at discharge 12/13/17 17:40 Blood Culture - Preliminary Blood NO GROWTH AFTER 48 HOURS 12/13/17 17:31 Blood Culture - Preliminary Blood NO GROWTH AFTER 48 HOURS DS: Diagnosis - Discharge Diagnosis (1) Change in mental status Status: Acute (2) RBBB (right bundle branch block with left anterior fascicular block) Status: Acute (3) Schizoaffective disorder, depressive type Status: Acute (4) Decubitus ulcer of buttock, stage 4 Status: Acute (5) Hypokalemia Status: Acute (6) Anemia Status: Acute Discharge Plan - Patient Discharge Instructions ACTIVITY: Continue current activity DIET: continue same diet - Follow up Plan Disposition: [facility] Home Medications: Home Medications Medication Instructions Recorded Confirmed Type acetaminophen 325 mg capsule 650 mg PO Q6HP PRN 07/01/17 12/13/17 History amlodipine 10 mg tablet 10 mg PO HS 30 Days #30 07/01/17 12/13/17 History risperidone 1 mg tablet 1 mg PO BID 30 Days #60 07/01/17 12/13/17 History sertraline 50 mg tablet 50 mg PO DAILY 30 Days #30 07/01/17 12/13/17 History levETIRAcetam [Keppra] 750 mg PO BID 07/28/17 12/13/17 History Acyclovir 800 mg PO DAILY 11/29/17 12/13/17 History Docusate Sodium [Docusate Sodium 100 mg PO BID 11/29/17 12/13/17 History 100mg Cap] Omeprazole [Omeprazole 40mg 40 mg PO DAILY 11/29/17 12/13/17 History Capsule] Aspirin [Aspirin 81mg chewable 81 mg PO DAILY 11/30/17 12/13/17 History tab] Baclofen 20 mg PO Q8HP PRN 11/30/17 12/13/17 History LORazepam [Ativan] 0.5 mg PO Q12H PRN 11/30/17 12/13/17 History Lactulose [Lactulose 10gm/15ml 30 ml PO DAILYP PRN 11/30/17 12/13/17 History Oral Soln] Lisinopril [Lisinopril 20mg Tab] 20 mg PO DAILY 11/30/17 12/13/17 History Polyethylene Glycol 3350 [Miralax 17 gm PO DAILYP PRN 11/30/17 12/13/17 History 17gm Packet] Sennosides [Senna] 8.6 mg PO DAILY 11/30/17 12/13/17 History levoFLOXacin [Levaquin 500mg 500 mg PO DAILY 12/09/17 12/13/17 History tab] Melatonin 6 mg PO HS 12/14/17 12/14/17 History Prescriptions/Medication Reconciliation: Continue acetaminophen 325 mg capsule 650 mg PO Q6HP PRN PRN Reason: PAIN/FEVER sertraline 50 mg tablet 50 mg PO DAILY 30 Days #30 amlodipine 10 mg tablet 10 mg PO HS 30 Days #30 risperidone 1 mg tablet 1 mg PO BID 30 Days #60 levETIRAcetam [Keppra] 750 mg PO BID Sennosides [Senna] 8.6 mg PO DAILY Polyethylene Glycol 3350 [Miralax 17gm Packet] 17 gm PO DAILYP PRN PRN Reason: Constipation Aspirin [Aspirin 81mg chewable tab] 81 mg PO DAILY LORazepam [Ativan] 0.5 mg PO Q12H PRN PRN Reason: Anxiety Baclofen 20 mg PO Q8HP PRN PRN Reason: MUSCLE SPASMS Melatonin 6 mg PO HS Omeprazole [Omeprazole 40mg Capsule] 40 mg PO DAILY Docusate Sodium [Docusate Sodium 100mg Cap] 100 mg PO BID Acyclovir 800 mg PO DAILY Lisinopril [Lisinopril 20mg Tab] 20 mg PO DAILY Lactulose [Lactulose 10gm/15ml Oral Soln] 30 ml PO DAILYP PRN PRN Reason: Constipation Discontinued levoFLOXacin [Levaquin 500mg tab] 500 mg PO DAILY
[2017-12-16 12:56] LABS: HIV Screen 4th Generation wRfx Non Reactive (Non Reactive); Hepatitis C Antibody <0.1 s/co ratio (0.0-0.9)
== END 2017-12-16 14:10 ==
LOC: ER 14:53 → 2ND 14:53
PROVIDERS: ADMIT Emergency Medicine; ATTEND Emergency Medicine

== ENCOUNTER 2018-01-29 06:12 | Observation (INO) ==
--- NOTE | 2018-01-29 07:45 | Procedure Note ---
- Procedure: Date: 01/29/18 Procedure Performed:: Percutaneous endoscopic gastrostomy tube placement Indications:: Dysphagia Feeding difficulty History of stroke Performing Provider:: Helio Harry MD Referring Provider:: . Sedation:: Monitored anesthesia care Procedure:: After informed consent was obtained the patient was taken to the endoscopy suite. Monitored anesthesia care ensued after she was maintained in the supine position. The gastroscope was advanced. The stomach was insufflated. Transillumination and impulse were easily seen. The left upper quadrant was prepped and draped in a sterile fashion. After infiltration of local anesthetic a small transverse incision was made at the site of maximal impulse/transillumination. The large Angiocath was placed under direct visualization. The retrieval snare was then secured to the guidewire without difficulty. Guidewire was easily drawn back in a retrograde manner and secured to the gastrostomy tube. The gastrostomy tube was then pulled into position and secured at 2 cm. The endoscope was placed back in position. The "bumper" was in good position with no sign of active bleeding. The tube was easily rotated. An abdominal binder was placed in position after a drain bag was secured. The patient was transferred to recovery in stable condition. Findings:: Tube secured at 2 cm Specimens:: None Recommendations:: Post-PEG orders written Complications:: No immediate Estimated blood obtained (mL): 1
--- NOTE | 2018-01-29 07:58 | Progress Note ---
[facility] Anesthesia Checklist - Patient Identification Patient Identification: Arm Band - Structural Data Admitted From: Long-term Nursing Facility Planned Operative Procedure/s: PEG Tube placement Consent for Planned Operative Procedure(s) Verified: Yes Verified Documents: Surgical Consent, History and Physical - NPO Status Verified Time NPO: 00:00 - Additional verifications Anesthesia Reactions: No - Airway Assessment C-Spine Mobility Assessed: Yes (mp2) TMJ Mobility Assessed: Yes Dentition: Poor Dentition - Neurological Assessment Level of Consciousness: Awake, Alert - Anesthesia Plan Anesthesia Risk discussed: Yes Anesthesia Plan: Verified ASA Class: IV Anesthesia Type: MAC [facility] History I have reviewed the patient's past medical history: Yes Medical History: Reports:: Aneurysm, Coronary Artery Disease, Cerebrovascular Accident, Home Oxygen (2L), Hypertension, Seizures Denies:: Cancer, Diabetes Mellitus Type 1, Diabetes Mellitus Type 2, Internal Pacemaker, Lung Disease, MRSA Other Medical History: Reports: Other Laterality Cases: Bilateral: Total Hip Replacement Other Surgeries: Yes: Appendectomy, Cardiac Surgery, Hysterectomy-Total, Other. No: Pacemaker Amputation: No - *Social History Smoking Status: Former smoker Tobacco Type: cigarettes Alcohol Intake: never Substance Use Type: denies use Occupational Status: disabled Housing: jail Household Members: none *Family Hx:: Stroke, Hypertension
--- NOTE | 2018-01-29 14:56 | Pharmacy Consult Notes ---
[facility] Pharmacy VTE Monitoring - Patient Demographics Admission date: 01/29/18 Report Date: 01/29/18 Time: 14:56 Allergies/Adverse Reactions: Patient Allergies No Known Allergies Allergy (Verified 01/29/18 06:39) Height: 1.6 m Weight: 45.132 kg - VTE Risk Was VTE Risk Assessment Performed: Yes VTE Score: 4 VTE Risk Level: Low Risk - Prophylaxis VTE Prophylaxis Ordered?: Yes Types of VTE Prophylaxis: TEDS Knee High Location of Applied Device: Bilateral Lower Extremeties - VTE Diagnosis Confirmed Treatment or plan recommended: Continue Current Treatment
--- NOTE | 2018-01-30 06:51 | Progress Note ---
Subjective Patient reports: other (Tolerating tube feeds) Exam Vital signs and Labs for Last 24 Hours: Temp Pulse Resp BP Pulse Ox 98.9 F 78 14 121/60 99 01/30/18 05:31 01/30/18 04:00 01/30/18 04:00 01/30/18 04:00 01/30/18 04:00 I & O for Last 24 hours: Intake & Output 01/27/18 01/28/18 01/29/18 01/30/18 11:59 11:59 11:59 11:59 Intake Total 1638 / 1638 Output Total 700 / 700 Balance 938 / 938 Weight 124 lb 99 lb 7.984 oz 99 lb 7.984 oz - Constitutional no acute distress - *Routine Abdominal Exam Present: soft (PEG in position without sign of complication) Progress Note: A&P (1) Feeding difficulties Status: Acute Assessment and plan: Overall, doing well status post PEG placement. Discharge back to halfway with continuation of tube feeds as per primary service Current Visit: Yes (2) Dysphagia Status: Acute Current Visit: Yes
--- NOTE | 2018-01-30 06:55 | Discharge Summary ---
General - General Admission date:: 01/29/18 Discharge date: 01/30/18 HPI HPI: This is a 67-year-old female who has altered sensorium and history of stroke/seizure disorder. She has had increasing difficulty with PO intake and significant dysphagia. Her primary care provider requested PEG placement. Hospital Course Hospital Course: The patient underwent placement of percutaneous endoscopic gastrostomy tube. Please see endoscopy report for detail. She was maintained in observation overnight as her tube feeds were started. She tolerated tube feeds and had no overt sign of procedural complication. She was deemed appropriate for discharge on the morning of post procedure day 1. Objective Vital signs: Temp Pulse Resp BP Pulse Ox 98.9 F 78 14 121/60 99 01/30/18 05:31 01/30/18 04:00 01/30/18 04:00 01/30/18 04:00 01/30/18 04:00 no acute distress - *Routine Respiratory Exam Absent: respiratory distress - *Routine Cardiovascular Exam Present: RRR - *Routine Abdominal Exam Present: soft - *Routine Neurological Exam Present: sensory deficit, motor deficit DS: Diagnosis - Discharge Diagnosis (1) Feeding difficulties Status: Acute (2) Dysphagia Status: Acute Discharge Plan - Patient Discharge Instructions ACTIVITY: Continue current activity DIET: other (Tube feeds as per primary care provider) Additional Instructions: The patient's primary care provider will make any appropriate changes to tube feeding regimen. Prior to orders from primary care provider, please continue current tube feeds as per dietary recommendations. - Follow up Plan Disposition: [facility] Home Medications: Home Medications Medication Instructions Recorded Confirmed Type amlodipine 10 mg tablet 10 mg PO HS 30 Days #30 07/01/17 01/29/18 History risperidone 1 mg tablet 1 mg PO BID 30 Days #60 07/01/17 01/29/18 History sertraline 50 mg tablet 50 mg PO DAILY 30 Days #30 07/01/17 01/29/18 History levETIRAcetam [Keppra] 750 mg PO BID 07/28/17 01/29/18 History Acyclovir 800 mg PO DAILY 11/29/17 01/29/18 History Omeprazole [Omeprazole 40mg 40 mg PO DAILY 11/29/17 01/29/18 History Capsule] Aspirin [Aspirin 81mg chewable 81 mg PO DAILY 11/30/17 01/29/18 History tab] Baclofen 20 mg PO Q8HP PRN 11/30/17 01/29/18 History LORazepam [Ativan] 0.5 mg PO Q12H PRN 11/30/17 01/29/18 History Lactulose [Lactulose 10gm/15ml 30 ml PO DAILYP PRN 11/30/17 01/29/18 History Oral Soln] Lisinopril [Lisinopril 20mg Tab] 20 mg PO DAILY 11/30/17 01/29/18 History Polyethylene Glycol 3350 [Miralax 17 gm PO DAILYP PRN 11/30/17 01/29/18 History 17gm Packet] Sennosides [Senna] 8.6 mg PO DAILY 11/30/17 01/29/18 History Melatonin 6 mg PO HS 12/14/17 01/29/18 History Furosemide [Furosemide 40MG tAB] 40 mg PO DAILY 01/23/18 01/29/18 History Potassium Chloride [Pot Chlor 10 20 meq PO DAILY 01/23/18 01/29/18 History mEq Tab] Nitrofurantoin Monohyd/M-Cryst 100 mg PO BID 01/28/18 01/28/18 History [Macrobid 100 mg Capsule] Acetaminophen 500 mg PO Q6HP PRN 01/29/18 01/29/18 History Docusate Sodium [Docusate Sod 250 mg PO DAILY 01/29/18 01/29/18 History Liquid 100mg/10mL udc] Prescriptions/Medication Reconciliation: No Action sertraline 50 mg tablet 50 mg PO DAILY 30 Days #30 amlodipine 10 mg tablet 10 mg PO HS 30 Days #30 risperidone 1 mg tablet 1 mg PO BID 30 Days #60 levETIRAcetam [Keppra] 750 mg PO BID Sennosides [Senna] 8.6 mg PO DAILY Polyethylene Glycol 3350 [Miralax 17gm Packet] 17 gm PO DAILYP PRN PRN Reason: Constipation Aspirin [Aspirin 81mg chewable tab] 81 mg PO DAILY LORazepam [Ativan] 0.5 mg PO Q12H PRN PRN Reason: Anxiety Baclofen 20 mg PO Q8HP PRN PRN Reason: MUSCLE SPASMS Melatonin 6 mg PO HS Potassium Chloride [Pot Chlor 10 mEq Tab] 20 meq PO DAILY Furosemide [Furosemide 40MG tAB] 40 mg PO DAILY Docusate Sodium [Docusate Sod Liquid 100mg/10mL udc] 250 mg PO DAILY Acetaminophen 500 mg PO Q6HP PRN PRN Reason: PAIN/FEVER Omeprazole [Omeprazole 40mg Capsule] 40 mg PO DAILY Acyclovir 800 mg PO DAILY Lisinopril [Lisinopril 20mg Tab] 20 mg PO DAILY Lactulose [Lactulose 10gm/15ml Oral Soln] 30 ml PO DAILYP PRN PRN Reason: Constipation Nitrofurantoin Monohyd/M-Cryst [Macrobid 100 mg Capsule] 100 mg PO BID
== END 2018-01-30 10:10 ==
LOC: 2ND 06:12 → OUTP 06:12 → 2ND 08:19
PROVIDERS: ADMIT Surgery; ATTEND Surgery
CPT/HCPCS: 96374